=== PATIENT | male | born 1950 | race Caucasian/White ===

== ENCOUNTER 2021-02-07 09:39 | Outpatient (REF) | payer MEDICARE, SELFPAY ==
[2021-02-07 11:24] LABS: MANUAL DIFF FLAG NO
[2021-02-07 11:44] LABS: Basophils Percent Auto 0.4 % (0-2); Eosinophils Absolute Auto 0.1 X10*3/uL (0.0-0.4); Hematocrit 42.6 % (42-52); Hemoglobin 14.6 g/dl (14.0-18.0); Imm Gran Abs Auto 0.01 X10*3/uL (0.00-0.03); Imm Gran Pct Auto 0.2 % (0.0-0.4); Lymphocytes Absolute Auto 1.2 X10*3/uL (1.2-4.9); Lymphocytes Percent Auto 24.7 % (20-40); Mean Corpuscular HGB Conc 34.3 g/dl (31.0-36.0); Mean Corpuscular Volume 96.4 fL (80-98); Mean Platelet Volume 9.6 fL (9.4-12.4); Monocytes Absolute Auto 0.5 X10*3/uL (0.1-1.2); Monocytes Percent Auto 10.2 % (2-11); Neutrophils Absolute Auto 2.9 X10*3/uL (2.0-8.3); Neutrophils Percent Auto 61.5 % (45-73); Platelet Count 250 X10*3/uL (160-400); Red Blood Count 4.42 X10*6/uL (4.60-5.80); Red Cell Distribution Width 12.7 % (11.0-16.0); White Blood Count 4.7 X10*3/uL (4.8-10.8)
[2021-02-07 12:11] LABS: Alanine Aminotransferase 21 U/L (0-40); Albumin Level 4.5 g/dL (3.5-5.0); Alkaline Phosphatase 63 U/L (39-117); Anion Gap 13 (12-20); Aspartate Amino Transferase 21 U/L (5-37); Bilirubin Total 1.4 mg/dL (0.0-1.0); Blood Urea Nitrogen 17 mg/dL (9-16); Calcium 9.8 mg/dL (8.4-10.2); Carbon Dioxide 26 mmol/L (22-29); Chloride 104 mmol/L (96-108); Cholesterol 256 mg/dL; Estimated Glomerular Filt Rate > 60; Glucose Fasting 107 mg/dL (60-99); HDL Cholesterol 62 mg/dL; LDL Cholesterol Calculated 178 mg/dl; Potassium 4.4 mmol/L (3.3-5.1); Sodium 139 mmol/L (135-145); Total Protein 7.3 g/dL (6.5-8.0); Triglycerides 82 mg/dL
[2021-02-07 12:19] LABS: Thyroid Stimulating Hormone 1.74 uIU/mL (0.32-4.0)
== END 2021-02-07 09:40 | disposition home or self-care (01) ==
LOC: HO.HMGCLDS 09:39
PROVIDERS: PCP Internal Medicine; Visit Provider Internal Medicine
DX: I10 Essential (primary) hypertension (principal); F41.1 Generalized anxiety disorder; J45.20 Mild intermittent asthma, uncomplicated; E78.00 Pure hypercholesterolemia, unspecified; I83.893 Varicose veins of bilateral lower extremities with other complications
CPT/HCPCS: 36415; 80053; 80061; 84443; 85025

== ENCOUNTER 2021-09-16 11:13 | Outpatient (REF) | payer MEDICARE, SELFPAY ==
--- NOTE | ~2021-09-16 | XR_ITS ---
EXAMINATION: XR CHEST CLINICAL INFORMATION: Night sweats COMPARISON: 08/17/2017 TECHNIQUE: PA, lateral and apical lordotic views of the chest FINDINGS: Normal symmetric lung volumes. No parenchymal consolidation. No pleural effusion. No pneumothorax. Cardiomediastinal silhouette and pulmonary vascularity are within normal limits. Aorta atherosclerotic. No acute osseous abnormalities. XR/XR chest w apical lordotic IMPRESSION: Lungs are clear. No evidence of active or quiescent granulomatous disease. No obvious hilar adenopathy.
[2021-09-16 14:19] LABS: MANUAL DIFF FLAG NO
[2021-09-16 14:25] LABS: Appearance Urine CLEAR; Basophils Percent Auto 0.4 % (0-2); Color Urine YELLOW; Eosinophils Absolute Auto 0.1 X10*3/uL (0.0-0.4); Eosinophils Percent Auto 2.8 % (0-4); Glucose Urine UA NEG (NEG); Hematocrit 42.1 % (42.0-52.0); Hemoglobin 14.6 g/dl (14.0-18.0); Imm Gran Abs Auto 0.01 X10*3/uL (0.00-0.03); Imm Gran Pct Auto 0.2 % (0.0-0.4); Leukocyte Esterase Urine NEG (NEG); Lymphocytes Absolute Auto 1.4 X10*3/uL (1.2-4.9); Lymphocytes Percent Auto 27.3 % (20-40); Mean Corpuscular HGB Conc 34.7 g/dl (31.0-36.0); Mean Corpuscular Hemoglobin 32.7 pg (27.0-33.0); Mean Corpuscular Volume 94.2 fL (80.0-98.0); Mean Platelet Volume 9.8 fL (9.4-12.4); Monocytes Absolute Auto 0.6 X10*3/uL (0.1-1.2); Monocytes Percent Auto 11.4 % (2-11); Neutrophils Absolute Auto 2.9 x10*3/uL (2.0-8.3); Neutrophils Percent Auto 57.9 % (45-73); Nitrite Urine NEG (NEG); Platelet Count 266 X10*3/uL (160-400); Red Blood Count 4.47 X10*6/uL (4.60-5.80); Red Cell Distribution Width 12.8 % (11.0-16.0); Urine Blood NEG (NEG); Urine Ketones NEG (NEG); Urine Protein NEG (NEG-TRACE)
[2021-09-16 14:42] LABS: RBC Urine 0-2 /HPF (0); WBC Urine 0-2 /HPF (0-4)
[2021-09-16 14:45] LABS: Alanine Aminotransferase 31 U/L (0-40); Albumin Level 4.5 g/dL (3.5-5.0); Alkaline Phosphatase 69 U/L (39-117); Anion Gap 15 (12-20); Aspartate Amino Transferase 27 U/L (5-37); Bilirubin Total 1.7 mg/dL (0.0-1.0); Blood Urea Nitrogen 17 mg/dL (9-16); C Reactive Protein 0.04 mg/dL (< or = 0.50); Calcium 9.6 mg/dL (8.4-10.2); Carbon Dioxide 24 mmol/L (22-29); Chloride 101 mmol/L (96-108); Cholesterol 218 mg/dL; Estimated Glomerular Filt Rate > 60; Glucose Fasting 101 mg/dL (60-99); HDL Cholesterol 66 mg/dL; LDL Cholesterol Calculated 129 mg/dl; Potassium 4.3 mmol/L (3.3-5.1); Sodium 136 mmol/L (135-145); Total Protein 7.7 g/dL (6.5-8.0); Triglycerides 115 mg/dL
[2021-09-16 14:55] LABS: PSA,Total (Free>4and<10) 2.19 ng/mL (0.00-4.00); Thyroid Stimulating Hormone 1.88 uIU/mL (0.32-4.0); Vitamin D 25-OH Total 27.7 ng/mL (>30)
[2021-09-16 15:13] LABS: Erythrocyte Sedimentation Rate 2 MM/HR (0-15)
[2021-09-19 07:47] LABS: TS Negative Control Passed; TS Panel A 2; TS Panel B 0; TS Positive Control Passed; TSpotTB Negative (Negative)
== END 2021-09-16 11:14 | disposition home or self-care (01) ==
LOC: HO.HMGCLDS 11:13
PROVIDERS: PCP Internal Medicine; Visit Provider Internal Medicine
DX: Z12.5 Encounter for screening for malignant neoplasm of prostate (principal); Z11.1 Encounter for screening for respiratory tuberculosis; F41.1 Generalized anxiety disorder; I10 Essential (primary) hypertension; R35.0 Frequency of micturition; J45.20 Mild intermittent asthma, uncomplicated; I83.893 Varicose veins of bilateral lower extremities with other complications; E78.00 Pure hypercholesterolemia, unspecified; R61 Generalized hyperhidrosis
CPT/HCPCS: 36415; 71047; 80053; 80061; 81001; 82306; 84153; 84443; 85025; 85652; 86140; 86481

== ENCOUNTER 2021-11-16 13:55 | Outpatient (REF) | payer MEDICARE, SELFPAY ==
--- NOTE | ~2021-11-16 | XR_ITS ---
EXAMINATION: XR SHOULDER, LEFT XR CLAVICLE, LEFT CLINICAL INFORMATION: Recent fall, pain left side. COMPARISON: Chest radiographs 09/16/2021 TECHNIQUE: 3 views left shoulder and 2 views of the left clavicle are obtained. There are total of 5 views. FINDINGS: There is minimally displaced fracture left posterior lateral 6th rib. There is no destructive process. The left lung apex is clear and there is no pneumothorax or pleural reaction. The left clavicle and left shoulder show no fracture or dislocation. The acromioclavicular alignment is normal. There is some minor spurring at the greater tuberosity and the superior lateral acromium. PSA to call report to office. XR/XR clavicle LT IMPRESSION: 1. Fracture left posterior lateral sixth rib. No pneumothorax or pleural reaction. 2. No fracture or dislocation left shoulder, left clavicle.
--- NOTE | ~2021-11-16 | XR_ITS ---
EXAMINATION: XR HIP, LEFT CLINICAL INFORMATION: Fall, trauma, pain COMPARISON: None TECHNIQUE: AP view pelvis is performed along with AP and frog-lateral projections left hip 3 views. FINDINGS: There is no fracture or dislocation. No destructive process. There is mild narrowing superior medial left hip joint. No erosive change. The SI joints and pubis show no diastases. The bony pelvis appears intact. There are degenerative changes lower lumbar spine with vertebral spurring. Mild degenerative changes also noted right hip. Bowel gas unremarkable. XR/XR hip LT w PEL1V IMPRESSION: 1. No fracture or dislocation. 2. Mild degenerative changes lower lumbar spine and bilateral hips.
--- NOTE | ~2021-11-16 | XR_ITS ---
EXAMINATION: XR SHOULDER, LEFT XR CLAVICLE, LEFT CLINICAL INFORMATION: Recent fall, pain left side. COMPARISON: Chest radiographs 09/16/2021 TECHNIQUE: 3 views left shoulder and 2 views of the left clavicle are obtained. There are total of 5 views. FINDINGS: There is minimally displaced fracture left posterior lateral 6th rib. There is no destructive process. The left lung apex is clear and there is no pneumothorax or pleural reaction. The left clavicle and left shoulder show no fracture or dislocation. The acromioclavicular alignment is normal. There is some minor spurring at the greater tuberosity and the superior lateral acromium. PSA to call report to office. XR/XR shoulder LT min 2V IMPRESSION: 1. Fracture left posterior lateral sixth rib. No pneumothorax or pleural reaction. 2. No fracture or dislocation left shoulder, left clavicle.
== END 2021-11-16 13:56 | disposition home or self-care (01) ==
LOC: HO.HMGCX 13:55
PROVIDERS: PCP Internal Medicine; Visit Provider Internal Medicine
DX: S79.912D Unspecified injury of left hip, subsequent encounter (principal); S49.92XD Unspecified injury of left shoulder and upper arm, subsequent encounter
CPT/HCPCS: 73000; 73030; 73502

== ENCOUNTER 2021-11-24 12:38 | Emergency (ER) | payer MEDICARE, SELFPAY ==
[2021-11-24 13:02] VITALS: BP 133/85; PULSE 96; RESP 18; TEMP 36.2; O2SAT 98; BMI 30.5
[2021-11-24 13:41] LABS: MANUAL DIFF FLAG NO
[2021-11-24 13:42] LABS: Basophils Percent Auto 0.5 % (0-2); Eosinophils Absolute Auto 0.1 X10*3/uL (0.0-0.4); Eosinophils Percent Auto 1.9 % (0-4); Hematocrit 43.4 % (42.0-52.0); Hemoglobin 14.9 g/dl (14.0-18.0); Imm Gran Abs Auto 0.01 X10*3/uL (0.00-0.03); Imm Gran Pct Auto 0.2 % (0.0-0.4); Lymphocytes Absolute Auto 1.3 X10*3/uL (1.2-4.9); Lymphocytes Percent Auto 20.1 % (20-40); Mean Corpuscular HGB Conc 34.3 g/dl (31.0-36.0); Mean Corpuscular Hemoglobin 32.7 pg (27.0-33.0); Mean Corpuscular Volume 95.2 fL (80.0-98.0); Mean Platelet Volume 8.8 fL (9.4-12.4); Monocytes Absolute Auto 0.7 X10*3/uL (0.1-1.2); Monocytes Percent Auto 10.4 % (2-11); Neutrophils Absolute Auto 4.2 x10*3/uL (2.0-8.3); Neutrophils Percent Auto 66.9 % (45-73); Platelet Count 261 X10*3/uL (160-400); Red Blood Count 4.56 X10*6/uL (4.60-5.80); Red Cell Distribution Width 12.7 % (11.0-16.0); White Blood Count 6.3 X10*3/uL (4.8-10.8)
[2021-11-24 14:11] LABS: Alanine Aminotransferase 19 U/L (0-40); Albumin Level 4.6 g/dL (3.5-5.0); Alkaline Phosphatase 82 U/L (39-117); Anion Gap 13 (12-20); Aspartate Amino Transferase 26 U/L (5-37); Bilirubin Total 1.6 mg/dL (0.0-1.0); Blood Urea Nitrogen 14 mg/dL (9-16); Calcium 10.6 mg/dL (8.4-10.2); Carbon Dioxide 28 mmol/L (22-29); Chloride 101 mmol/L (96-108); Creatinine Clr Calc Pharmacy 69.9; Estimated Glomerular Filt Rate > 60; Glucose Random 115 mg/dL (60-115); Potassium 4.4 mmol/L (3.3-5.1); Sodium 138 mmol/L (135-145); Total Protein 7.7 g/dL (6.5-8.0)
== END 2021-11-24 17:00 | disposition left against medical advice (07) ==
PROVIDERS: Emergency Provider Emergency Medicine; PCP Internal Medicine
DX: R47.9 Unspecified speech disturbances (principal)
CPT/HCPCS: 36415; 80053; 85025; 99282; 99283

== ENCOUNTER 2021-11-25 10:59 | Emergency (ER) | payer MEDICARE, SELFPAY ==
--- NOTE | ~2021-11-25 | MR_ITS ---
EXAMINATION: MRI BRAIN WITHOUT CONTRAST CLINICAL INFORMATION: Infarct seen on CT head COMPARISON: CT scan of the head 11/25/2021. TECHNIQUE: Multiplanar MR imaging of the brain was performed without contrast. FINDINGS: There is gliosis and encephalomalacia involving the right superior frontal gyrus consistent with chronic changes of an old infarct within the vascular territory of the right anterior cerebral artery. A few scattered nonspecific foci of T2 FLAIR signal hyperintensity are also visualized within the periventricular white matter. No acute territorial infarct. No pathological magnetic susceptibility artifact. Intracranial vascular flow voids are maintained. There is no mastoid or middle ear effusion. Trivial mucosal thickening within ethmoid air cells. Globes and orbits are symmetric. MR/MR head/brain wo con IMPRESSION: There is a small chronic cortical infarct involving the right frontal lobe and a few scattered chronic small vessel ischemic changes within the periventricular white matter. No evidence of acute territorial infarct or hemorrhage.
--- NOTE | ~2021-11-25 | US_ITS ---
EXAMINATION: US EXTRACRANIAL CAROTID DUPLEX, BILATERAL CLINICAL INFORMATION: TIA COMPARISON: None TECHNIQUE: Real-time ultrasound and Doppler techniques (integrating B-mode 2-D vascular images, Doppler spectral analysis and color-flow Doppler imaging) were utilized to interrogate the extracranial carotid arteries, the vertebral arteries and proximal subclavian arteries bilaterally. The degree of stenosis is determined by criteria similar to NASCET. FINDINGS: Right Side: 1. There is no atherosclerotic plaque seen in the bifurcation/proximal ICA region. 2. The common carotid artery PSV proximally is 76 cm/s and distally 51 cm/s. 3. The proximal internal carotid artery velocities are 62 cm/s systolic and 28 cm/s diastolic. 4. The proximal external carotid artery PSV is 80 cm/s. 5. The vertebral artery shows antegrade flow. 6. The subclavian artery waveforms are normal. Left Side: 1. There is minimal atherosclerotic plaque seen in the bifurcation/proximal ICA region. 2. The common carotid artery PSV proximally is 95 cm/s and distally 53 cm/s. 3. The proximal internal carotid artery velocities are 64 cm/s systolic and 15 cm/s diastolic. 4. The proximal external carotid artery PSV is 82 cm/s. 5. The vertebral artery shows antegrade flow. 6. The subclavian artery waveforms are normal. US/US carotid duplex BI IMPRESSION: 1. RIGHT: Normal right internal carotid artery without atherosclerotic plaque or hemodynamically significant stenosis. 2. LEFT: Minimal, non-hemodynamically significant stenosis of the proximal left internal carotid artery corresponding to a 0-49% stenosis by velocity criteria.
--- NOTE | ~2021-11-25 | CT_ITS ---
EXAMINATION: CT HEAD WITHOUT CONTRAST CLINICAL INFORMATION: Loss of ability to speak COMPARISON: None TECHNIQUE: Contiguous axial imaging was performed from the skull base to vertex without intravenous administration of contrast. This CT examination was performed using dose optimization techniques as appropriate, variously including the following: *Automated exposure control *Adjustment of mA and/or kV according to patient size (this includes techniques or standardized protocols for targeted exams where dose is matched to indication/reason for exam; i.e. extremities or head) *Use of iterative reconstruction technique DLP: 792 mGy-cm FINDINGS: There is no evidence of an extra-axial collection. There is no evidence of intra-axial or extra-axial hemorrhage. The ventricles and extra-axial CSF spaces are appropriate. There are bilateral basal ganglia and external capsule lacunar infarcts. No old exams are available for comparison and these are of indeterminate age. There is also evidence of an right frontal subcortical white matter infarct in the region of the precentral gyrus, age indeterminate. This could could be better evaluated with brain MRI if clinically indicated. No mass or mass effect is seen. There is evidence of atherosclerotic disease. Review at bone windows is unremarkable. CT/CT head/brain wo con IMPRESSION: Bilateral basal ganglia and external capsule and right frontal subcortical white matter infarcts, age indeterminate. This could be better evaluated with brain MRI if clinically indicated. No hemorrhage.
[2021-11-25 11:02] VITALS: BP 168/99; PULSE 90; RESP 18; TEMP 36.7; O2SAT 99; BMI 30.5
--- NOTE | 2021-11-25 12:07 | ED_ITS ---
HPI - General Adult General Chief complaint: General Medical Stated complaint: loss ability to speak Time Seen by Provider: 11/25/21 11:15 Source: patient Mode of arrival: ambulatory Limitations: no limitations History of Present Illness HPI narrative: Patient is a 71 year old male presenting to the emergency department today requesting evaluation after he lost the ability to speak for approximately 1 minute, 2 days ago. Patient states that he went into a gas station last Sunday and he couldn't speak when he attempted to. He states that this resolved after 1 minute. Patient states that he had this happen once a decade ago and was told then that it was a TIA. Patient states that he was seen here yesterday and had labs drawn, but left before being seen by a provider or getting results. Patient denies any current dizziness, lightheadedness, abdominal pain, nausea, vomiting, fever, chills, blurry vision, double vision, loss of vision, chest pain, difficulty breathing, shortness of breath, back pain, night sweats, pain with urination, increased urinary frequency, increased urinary urgency, blood in [his/her] urine or stool, syncope or a near syncopal episode, recent trauma or falls, bowel incontinence, bladder incontinence, bowel retention, bladder retention, or any other complaints at this time. Onset (ago): day(s) Related Data Allergies Allergy/AdvReac Type Severity Reaction Status Date / Time ENVIRONMENTAL Allergy Unknown UNKNOWN Uncoded 06/17/20 14:35 environmental Allergy Unknown Uncoded 03/02/14 00:00 Review of Systems Constitutional: Constitutional: Reports no additional constitutional complaints, Denies chills, Denies fever(s) and Denies night sweats Eyes: Eyes: Reports no additional eye complaints, Denies blurry vision, Denies change in vision, Denies diplopia, Denies eye discharge, Denies loss of vision and Denies eye pain ENT: Denies dizziness Cardiovascular: Cardiovascular: Reports no additional cardiovascular complaints, Denies chest pain, Denies lightheadedness, Denies Loss of Consciousness and Denies dyspnea Respiratory: Respiratory: Reports no additional respiratory complaints and Denies dyspnea Gastrointestinal: Gastrointestinal: Reports no additional gastrointestinal complaints, Denies abdominal pain, Denies melena, Denies hematochezia, Denies change in bowel habits and Denies change in stool character Genitourinary: Genitourinary: Reports no additional male genitourinary complaints, Denies hematuria, Denies oliguria, Denies difficulty urinating, Denies dysuria, Denies urinary frequency, Denies urinary hesitancy, Denies urinary incontinence and Denies urinary urgency Musculoskeletal: Musculoskeletal: Reports no additional musculoskeletal complaints, Denies numbness and Denies tingling Neurologic: Denies Abnormal speech present, Denies dizziness, Denies loss of v ision, Denies numbness and Denies tingling Psychiatric: Psychiatric: Reports no additional psychiatric complaints Endocrine: Endocrine: Reports no additional endocrine complaints Hematologic/Lymphatic: Hematologic/Lymphatic: Reports no additional hematologic/lymphatic complaints Allergic/Immunologic: Allergic/Immunologic: Reports no additional allergic/immunologic complaints [facility] Past Medical History Attestation statement: The following information was validated with the patient. Source: old records reviewed Medical History Anxiety Asthma Social History Social History Advance Directives: No Advance Directives Information Provided: Yes Physical Exam ED Vital Signs: Vital Signs - 24 hr 11/25/21 11:02 11/25/21 14:14 11/25/21 16:17 Temperature 98.0 F 97.4 F 97.8 F Pulse Rate 90 88 81 Respiratory Rate 18 20 16 Blood Pressure 168/99 H 162/89 H 149/93 H Pulse Oximetry 99 100 96 BMI result Body Mass Index 30.5 Const General: cooperative, no acute distress, alert and awake Nutritional Appearance: well nourished Orientation/consciousness: patient oriented x3 Limitations: no limitations [facility] Head: Yes normal to inspection and Yes atraumatic Ears: hearing grossly normal bilaterally and external ears normal General nose exam: Normal external nose present, no nasal discharge noted and no epistaxis Face and sinus: Yes normal facial exam, No abrasion and No laceration Mouth: Normal oral and palatal mucosa present, no drooling and no muffled voice Eyes General: appearance normal, both eyes and all related structures Periorbital: periorbital findings normal Eyelids: Yes eyelids normal Conjunctivae: conjunctivae normal Pupils: Equal, round and reactive pupils present EOM: EOMs intact bilaterally Neck Neck: Yes normal visual inspection, Yes full ROM and Yes no lymphadenopathy Chest Chest palpation & inspection: normal inspection of the chest Resp Effort & Inspection: normal respiratory effort and able to speak in complete sentences Auscultation: clear to auscultation bilaterally Cardio Rate: regular rate Rhythm: regular rhythm GI Inspection: Yes normal to inspection Neuro General: patient oriented x3 and moves all extremities Cranial nerves: Yes Equal, round and reactive pupils present Cognition (Neuro): normal cognition Speech: No Abnormal speech present, No Expressive aphasia present, No Receptive aphasia present and No Global aphasia present Gait exam (Neuro): Normal gait present Motor exam (neuro): 5/5 motor strength present throughout Sensory Exam: Normal double simultaneous stimulation for sensation Coordination: [id number] test normal Extrem General: Yes normal to inspection, Yes full ROM and Yes capillary refill normal Psych Appearance: grossly normal Mental Status: mental status grossly normal Affect: normal affect Attitude: cooperative Thought process: Normal thought process present Thought content: Normal thought content present Insight: Good insight present (Psych) NIH Stroke Scale Internal: Initial- Upon Arrival Time: 11:15 Level of Consciousness: Alert Level of Consciousness Questions: Answers both questions correctly Level of Consciousness Commands: Performs both tasks correctly Best Gaze: Normal Visual: No visual loss Facial Palsy: Normal Motor Arm (Right): No drift Motor Arm (Left): No drift Motor Leg (Right): No drift Motor Leg (Left): No drift Limb Ataxia: Absent Sensory: Normal Best Language: No aphasia Dysarthia: Normal Extinction and Inattention: No abnormality Score: 0 Course Consultations Consultation #1: Spoke to the neurologist evaluation assistant, Dr. Santillan who recommended I obtain a carotid US and an EKG on the patient to rule out carotid cause or atrial fibrillation as a cause of TIA. Recommends the patient be discharged if both studies are negative, starting the patient on ASA. Time: 15:55 Medical Decision Making [facility] Narrative Medical decision making narrative: Patient is a 71 year old male presenting to the emergency department today with after a possible TIA. Patient's physical exam was unremarkable including a negative neurological exam. Patient's blood work was unremarkable. Patient's EKG was unremarkable. Patient's brain CT showed infarcts of unknown age. Patient's brain MRI showed old infarct and no acute process. Patient's carotid US showed no acute stenosis or occlusion. I explained my physical exam findings as well as all test results to the patient. I answered all questions asked by the patient. I spoke to Dr. Santillan, the neurologist evaluation assistant, who recommended the patient be started on a daily ASA and follow up on an outpatient basis with neurology. I stressed the importance of the patient taking his medication as prescribed. I stressed the importance of the patient following up with his primary care provider. I stressed the importance of the patient returning to the emergency department immediately if his symptoms were to worsen or if he were to develop any dizziness, shortness of breath, difficulty breathing, chest pain, blurry vision, loss of vision, nausea, vomiting, abdominal pain, fever, chills, back pain, or any other complaints. Patient verbalized agreement and understanding with this treatment plan and discharge. Differential Diagnosis Differential Diagnosis: CVA, TIA, medical examination Medical Records Medical records reviewed: Yes I reviewed the patient's medical records. Lab Data Lab results reviewed: Yes I reviewed the patient's lab results. Lab results narrative: Labs from 11/24/2021 were unremarkable. Result diagrams: 11/25/21 13:56 11/25/21 13:56 Labs: Lab Results 11/25/21 11/25/21 11/25/21 Range/Units 13:56 13:56 13:56 WBC 6.5 (4.8-10.8) X10*3/uL RBC 4.55 L (4.60-5.80) X10*6/uL Hgb 14.7 (14.0-18.0) g/dl Hct 42.7 (42.0-52.0) % MCV 93.8 (80.0-98.0) fL MCH 32.3 (27.0-33.0) pg MCHC 34.4 (31.0-36.0) g/dl RDW 12.6 (11.0-16.0) % Plt Count 278 (160-400) X10*3/uL MPV 8.8 L (9.4-12.4) fL Immature Gran % (Auto) 0.3 (0.0-0.4) % Neut % (Auto) 66.6 (45-73) % Lymph % (Auto) 20.2 (20-40) % [place] % (Auto) 10.9 (2-11) % Eos % (Auto) 1.5 (0-4) % Baso % (Auto) 0.5 (0-2) % Lymph # (Auto) 1.3 (1.2-4.9) X10*3/uL [place] # (Auto) 0.7 (0.1-1.2) X10*3/uL Eos # (Auto) 0.1 (0.0-0.4) X10*3/uL Baso # (Auto) 0.0 (0.0-0.2) X10*3/uL Abs Immat Gran (auto) 0.02 (0.00-0.03) X10*3/uL Absolute Neuts (auto) 4.4 (2.0-8.3) x10*3/uL Absolute Nucleated RBC 0.000 (0.0-0.012) X10*3/uL Nucleated RBC % (auto) 0.0 (0.0-0.2) /100WBC PT (9.9-13.0) SEC INR (0.9-1.1) APTT (24.1-38.0) SEC Sodium 136 (135-145) mmol/L Potassium 4.6 (3.3-5.1) mmol/L Chloride 100 (96-108) mmol/L Carbon Dioxide 27 (22-29) mmol/L Anion Gap 14 (12-20) BUN 15 (9-16) mg/dL Creatinine 0.94 (0.5-1.4) mg/dL Estim Creat Clear Calc 87.7 Estimated GFR > 60 Random Glucose 109 (60-115) mg/dL Calcium 10.2 (8.4-10.2) mg/dL Magnesium 1.8 (1.6-2.6) mg/dL Total Bilirubin 1.8 H (0.0-1.0) mg/dL AST 28 (5-37) U/L ALT 21 (0-40) U/L Alkaline Phosphatase 83 (39-117) U/L Troponin I High Sens 4.7 (<3.5-35.0) ng/L Total Protein 7.9 (6.5-8.0) g/dL Albumin 4.6 (3.5-5.0) g/dL COVID-19 ([facility]) (Negative) COVID-19 Clin Com 11/25/21 11/25/21 Range/Units 13:56 13:56 WBC (4.8-10.8) X10*3/uL RBC (4.60-5.80) X10*6/uL Hgb (14.0-18.0) g/dl Hct (42.0-52.0) % MCV (80.0-98.0) fL MCH (27.0-33.0) pg MCHC (31.0-36.0) g/dl RDW (11.0-16.0) % Plt Count (160-400) X10*3/uL MPV (9.4-12.4) fL Immature Gran % (Auto) (0.0-0.4) % Neut % (Auto) (45-73) % Lymph % (Auto) (20-40) % [place] % (Auto) (2-11) % Eos % (Auto) (0-4) % Baso % (Auto) (0-2) % Lymph # (Auto) (1.2-4.9) X10*3/uL [place] # (Auto) (0.1-1.2) X10*3/uL Eos # (Auto) (0.0-0.4) X10*3/uL Baso # (Auto) (0.0-0.2) X10*3/uL Abs Immat Gran (auto) (0.00-0.03) X10*3/uL Absolute Neuts (auto) (2.0-8.3) x10*3/uL Absolute Nucleated RBC (0.0-0.012) X10*3/uL Nucleated RBC % (auto) (0.0-0.2) /100WBC PT 10.8 (9.9-13.0) SEC INR 1.0 (0.9-1.1) APTT 36.2 (24.1-38.0) SEC Sodium (135-145) mmol/L Potassium (3.3-5.1) mmol/L Chloride (96-108) mmol/L Carbon Dioxide (22-29) mmol/L Anion Gap (12-20) BUN (9-16) mg/dL Creatinine (0.5-1.4) mg/dL Estim Creat Clear Calc Estimated GFR Random Glucose (60-115) mg/dL Calcium (8.4-10.2) mg/dL Magnesium (1.6-2.6) mg/dL Total Bilirubin (0.0-1.0) mg/dL AST (5-37) U/L ALT (0-40) U/L Alkaline Phosphatase (39-117) U/L Troponin I High Sens (<3.5-35.0) ng/L Total Protein (6.5-8.0) g/dL Albumin (3.5-5.0) g/dL COVID-19 ([facility]) Negative (Negative) COVID-19 Clin Com See Note Imaging Data CT scan - head: Attestation: I personally reviewed and interpreted this imaging study as follows: Radiologist's impression: EXAMINATION: CT HEAD WITHOUT CONTRAST CLINICAL INFORMATION: Loss of ability to speak? COMPARISON: None TECHNIQUE: Contiguous axial imaging was performed from the skull base to vertex without intravenous administration of contrast. This CT examination was performed using dose optimization techniques as appropriate, variously including the following: *Automated exposure control *Adjustment of mA and/or kV according to patient size (this includes techniques or standardized protocols for targeted exams where dose is matched to indication/reason for exam; i.e. extremities or head) *Use of iterative reconstruction technique DLP: 792 mGy-cm FINDINGS: There is no evidence of an extra-axial collection. There is no evidence of intra-axial or extra-axial hemorrhage. The ventricles and extra-axial CSF spaces are appropriate. There are bilateral basal ganglia and external capsule lacunar infarcts. No old exams are available for comparison and these are of indeterminate age. There is also evidence of an right frontal subcortical white matter infarct in the region of the precentral gyrus, age indeterminate. This could could be better evaluated with brain MRI if clinically indicated. No mass or mass effect is seen. There is evidence of atherosclerotic disease. Review at bone windows is unremarkable. CT/CT head/brain wo con IMPRESSION: Bilateral basal ganglia and external capsule and right frontal subcortical white matter infarcts, age indeterminate. This could be better evaluated with brain MRI if clinically indicated. No hemorrhage. Dictated By: Grace Mast MD Signed By: Electronically signed by Grace Mast MD 11/25/21 1334 MRI - head: Attestation: I personally reviewed and interpreted this imaging study as follows: Radiologist's impression: EXAMINATION: MRI BRAIN WITHOUT CONTRAST CLINICAL INFORMATION: Infarct seen on CT head? COMPARISON: CT scan of the head 11/25/2021.? TECHNIQUE: Multiplanar MR imaging of the brain was performed without contrast.? FINDINGS: There is gliosis and encephalomalacia involving the right superior frontal gyrus consistent with chronic changes of an old infarct within the vascular territory of the right anterior cerebral artery. A few scattered nonspecific foci of T2 FLAIR signal hyperintensity are also visualized within the periventricular white matter. No acute territorial infarct. No pathological magnetic susceptibility artifact. Intracranial vascular flow voids are maintained. There is no mastoid or middle ear effusion. Trivial mucosal thickening within ethmoid air cells. Globes and orbits are symmetric.? MR/MR head/brain wo con IMPRESSION: There is a small chronic cortical infarct involving the right frontal lobe and a few scattered chronic small vessel ischemic changes within the periventricular white matter. No evidence of acute territorial infarct or hemorrhage.? Dictated By: RISSA SAENZ MD Signed By: Electronically signed by RISSA SAENZ MD 11/25/21 9603 Carotid Doppler Study: Attestation: I personally reviewed and interpreted this imaging study as follows: Radiologist's impression: EXAMINATION: US EXTRACRANIAL CAROTID DUPLEX, BILATERAL CLINICAL INFORMATION: TIA COMPARISON: None TECHNIQUE: Real-time ultrasound and Doppler techniques (integrating B-mode 2-D vascular images, Doppler spectral analysis and color-flow Doppler imaging) were utilized to interrogate the extracranial carotid arteries, the vertebral arteries and proximal subclavian arteries bilaterally. The degree of stenosis is determined by criteria similar to NASCET. FINDINGS: Right Side: 1. There is no atherosclerotic plaque seen in the bifurcation/proximal ICA region. 2. The common carotid artery PSV proximally is 76 cm/s and distally 51 cm/s. 3. The proximal internal carotid artery velocities are 62 cm/s systolic and 28 cm/s diastolic. 4. The proximal external carotid artery PSV is 80 cm/s. 5. The vertebral artery shows antegrade flow. 6. The subclavian artery waveforms are normal. Left Side: 1. There is minimal atherosclerotic plaque seen in the bifurcation/proximal ICA region. 2. The common carotid artery PSV proximally is 95 cm/s and distally 53 cm/s. 3. The proximal internal carotid artery velocities are 64 cm/s systolic and 15 cm/s diastolic. 4. The proximal external carotid artery PSV is 82 cm/s. 5. The vertebral artery shows antegrade flow. 6. The subclavian artery waveforms are normal. US/US carotid duplex BI IMPRESSION: 1. RIGHT: Normal right internal carotid artery without atherosclerotic plaque or hemodynamically significant stenosis. ? 2. LEFT: Minimal, non-hemodynamically significant stenosis of the proximal left internal carotid artery corresponding to a 0-49% stenosis by velocity criteria. Dictated By: Adiel Bee MD Signed By: Electronically signed by Adiel Bee MD 11/25/21 5248 ECG Data Attestation: I personally reviewed and interpreted this ECG as follows: Prior ECG tracings: available for review Interpretation: Vent. Rate: 075 BPM ? ? Atrial Rate: 075 BPM P-R Int: 146 ms? QRS Dur: 140 ms QT Int: 382 ms ? ? ? P-R-T Axes: 000 -33 047 degrees QTc Int: 426 ms ? Normal sinus rhythm Left axis deviation Right bundle branch block Abnormal ECG When compared with ECG of 17-AUG-2004 10:21, Right bundle branch block is now Present Discharge Plan Discharge Clinical Impression: Brain TIA Patient Disposition: Home, Self-Care Instructions: Transient Ischemic Attack (ED) Additional Instructions: Follow up with Neurology. Follow up with your primary care provider. Return to the emergency department immediately if your symptoms worsen or if you develop any dizziness, shortness of breath, difficulty breathing, chest pain, blurry vision, loss of vision, nausea, vomiting, abdominal pain, fever, chills, back pain, or any other complaints. Referrals: Kimberley Santillan MD [Physician] - 2 days Print Language: Gabonese
[2021-11-25 14:01] LABS: MANUAL DIFF FLAG NO
[2021-11-25 14:05] LABS: Basophils Percent Auto 0.5 % (0-2); Eosinophils Absolute Auto 0.1 X10*3/uL (0.0-0.4); Eosinophils Percent Auto 1.5 % (0-4); Hematocrit 42.7 % (42.0-52.0); Hemoglobin 14.7 g/dl (14.0-18.0); Imm Gran Abs Auto 0.02 X10*3/uL (0.00-0.03); Imm Gran Pct Auto 0.3 % (0.0-0.4); Lymphocytes Absolute Auto 1.3 X10*3/uL (1.2-4.9); Lymphocytes Percent Auto 20.2 % (20-40); Mean Corpuscular HGB Conc 34.4 g/dl (31.0-36.0); Mean Corpuscular Hemoglobin 32.3 pg (27.0-33.0); Mean Corpuscular Volume 93.8 fL (80.0-98.0); Mean Platelet Volume 8.8 fL (9.4-12.4); Monocytes Absolute Auto 0.7 X10*3/uL (0.1-1.2); Monocytes Percent Auto 10.9 % (2-11); Neutrophils Absolute Auto 4.4 x10*3/uL (2.0-8.3); Neutrophils Percent Auto 66.6 % (45-73); Platelet Count 278 X10*3/uL (160-400); Red Blood Count 4.55 X10*6/uL (4.60-5.80); Red Cell Distribution Width 12.6 % (11.0-16.0); White Blood Count 6.5 X10*3/uL (4.8-10.8)
[2021-11-25 14:08] LABS: Prothrombin Time 10.8 SEC (9.9-13.0)
[2021-11-25 14:11] LABS: Partial Thromboplastin Time 36.2 SEC (24.1-38.0)
[2021-11-25 14:14] VITALS: BP 162/89; PULSE 88; RESP 20; TEMP 36.3; O2SAT 100
--- NOTE | 2021-11-25 14:15 | PC.NURSE ---
pt comfortable at bedside, denies any pain or discomfort. Right 20 g IV inserted without problem. Labs drawn and Covid swab obtained.
[2021-11-25 14:18] LABS: COVID-19 Test Negative (Negative); IDNOW Serial# 16C4AD1C
[2021-11-25 14:26] LABS: Alanine Aminotransferase 21 U/L (0-40); Albumin Level 4.6 g/dL (3.5-5.0); Alkaline Phosphatase 83 U/L (39-117); Anion Gap 14 (12-20); Aspartate Amino Transferase 28 U/L (5-37); Bilirubin Total 1.8 mg/dL (0.0-1.0); Blood Urea Nitrogen 15 mg/dL (9-16); Calcium 10.2 mg/dL (8.4-10.2); Carbon Dioxide 27 mmol/L (22-29); Chloride 100 mmol/L (96-108); Creatinine Clr Calc Pharmacy 87.7; Estimated Glomerular Filt Rate > 60; Glucose Random 109 mg/dL (60-115); Magnesium 1.8 mg/dL (1.6-2.6); Potassium 4.6 mmol/L (3.3-5.1); Sodium 136 mmol/L (135-145); Total Protein 7.9 g/dL (6.5-8.0)
[2021-11-25 14:31] LABS: Troponin-I High Sensitivity 4.7 ng/L (<3.5-35.0)
--- NOTE | 2021-11-25 15:56 | ECG_ITS ---
Test Reason : ARRYTHMIA Blood Pressure : / mmHG Vent. Rate : 075 BPM Atrial Rate : 075 BPM P-R Int : 146 ms QRS Dur : 140 ms QT Int : 382 ms P-R-T Axes : 000 -33 047 degrees QTc Int : 426 ms Normal sinus rhythm Left axis deviation Right bundle branch block Abnormal ECG When compared with ECG of 17-AUG-2004 10:21, Right bundle branch block is now Present Referred By: Camille Mejia Electronically Signed By:SHARA CHIRINOS
[2021-11-25 16:17] VITALS: BP 149/93; PULSE 81; RESP 16; TEMP 36.6; O2SAT 96
== END 2021-11-25 17:46 | disposition home or self-care (01) ==
PROVIDERS: Physician Assistant Medical; Emergency Provider Emergency Medicine; PCP Internal Medicine
DX: G45.9 Transient cerebral ischemic attack, unspecified (principal); R47.89 Other speech disturbances; R29.700 NIHSS score 0; Z20.822 Contact with and (suspected) exposure to COVID-19; Z79.899 Other long term (current) drug therapy
CPT/HCPCS: 36415; 70450; 70551; 80053; 83735; 84484; 85025; 85610; 85730; 87635; 93005; 93880; 99284; 99285

== ENCOUNTER 2021-11-26 16:24 | Emergency (ER) | payer MEDICARE, SELFPAY ==
[2021-11-26 16:36] VITALS: BP 144/90; PULSE 84; RESP 18; TEMP 36.8; O2SAT 100; BMI 30.5
--- NOTE | 2021-11-26 19:46 | ED.WOUNDLAC ---
HPI - Wound/Laceration General Chief Complaint: Wound/Laceration Stated Complaint: lac. on head Time Seen by Provider: 11/26/21 17:46 Source: patient Mode of arrival: ambulatory Limitations: no limitations History of Present Illness HPI narrative: 71-year-old male presents with laceration to the right parietal scalp. Patient scraped his head on a garage door, did not lose consciousness and has no other complaints. Unknown when last Tdap vaccine was given. Onset (ago): hour(s) (Within the hour of arrival) Location: scalp Place: home Patient tetanus UTD: No Context: accidental Associated symptoms: none Treatments prior to arrival: bandage Related Data Allergies Allergy/AdvReac Type Severity Reaction Status Date / Time ENVIRONMENTAL Allergy Unknown UNKNOWN Uncoded 06/17/20 14:35 environmental Allergy Unknown Uncoded 03/02/14 00:00 Review of Systems Review of Systems: Constitutional: No Fever, No Chills ENT/Mouth: No Ear Pain, No Hoarseness, No sore throat Eyes: No Eye Pain, No Swelling, No Redness, No Foreign Body Cardiovascular: No Chest Pain, No SOB Respiratory: No Cough, No Dyspnea Gastrointestinal: No Nausea, No Vomiting, No Diarrhea, No abdominal Pain Genitourinary: No Dysuria, No Hematuria Musculoskeletal: positive scalp pain, No Myalgias, No Joint Swelling Skin: Positive scalp laceration, No rash Neuro: No Weakness, No Numbness, No Paresthesias, No Loss of Consciousness, No Dizziness, No Headache Psych: No Anxiety/Panic, No Depression Heme/Lymph: no easy bruising, no Lymphadenopathy Endocrine: No Polyuria, No Polydipsia Yes all other systems are reviewed and are negative [facility] Past Medical History Attestation statement: The following information was validated with the patient. Source: old records reviewed Medical History Anxiety Asthma Social History Social History Advance Directives: No Advance Directives Information Provided: No Physical Exam Vital Signs: Vital Signs: Last Vital Signs Temp 98.3 F 11/26/21 16:36 Pulse 84 11/26/21 16:36 Resp 18 11/26/21 16:36 BP 144/90 H 11/26/21 16:36 Pulse Ox 100 11/26/21 16:36 BMI result Body Mass Index 30.5 Appearance: Alert. Oriented X3. No acute distress. Head: Normal external exam. Normocephalic. No Gomez signs noted. No raccoon eyes noted Eyes: PERRLA. EOMI. Conjunctiva and sclera normal. Eyelids normal. ENT: TM's Normal. Pharynx normal. Uvula midline. Moist mucous membranes. No trismus noted. No drooling noted. No muffled voice noted. Neck: Normal inspection. Neck supple. No adenopathy. Thyroid Normal. No meningeal signs. No neck mass noted. CVS: Normal heart rate and rhythm. Heart sound normal. No murmurs noted. Pulses equal to all extremities. Respiratory: No respiratory distress. Painless inspiration. Breath sounds normal. No wheezes/rales/rhonchi noted. Chest nontender. No accessory muscle usage noted or decreased air movement noted. Abdomen: Soft and nontender. Bowel sounds normal in all 4 quadrants. No distention noted. No organomegaly noted. No visible injury noted. Back: No CVA tenderness. Full range of motion noted. Skin: Positive 6 cm laceration to the scalp, otherwise Skin warm and dry. Normal skin color. Normal skin turgor. Extremities: No lower extremity edema. Extremities exhibit normal range of motion. Extremities nontender. Neuro: cranial nerves 2-12 intact, no focal neural deficits, strength 5/5 to all extremities, No motor deficit. No sensory deficit. Course Course Course Narrative: 71-year-old male presents with laceration to his scalp after scraping his head on his garage door. Did not lose consciousness or hit his head. He was evaluated this facility yesterday for suspected TIA. States that he no longer has any of the symptoms that present when he was evaluated at the emergency department yesterday. His gait is well balanced well coordinated, cranial nerves 2-12 intact, no focal neural deficits. Laceration to the scalp is approximately 6 cm. Irrigated with copious amounts of normal saline. Six luz placed without difficulty. Patient does not report any adverse effects from the procedure. Upon discharge instructions, patient stated that he had a scattered rash to his abdomen that was not very bothersome. He was advised to follow up with his primary care physician for further care. Patient verbalized understanding of and agrees to plan of care discharge home. Verbalized understanding of signs and symptoms indicating need for emergent intervention MDM - Wound/Laceration Differential Diagnosis Differential diagnosis: Likely laceration Medical Records Attestation: I reviewed the patient's medical records. Procedures Laceration Laceration 1: Site: scalp Side (If applicable): right Size (cm): 6 Description: linear Depth: simple, single layer Pre-repair: wound explored, irrigated extensively and deep structures intact Skin layer closed with: other ([place] 6) Number of sutures: 6 Discharge Plan Discharge Clinical Impression: Laceration Patient Disposition: Home, Self-Care Instructions: Staple Care (ED), Head Laceration (ED) Additional Instructions: You were evaluated for laceration to your scalp. We placed 6 luz. Please return to Primary Care, urgent care or emergency department 10 days to have luz removed. We updated your Tdap vaccine today. Follow up with primary care physician for scattered rash on your abdomen. Thank you for choosing this emergency department for evaluation. Please follow-up with primary care physician as needed. Return to the emergency department for any new, concerning, or worsening symptoms. Interventions: ED Discharge Assessment Last Done: 11/26/21 20:28
[2021-11-26] MEDS: Diphth,Pertus(ACell),Tet Adult 0.5 ML SYRINGE IM (20:06)
== END 2021-11-26 20:31 | disposition home or self-care (01) ==
PROVIDERS: Emergency Provider Internal Medicine; PCP Internal Medicine
DX: S01.01XA Laceration without foreign body of scalp, initial encounter (principal); W22.09XA Striking against other stationary object, initial encounter; Y93.89 Activity, other specified; Y92.015 Private garage of single-family (private) house as the place of occurrence of the external cause; Y99.9 Unspecified external cause status
CPT/HCPCS: 10060; 90471; 90715; 96372; 99283; 99284

== ENCOUNTER → 2022-01-31 14:58 | Outpatient (BNVA) | payer MEDICARE, SELFPAY | PROVIDERS: PCP Internal Medicine; Referring Provider Internal Medicine; Visit Provider Internal Medicine Cardiovascular Disease | DX: I83.893 Varicose veins of bilateral lower extremities with other complications (principal); R07.9 Chest pain, unspecified | CPT/HCPCS: 99202 ==

== ENCOUNTER → 2022-02-08 08:15 | Outpatient (REF) | payer MEDICARE, SELFPAY ==
--- NOTE | ~2022-02-08 | NM_ITS ---
EXERCISE MYOCARDIAL PERFUSION STUDY INDICATION: Chest pain, assess for coronary disease and ischemia TECHNIQUE: The patient was brought in for an exercise perfusion study on 02/08/2022. Patient performed exercise as per Jay protocol and was injected 35 mCi of sestamibi once target heart rate was achieved. Images were obtained using the SPECT gamma camera interlaced with the gating device. Images were obtained in supine position. Resting perfusion study was performed on 02/09/2022. Patient was administered 35 mCi of sestamibi intravenously at rest. Images were then obtained in supine position. Total DLP 101mGy-cm. Images were processed with the software and compared side to side in short axis, horizontal long axis and vertical long axis views. FINDINGS: Raw images were reviewed. The stress perfusion study showed diminished tracer uptake along the inferior wall. There is improvement with CT attenuation correction and essentially normalizes and hence suggestive of diaphragmatic attenuation artifact. The gated study shows normal LV systolic function with calculated LVEF of 62%. LV cavity is normal in size. The gated study shows normal wall thickening and contraction of segments. Resting study shows no significant perfusion abnormality. With CT attenuation correction, there seems to be a lot of GI tracer uptake and hence inferior wall difficult to interpret. Gating at rest reveals normal wall motion with ejection fraction at 53%. The findings are consistent with no definite reversible or fixed perfusion defects. NM/NM abdullahi perf SPECT rest & str IMPRESSION: 1. Myocardial perfusion imaging study shows likely normal myocardial perfusion. No definitive evidence of any ischemia or infarction. 2. Gated LVEF is 62% during stress and 53% during rest. 3. Transient ischemic dilatation not present. EKG component of the test reported separately.
--- NOTE | 2022-02-08 08:18 | CA_ITS ---
Acquisition Time: 2022-02-08 08:30:26 Total Exercise Time: 00:06:45 Test Indications: CP Medications: SEE CHART Protocol: CHARU Max HR: 131 BPM 89% of Pred: 147 BPM Max BP: 138/084 mmHG Max Work Load: 8.0 METS Exercise stress test with exercise 6 min 45 sec of Charu protocol, with mild sob, no chest discomfort, with isolated PVC, with normotensive response to exercise, without EKG changes meeting criteria for ischemia. Nuclear images pending. Test reviewed with Dr Davalos Referred By: Ismael Davalos Overread By: GIL AYALA
== END ==
LOC: HO.CARD 08:15
PROVIDERS: Visit Provider Internal Medicine Cardiovascular Disease
DX: R07.9 Chest pain, unspecified (principal)
CPT/HCPCS: 78452; 93017; A9500

== ENCOUNTER 2022-03-06 10:39 | Outpatient (REF) | payer MEDICARE, SELFPAY ==
[2022-03-06 12:38] LABS: T4 Thyroxine 4.9 ug/dL (4.5-12.0); Thyroid Stimulating Hormone 1.48 uIU/mL (0.32-4.0)
[2022-03-06 13:42] LABS: Folate > 20.0 ng/mL (> or = 4.0); Vitamin B12 362 pg/mL (200-900)
== END 2022-03-06 10:40 | disposition home or self-care (01) ==
LOC: HO.LAB 10:39
PROVIDERS: PCP Internal Medicine; Visit Provider Psychiatry & Neurology Neurology
DX: G45.9 Transient cerebral ischemic attack, unspecified (principal)
CPT/HCPCS: 36415; 82607; 82746; 84436; 84443

== ENCOUNTER → 2022-03-14 09:16 | Outpatient (REF) | payer MEDICARE, SELFPAY ==
--- NOTE | 2022-03-14 09:20 | CA_ITS ---
Transthoracic Echocardiogram Patient (Last, First, Middle): Bob Victor K Gender: Male Date of : 1950 Age: 72 Procedure Date: 03/14/2022 Procedure Type: Transthoracic Echocardiogram Location: OP Height: 182.88 cm Weight: 99.79 kg BSA: 2.22 m2 Heart Rate: 70 bpm BP: 128 / 84 mmHg Pedicab Driver: SB Referring MD: Ismael Davalos MD Symptoms: R07.9 - Chest pain, unspecified Study Quality: Fair/Contrast ECG Rhythm: Sinus Conclusions: - The left ventricular systolic function is normal. The calculated ejection fraction is 59% by biplane method. - There is mild calcification of the aortic valve. - There is mild dilatation of the ascending aorta measuring 4.20 cm. Findings Procedure Information Contrast agent, definity, is being given per protocol without apparent complications. Left Ventricle Normal left ventricular cavity size. There is normal left ventricular wall thickness. The left ventricular systolic function is normal. The calculated ejection fraction is 59% by biplane method. There is no evidence of regional wall motion abnormalities. Diastolic function is normal for age. Right Ventricle Normal right ventricular cavity size and systolic function. Atria The left atrium is mildly dilated. The right atrium is normal in size. Aortic Valve There is a normal trileaflet aortic valve. There is mild calcification of the aortic valve. There is no aortic valve stenosis. There is no aortic valve regurgitation. Mitral Valve The mitral valve appears normal. There is no mitral valve regurgitation. There is no mitral valve stenosis. Pulmonic Valve The pulmonic valve is likely normal. Tricuspid Valve Normal tricuspid valve structure. There is trace tricuspid valve regurgitation. There is no evidence of pulmonary hypertension. Great Vessels There is mild dilatation of the ascending aorta measuring 4.20 cm. Venous The inferior vena cava is normal in size and collapses greater than 50% with inspiration. Pericardium/Pleural There is no evidence of pericardial effusion. Prior Study Comparison Changes noted compared to prior study dated: 10/15/2019. See comments on ascending aorta. Measurements 2D Linear Measurements IVSd: 1.00 0.6-0.9/0.6-1.0 cm LVIDd: 5.37 3.9-5.3/4.2-5.9 cm LVIDd Index: 2.42 2.4-3.2/2.2-3.1 cm/m2 LVIDs: 3.14 2.0-3.6 cm LVPWd: 0.77 0.7-1.1 cm LA Diam: 3.80 2.7-3.8/3.0-4.0 cm LAIDs Index: 1.71 1.5-2.3 cm/m2 LV Mass: 217.98 67-162/88-224 g LV Mass Index: 98.19 43-95/49-115 g/m2 LVOT Diam: 2.10 3.0+(-)1.3 cm 2D Systolic Function EF 4C: 66.50 >55% EF 2C: 53.80 >55% EF BiP: 59.10 >55% Mitral Valve MV Pk E: 0.52 MV PK A: 0.77 MV Decel Time: 172.00 E/A: 0.70 E'Lateral: 6.42 E'Medial: 5.66 E/E' Med: 9.20 E/E' Lat: 8.10 PHT: 50.00 MVA PHT: 4.40 Decel [place]: 3.04 Aortic Valve AoV Pk Avinash: 1.80 AoV Mn Avinash: 1.23 AoV VTI: 0.32 AoV Pk Grad: 13.00 Aov Mn Grad: 7.00 RITA Cont.VTI: 3.01 LVOT LVOT Pk Avinash: 1.37 LVOT Mn Avinash: 0.92 LVOT VTI: 0.28 LVOT Pk Grad: 8.00 LVOT Mn Grad: 4.00 LVOT Diam: 2.10 LVOT Area: 3.46 Diastolic Function MV Pk E: 0.52 MV Pk A: 0.77 E/A: 0.70 E'Medial: 5.66 E/E' Med: 9.20 E' Laterial: 6.42 E/E' Lat: 8.10 Right Ventricle TAPSE (mm): 17.30 TVS' Avinash: 8.60 Tricuspid Valve TR Pk Avinash: 2.03 TR Pk Grad: 16.00 RA Press: 3.00 RVSP: 19.00 Great Vessels Aorta Sinus of Valsalva: 3.64 2.0-3.5 cm Ao Asc: 4.20 2.1-3.4 cm Ao Arch: 3.50 Ao Desc: 1.80 Pulmonary Veins Pulm Vein S/D 1.30 Pulmonary Valve PV Pk Avinash: 0.96 Peak PV Grad: 4.00 Updated in Other Vendor System with Status of Final Jase Yates MD electronically signed on 03/15/2022 4:30:18 PM with status of Final
== END ==
LOC: HO.CARD 09:16
PROVIDERS: PCP Internal Medicine; Visit Provider Internal Medicine Cardiovascular Disease
DX: R07.9 Chest pain, unspecified (principal)
CPT/HCPCS: 93306; Q9957

== ENCOUNTER → 2022-03-16 08:59 | Outpatient (BNVA) | payer MEDICARE, SELFPAY | PROVIDERS: PCP Internal Medicine; Referring Provider Internal Medicine; Visit Provider Internal Medicine Cardiovascular Disease | DX: I77.89 Other specified disorders of arteries and arterioles (principal); R07.9 Chest pain, unspecified | CPT/HCPCS: 99212 ==

== ENCOUNTER → 2022-03-21 09:17 | Outpatient (BNVA) | payer MEDICARE, SELFPAY | PROVIDERS: PCP Internal Medicine; Visit Provider Surgery Vascular Surgery | DX: I83.11 Varicose veins of right lower extremity with inflammation (principal) | CPT/HCPCS: 99202 ==

== ENCOUNTER 2022-04-20 09:42 | Outpatient (REF) | payer MEDICARE, SELFPAY ==
[2022-04-23 00:04] LABS: TS Negative Control Passed; TS Panel A 0; TS Panel B 0; TS Positive Control Passed; TSpotTB Negative (Negative)
[2022-04-27 20:56] LABS: Catecholamine Frac, Total 1511 pg/mL
[2022-04-29 10:17] LABS: Testosterone, Free 66.3 pg/mL (30.0-135.0); Testosterone, Total 422 ng/dL (250-1100)
== END 2022-04-20 09:43 | disposition home or self-care (01) ==
LOC: HO.HMGCLDS 09:42
PROVIDERS: Visit Provider Internal Medicine
DX: Z11.1 Encounter for screening for respiratory tuberculosis (principal); R68.82 Decreased libido; R61 Generalized hyperhidrosis
CPT/HCPCS: 36415; 82384; 84402; 84403; 86481

== ENCOUNTER 2022-04-21 13:07 | Outpatient (REF) | payer MEDICARE, SELFPAY ==
[2022-04-28 23:48] LABS: Creatinine, 24U 1.75 g/24 h (0.50-2.15); Total Volume 2475 mL; Vanillymandelic Acid 6.7 mg/24 h (<=6.0)
== END 2022-04-21 13:08 | disposition home or self-care (01) ==
LOC: HO.HMGCLNP 13:07
PROVIDERS: Visit Provider Internal Medicine
DX: R68.82 Decreased libido (principal); R61 Generalized hyperhidrosis
CPT/HCPCS: 84585

== ENCOUNTER 2022-10-25 07:45 | Outpatient (REF) | payer MEDICARE, SELFPAY ==
[2022-10-25 08:01] LABS: MANUAL DIFF FLAG NO
[2022-10-25 08:31] LABS: Basophils Percent Auto 0.5 % (0-2); Eosinophils Absolute Auto 0.1 X10*3/uL (0.0-0.4); Hematocrit 44.4 % (42.0-52.0); Hemoglobin 14.8 g/dl (14.0-18.0); Imm Gran Abs Auto 0.01 X10*3/uL (0.00-0.03); Imm Gran Pct Auto 0.2 % (0.0-0.4); Lymphocytes Absolute Auto 1.4 X10*3/uL (1.2-4.9); Lymphocytes Percent Auto 24.9 % (20-40); Mean Corpuscular HGB Conc 33.3 g/dl (31.0-36.0); Mean Corpuscular Hemoglobin 32.3 pg (27.0-33.0); Mean Corpuscular Volume 96.9 fL (80.0-98.0); Mean Platelet Volume 9.4 fL (9.4-12.4); Monocytes Absolute Auto 0.6 X10*3/uL (0.1-1.2); Monocytes Percent Auto 10.5 % (2-11); Neutrophils Absolute Auto 3.4 x10*3/uL (2.0-8.3); Neutrophils Percent Auto 61.9 % (45-73); Platelet Count 272 X10*3/uL (160-400); Red Blood Count 4.58 X10*6/uL (4.60-5.80); Red Cell Distribution Width 12.9 % (11.0-16.0); White Blood Count 5.5 X10*3/uL (4.8-10.8)
[2022-10-25 09:12] LABS: Alanine Aminotransferase 30 U/L (0-40); Albumin Level 4.4 g/dL (3.5-5.0); Alkaline Phosphatase 79 U/L (39-117); Anion Gap 16 (12-20); Aspartate Amino Transferase 31 U/L (5-37); Bilirubin Total 1.8 mg/dL (0.0-1.0); Blood Urea Nitrogen 22 mg/dL (9-16); Calcium 9.9 mg/dL (8.4-10.2); Carbon Dioxide 27 mmol/L (22-29); Chloride 103 mmol/L (96-108); Cholesterol 169 mg/dL; Estimated Glomerular Filt Rate 60; Glucose Fasting 132 mg/dL (60-99); HDL Cholesterol 62 mg/dL; LDL Cholesterol Calculated 90 mg/dl; Sodium 141 mmol/L (135-145); Total Protein 7.2 g/dL (6.5-8.0); Triglycerides 89 mg/dL
[2022-10-25 09:34] LABS: PSA,Total (Free>4and<10) 2.38 ng/mL (0.00-4.00); Thyroid Stimulating Hormone 1.52 uIU/mL (0.32-4.0); Vitamin D 25-OH Total 29.2 ng/mL (>30)
[2022-10-25 09:42] LABS: Folate 14.8 ng/mL (> or = 4.0); Vitamin B12 396 pg/mL (200-900)
[2022-10-30 08:36] LABS: Vitamin B1 13 nmol/L (8-30)
== END 2022-10-25 07:46 | disposition home or self-care (01) ==
LOC: HO.LAB 07:45
PROVIDERS: PCP Internal Medicine; Visit Provider Internal Medicine
DX: Z12.5 Encounter for screening for malignant neoplasm of prostate (principal); F41.1 Generalized anxiety disorder; I10 Essential (primary) hypertension; E78.00 Pure hypercholesterolemia, unspecified; J45.20 Mild intermittent asthma, uncomplicated; R61 Generalized hyperhidrosis; I83.893 Varicose veins of bilateral lower extremities with other complications
CPT/HCPCS: 36415; 80053; 80061; 82306; 82607; 82746; 84153; 84425; 84443; 85025

== ENCOUNTER → 2022-10-27 14:50 | Outpatient (BNVA) | payer MEDICARE, SELFPAY | PROVIDERS: PCP Internal Medicine; Visit Provider Internal Medicine Endocrinology, Diabetes & Metabolism | DX: R82.5 Elevated urine levels of drugs, medicaments and biological substances (principal) | CPT/HCPCS: 99202 ==

== ENCOUNTER 2022-10-31 10:56 | Outpatient (REF) | payer MEDICARE, SELFPAY ==
[2022-11-06 21:14] LABS: Metanephrine, Free 43 pg/mL (<=57); Normetanephrines, Free 205 pg/mL (<=148); Total Metanephrine, Free 248 pg/mL (<=205)
== END 2022-10-31 10:57 | disposition home or self-care (01) ==
LOC: HO.LAB 10:56
PROVIDERS: PCP Internal Medicine; Visit Provider Internal Medicine Endocrinology, Diabetes & Metabolism
DX: R82.5 Elevated urine levels of drugs, medicaments and biological substances (principal)
CPT/HCPCS: 36415; 83835

== ENCOUNTER 2022-11-09 10:40 | Outpatient (REF) | payer MEDICARE, SELFPAY ==
[2022-11-09 16:03] LABS: Creatinine, 24Hr Urine 1.7 G/Day (1.0-2.0); Total Volume 24 Hour Urine 2925 mL
[2022-11-16 21:33] LABS: Metanephrine, Free 24U 105 mcg/24 h (90-315); Normetanephrine, Free 24U 546 mcg/24 h (122-676); Total Metanephrine, Free 24U 651 mcg/24 h (224-832); Total Volume 24U 2925 mL
== END 2022-11-09 10:41 | disposition home or self-care (01) ==
LOC: HO.LNP 10:40
PROVIDERS: Visit Provider Internal Medicine Endocrinology, Diabetes & Metabolism
DX: R82.5 Elevated urine levels of drugs, medicaments and biological substances (principal)
CPT/HCPCS: 82570; 83835

== ENCOUNTER 2023-01-01 10:34 | Outpatient (REF) | payer MEDICARE, SELFPAY ==
[2023-01-01 14:16] LABS: Appearance Urine Clear; Color Urine Yellow; Glucose Urine UA Negative (Negative); Leukocyte Esterase Urine Negative (Negative); Nitrite Urine Negative (Negative); Urine Blood Negative (Negative); Urine Ketones Negative (Negative); Urine Protein Negative (Neg-Trace)
[2023-01-01 14:19] LABS: Bacteria Urine None Seen (None Seen); Hyaline Casts Urine 0-2 /LPF (0-2); RBC Urine 0-2 /HPF (0-2); Squamous Epithelial Cell Urine 0-2 /HPF (0-2); WBC Urine 0-5 /HPF (0-5)
== END 2023-01-01 10:35 | disposition home or self-care (01) ==
LOC: HO.HMGCLNP 10:34
PROVIDERS: PCP Internal Medicine; Visit Provider Internal Medicine
DX: I10 Essential (primary) hypertension (principal)
CPT/HCPCS: 81001

== ENCOUNTER → 2023-01-11 08:48 | Outpatient (REF) | payer MEDICARE, SELFPAY ==
--- NOTE | 2023-01-11 08:51 | CA_ITS ---
Transthoracic Echocardiogram Patient (Last, First, Middle): Bob Victor K Gender: Male Date of : 1950 Age: 72 Procedure Date: 01/11/2023 Procedure Type: Transthoracic Echocardiogram Location: OP Height: 182.88 cm Weight: 102.06 kg BSA: 2.24 m2 Heart Rate: 75 bpm BP: 125 / 80 mmHg Dye Tank Tender: BAR Referring MD: Ismael Davalos MD Medical Supervisor: Ismael Davalos MD Symptoms: I77.89 - Other specified disorders of arteries and arterioles Study Quality: Technically Difficult ECG Rhythm: Sinus Conclusions: - 1. Normal LV ejection fraction 55-60% with grade 1 diastolic dysfunction 2. Normal cardiac valvular Doppler 3. Normal RV systolic pressure 4. Mildly dilated ascending aorta at 4.2 cm 5. No gross pericardial effusion Findings Left Ventricle Normal left ventricular size, thickness, and systolic function. The visually estimated ejection fraction is between 55-60%. Regional wall motion abnormalities can not be excluded due to suboptimal endocardial definition. Spectral Doppler is indicative of an impaired relaxation filling pattern. E/E prime ratio is <8, consistent with normal filling pressures. Evidence suggests grade I (mild) diastolic dysfunction. Right Ventricle Normal right ventricular cavity size and systolic function. Atria The left atrium is likely dilated. Interatrial shunt cannot be excluded. The right atrium is normal in size. Aortic Valve The aortic valve structure and function is likely normal. There is no aortic valve stenosis. There is no aortic valve regurgitation. Mitral Valve Normal mitral valve structure and function. There is trace mitral valve regurgitation. There is no mitral valve stenosis. Pulmonic Valve The pulmonic valve was not well visualized. Tricuspid Valve Likely normal tricuspid valve structure and function. There is trace tricuspid valve regurgitation. The right ventricular systolic pressure is normal. The right ventricular systolic pressure is 22 mmHg. Normal right atrial pressure. There is no evidence of pulmonary hypertension. Great Vessels The pulmonary artery was not well visualized. There is mild dilatation of the ascending aorta measuring 4.20 cm. Venous The inferior vena cava is normal in size and collapses greater than 50% with inspiration. Pericardium/Pleural There is no evidence of pericardial effusion. Measurements 2D Linear Measurements IVSd: 1.24 0.6-0.9/0.6-1.0 cm LVIDd: 4.80 3.9-5.3/4.2-5.9 cm LVIDd Index: 2.14 2.4-3.2/2.2-3.1 cm/m2 LVIDs: 3.01 2.0-3.6 cm LVPWd: 0.96 0.7-1.1 cm LA Diam: 3.90 2.7-3.8/3.0-4.0 cm LAIDs Index: 1.74 1.5-2.3 cm/m2 LV Mass: 241.09 67-162/88-224 g LV Mass Index: 107.63 43-95/49-115 g/m2 LVOT Diam: 1.90 3.0+(-)1.3 cm 2D Systolic Function EF 4C: 54.50 >55% EF 2C: 58.40 >55% EF BiP: 55.10 >55% Mitral Valve MV Pk E: 0.50 MV PK A: 0.80 MV Decel Time: 320.00 E/A: 0.60 E'Lateral: 5.82 E'Medial: 5.35 E/E' Med: 9.40 E/E' Lat: 8.60 PHT: 94.00 MVA PHT: 2.34 Decel [place]: 1.57 Aortic Valve AoV Pk Avinash: 1.35 AoV Mn Avinash: 0.94 AoV VTI: 0.26 AoV Pk Grad: 7.00 Aov Mn Grad: 4.00 RITA Cont.VTI: 2.61 LVOT LVOT Pk Avinash: 1.39 LVOT Mn Avinash: 0.95 LVOT VTI: 0.24 LVOT Pk Grad: 8.00 LVOT Mn Grad: 4.00 LVOT Diam: 1.90 LVOT Area: 2.84 Diastolic Function MV Pk E: 0.50 MV Pk A: 0.80 E/A: 0.60 E'Medial: 5.35 E/E' Med: 9.40 E' Laterial: 5.82 E/E' Lat: 8.60 Right Ventricle TAPSE (mm): 16.00 TVS' Avinash: 11.60 Tricuspid Valve TR Pk Avinash: 2.18 TR Pk Grad: 19.00 RA Press: 3.00 RVSP: 22.00 Great Vessels Aorta Sinus of Valsalva: 4.10 2.0-3.5 cm Ao Asc: 4.20 2.1-3.4 cm Pulmonary Valve PV Pk Avinash: 1.00 Peak PV Grad: 4.00 Updated in Other Vendor System with Status of Final Ismael Davalos MD electronically signed on 01/11/2023 5:39:07 PM with status of Final
== END ==
LOC: HO.CARD 08:48
PROVIDERS: PCP Internal Medicine; Visit Provider Internal Medicine Cardiovascular Disease
DX: I77.89 Other specified disorders of arteries and arterioles (principal)
CPT/HCPCS: 93306

== ENCOUNTER → 2023-01-26 10:05 | Outpatient (BNVA) | payer MEDICARE, SELFPAY | PROVIDERS: PCP Internal Medicine; Visit Provider Internal Medicine Endocrinology, Diabetes & Metabolism | DX: R82.5 Elevated urine levels of drugs, medicaments and biological substances (principal); R23.2 Flushing | CPT/HCPCS: 99212 ==

== ENCOUNTER 2023-01-31 12:59 | Outpatient (REF) | payer MEDICARE, SELFPAY ==
[2023-01-31 14:12] LABS: Creatinine, mg/dL 73.67
[2023-01-31 15:13] LABS: Creatinine, 24Hr Urine 1.9 G/Day (1.0-2.0); Total Volume 24 Hour Urine 2525 mL
[2023-02-12 02:43] LABS: Hydroindolacetic Acid,5- 5.3 mg/24 h (< OR = 6.0); Total Volume 2525 mL
== END 2023-01-31 13:00 | disposition home or self-care (01) ==
LOC: HO.LNP 12:59
PROVIDERS: Visit Provider Internal Medicine Endocrinology, Diabetes & Metabolism
DX: R23.2 Flushing (principal)
CPT/HCPCS: 81050; 82570; 83497

== ENCOUNTER → 2023-03-22 09:17 | Outpatient (BNVA) | payer MEDICARE, SELFPAY | PROVIDERS: PCP Internal Medicine; Referring Provider Internal Medicine; Visit Provider Internal Medicine Cardiovascular Disease | DX: I77.89 Other specified disorders of arteries and arterioles (principal); I10 Essential (primary) hypertension | CPT/HCPCS: 93005; 99212 ==

== ENCOUNTER 2023-08-10 07:26 | Outpatient (REF) | payer MEDICARE, SELFPAY ==
[2023-08-10 11:22] LABS: MANUAL DIFF FLAG NO
[2023-08-10 11:34] LABS: Basophils Percent Auto 0.6 % (0-2); Eosinophils Absolute Auto 0.1 X10*3/uL (0.0-0.4); Eosinophils Percent Auto 2.6 % (0-4); Hemoglobin 15.3 g/dl (14.0-18.0); Imm Gran Abs Auto 0.01 X10*3/uL (0.00-0.03); Imm Gran Pct Auto 0.2 % (0.0-0.4); Lymphocytes Absolute Auto 1.4 X10*3/uL (1.2-4.9); Lymphocytes Percent Auto 27.9 % (20-40); Mean Corpuscular Hemoglobin 32.4 pg (27.0-33.0); Mean Corpuscular Volume 95.3 fL (80.0-98.0); Mean Platelet Volume 9.8 fL (9.4-12.4); Monocytes Absolute Auto 0.6 X10*3/uL (0.1-1.2); Monocytes Percent Auto 12.6 % (2-11); Neutrophils Absolute Auto 2.8 x10*3/uL (2.0-8.3); Neutrophils Percent Auto 56.1 % (45-73); Platelet Count 265 X10*3/uL (160-400); Red Blood Count 4.72 X10*6/uL (4.60-5.80); Red Cell Distribution Width 12.9 % (11.0-16.0); White Blood Count 4.9 X10*3/uL (4.8-10.8)
[2023-08-10 12:08] LABS: Alanine Aminotransferase 22 U/L (0-40); Albumin Level 4.6 g/dL (3.5-5.0); Alkaline Phosphatase 75 U/L (39-117); Anion Gap 15 (12-20); Aspartate Amino Transferase 27 U/L (5-37); Bilirubin Total 1.9 mg/dL (0.0-1.0); Blood Urea Nitrogen 20 mg/dL (9-16); Calcium 9.7 mg/dL (8.4-10.2); Carbon Dioxide 28 mmol/L (22-29); Chloride 102 mmol/L (96-108); Cholesterol 218 mg/dL (<200); Estimated Glomerular Filt Rate > 60; Glucose Fasting 123 mg/dL (60-99); HDL Cholesterol 66 mg/dL (>40); LDL Cholesterol Calculated 137 mg/dL (<100); Potassium 4.5 mmol/L (3.3-5.1); Sodium 140 mmol/L (135-145); Triglycerides 78 mg/dL (<150)
[2023-08-10 13:32] LABS: Appearance Urine Clear; Color Urine Yellow; Glucose Urine UA Negative (Negative); Leukocyte Esterase Urine Negative (Negative); Nitrite Urine Negative (Negative); PH 6.5 (5.0-9.0); Specific Gravity - Urine 1.015 (1.005-1.025); Urine Blood Negative (Negative); Urine Ketones Negative (Negative); Urine Protein Negative (Neg-Trace)
[2023-08-10 13:37] LABS: Bacteria Urine None Seen (None Seen); Hyaline Casts Urine 0-2 /LPF (0-2); RBC Urine 0-2 /HPF (0-2); Squamous Epithelial Cell Urine 0-2 /HPF (0-2); WBC Urine 0-5 /HPF (0-5)
== END 2023-08-10 07:27 | disposition home or self-care (01) ==
LOC: HO.HMGCLDS 07:26
PROVIDERS: PCP Internal Medicine; Visit Provider Internal Medicine
DX: R23.2 Flushing (principal); I10 Essential (primary) hypertension; E78.00 Pure hypercholesterolemia, unspecified; J45.20 Mild intermittent asthma, uncomplicated; R35.0 Frequency of micturition; F41.1 Generalized anxiety disorder; I83.893 Varicose veins of bilateral lower extremities with other complications
CPT/HCPCS: 36415; 80053; 80061; 81001; 84443; 85025

== ENCOUNTER → 2024-02-27 08:42 | Outpatient (REF) | payer MEDICARE, SELFPAY ==
--- NOTE | 2024-02-27 08:44 | CA_ITS ---
Transthoracic Echocardiogram Patient (Last, First, Middle): Bob Victor K Gender: Male Date of : 1950 Age: 74 Procedure Date: 02/27/2024 Procedure Type: Transthoracic Echocardiogram Location: OP Height: 182.88 cm Weight: 108.86 kg BSA: 2.30 m2 Heart Rate: bpm BP: 130 / 78 mmHg Unclaimed Property Manager: TO Referring MD: Ismael Davalos MD Symptoms: I77.89 - Other specified disorders of arteries and arterioles Study Quality: Fair/contrast Conclusions: - The left ventricular systolic function is normal. The calculated ejection fraction is 59% by biplane method. - There is mild calcification of the aortic valve. - No obvious valvular pathology seen on this study. - There is mild dilatation of the ascending aorta measuring 4.30 cm and mild dilatation of the aortic arch measuring 4.00 cm. Findings Procedure Information Contrast agent, definity, is being given per protocol without apparent complications. Left Ventricle Normal left ventricular cavity size. There is normal left ventricular wall thickness. The left ventricular systolic function is normal. The calculated ejection fraction is 59% by biplane method. There is no evidence of regional wall motion abnormalities. Evidence suggests grade I (mild) diastolic dysfunction. Right Ventricle Mildly increased right ventricular cavity size. There is normal right ventricular systolic function. Atria Both atria are normal in size. Aortic Valve There is mild calcification of the aortic valve. There is no aortic valve stenosis. There is no aortic valve regurgitation. Mitral Valve The mitral valve appears normal. There is no mitral valve regurgitation. There is no mitral valve stenosis. Pulmonic Valve The pulmonic valve is likely normal. Tricuspid Valve Normal tricuspid valve structure. There is mild tricuspid valve regurgitation. There is no evidence of pulmonary hypertension. Great Vessels There is mild dilatation of the ascending aorta measuring 4.30 cm and mild dilatation of the aortic arch measuring 4.00 cm. Venous The inferior vena cava was not well visualized. Pericardium/Pleural There is no evidence of pericardial effusion. Prior Study Comparison Changes noted compared to prior study dated: 01/11/2023. slight increase in ascending aortic size. Recommendations, Care & Conclusions No obvious valvular pathology seen on this study. Measurements 2D Linear Measurements IVSd: 1.01 0.6-0.9/0.6-1.0 cm LVIDd: 5.12 3.9-5.3/4.2-5.9 cm LVIDd Index: 2.23 2.4-3.2/2.2-3.1 cm/m2 LVIDs: 3.47 2.0-3.6 cm LVPWd: 0.97 0.7-1.1 cm LA Diam: 3.80 2.7-3.8/3.0-4.0 cm LAIDs Index: 1.65 1.5-2.3 cm/m2 LV Mass: 232.01 67-162/88-224 g LV Mass Index: 100.87 43-95/49-115 g/m2 LVOT Diam: 2.40 3.0+(-)1.3 cm 2D Systolic Function EF 4C: 56.10 >55% EF 2C: 62.40 >55% EF BiP: 58.70 >55% Mitral Valve MV VTI: 0.20 MV Pk Avinash: 0.95 MV Mn Avinash: 0.49 MV Pk Grad: 4.00 MV Mn Grad: 1.00 MV Pk E: 0.42 MV PK A: 0.61 MV Decel Time: 248.00 E/A: 0.70 E'Lateral: 5.44 E'Medial: 3.59 E/E' Med: 11.80 E/E' Lat: 7.80 PHT: 73.00 MVA PHT: 3.01 MVA Continuity: 5.66 Decel [place]: 1.71 Aortic Valve AoV Pk Avinash: 1.85 AoV Mn Avinash: 1.28 AoV VTI: 0.35 AoV Pk Grad: 14.00 Aov Mn Grad: 7.00 RITA Cont.VTI: 3.30 LVOT LVOT Pk Avinash: 1.30 LVOT Mn Avinash: 0.87 LVOT VTI: 0.25 LVOT Pk Grad: 7.00 LVOT Mn Grad: 3.00 LVOT Diam: 2.40 LVOT Area: 4.52 Diastolic Function MV Pk E: 0.42 MV Pk A: 0.61 E/A: 0.70 E'Medial: 3.59 E/E' Med: 11.80 E' Laterial: 5.44 E/E' Lat: 7.80 Right Ventricle TAPSE (mm): 21.40 TVS' Avinahs: 10.90 Tricuspid Valve TR Pk Avinash: 1.93 TR Pk Grad: 15.00 Great Vessels Aorta Sinus of Valsalva: 3.93 2.0-3.5 cm Ao Asc: 4.30 2.1-3.4 cm Ao Arch: 4.00 Updated in Other Vendor System with Status of Final Jase Yates MD electronically signed on 02/29/2024 10:11:07 AM with status of Final
== END ==
LOC: HO.CARD 08:42
PROVIDERS: PCP Internal Medicine; Visit Provider Internal Medicine Cardiovascular Disease
DX: I77.89 Other specified disorders of arteries and arterioles (principal)
CPT/HCPCS: 93306; Q9957

== ENCOUNTER → 2024-02-27 08:44 | Outpatient (BNV) | payer MEDICARE, SELFPAY | PROVIDERS: PCP Internal Medicine; Visit Provider Internal Medicine | DX: I36.1 Nonrheumatic tricuspid (valve) insufficiency (principal); I35.8 Other nonrheumatic aortic valve disorders | CPT/HCPCS: 93306 ==

== ENCOUNTER 2024-03-18 09:44 | Outpatient (AMB) | payer MEDICARE, SELFPAY ==
--- NOTE | 2024-03-18 09:44 | A.OFFVIS_ITS ---
Vital Signs 03/18/24 09:45 Height 6 ft Weight 246 lb 14.684 oz BMI 33.5 BP 120/78 Blood Pressure Location Lt brachial Position Sitting Pulse 84 Intake Visit Reasons: 1 year f/up after echo Intake Note: 1 year follow-up after echo with ekg c/o some soreness in chest at times Community Outreach Coordinator Required: No Allergies environmental Allergy (Unknown, Uncoded 01/26/23 10:15) Unknown Medication List - Last Reconciled 03/18/24 by Ismael Davalos MD albuterol sulfate 90 mcg/actuation (ProAir HFA) 2 puffs inhalation Q6H PRN allopurinol 300 mg PO DAILY aspirin (Adult Low Dose Aspirin) 81 mg PO DAILY atorvastatin 80 mg PO DAILY coenzyme Q10 (Ultra CoQ10) 75 mg PO DAILY elderberry fruit and flower 460-115 mg caps PO lisinopril 10 mg PO DAILY lorazepam 1 mg PO DAILY PRN magnesium 200 mg PO DAILY milk thistle 150 mg PO BID PRN multivitamin 1 tab PO QAM omega 0-aeb-wna-fish oil 1,200 (144-216) mg (Fish Oil) caps PO Saccharomyces boulardii (Daily Probiotic (S. boulardii)) 250 mg PO BID HPI Comments Details: Bob comes for follow-up. He had echocardiogram recently which showed stable ascending aortic size with normal LV ejection fraction without any valvular abnormality with a Dopplers no significant diastolic dysfunction. Complains of exertional shortness of breath slightly. However he still exercises and bikes and walks for 2 miles every day. Denies any prolonged palpitations irregular heartbeat. Also complains of mild ache in the lower retrosternal area usually after eating and mostly at rest. Denies any exertional chest discomfort. No prolonged palpitations irregular heartbeat. No lightheadedness, syncope. [facility] Medical History Flushing Elevated urine levels of catecholamines Symptomatic varicose veins of both lower extremities Hyperlipidemia HTN (hypertension) CVA (cerebral vascular accident) Asthma Anxiety Surgical History No history of previous surgery Family History Mother No known health problems Father Aneurysm High blood pressure Social History Alcohol intake: current Alcohol intake frequency: 0-2 drinks per day Alcohol type: wine Patient Tobacco Use Status: Former Tobacco user Review of Systems Const Denies chills, Denies fatigue, Denies fever(s), Denies frequent falls, Denies weakness, Denies weight gain and Denies weight loss ENT Denies dizziness Card Denies chest pain, Denies leg edema, Denies lightheadedness, Denies palpitations, Denies dyspnea, Denies dyspnea on exertion, Denies orthopnea and Denies other (loss of consciousness) Resp Denies cough, Denies dyspnea and Denies dyspnea on exertion GI Denies hematochezia and Denies change in stool character Musc Denies abnormal gait, Denies muscle weakness, Denies numbness, Denies radiating pain into limb and Denies tingling Neuro Denies Abnormal speech present, Denies abnormal gait, Denies dizziness, Denies frequent falls, Denies numbness, Denies tingling and Denies weakness Endo Denies fatigue and Denies palpitations Physical Exam Vital Signs: Last Vital Signs Pulse 84 03/18/24 09:45 BP 120/78 03/18/24 09:45 BMI result Body Mass Index 33.5 Const General: cooperative, comfortable, no acute distress, alert and awake Nutritional Appearance: overweight Orientation/consciousness: patient oriented x3 Limitations: no limitations Neck Neck: Yes trachea midline, Yes supple and Yes no JVD Chest Chest palpation & inspection: normal inspection of the chest Resp Effort & Inspection: normal respiratory effort Auscultation: clear to auscultation bilaterally Cardio Jugular venous distension: no JVD Palpation: normal PMI Rate: regular rate Rhythm: regular rhythm Heart sounds: S1 normal heart sound present, S2 normal heart sound present, no click, no gallops, no murmurs and no rubs GI Auscultation: normal bowel sounds Skin General skin exam: no rashes or lesions noted Neuro General: patient oriented x3 and no focal motor deficits Speech: No Abnormal speech present Extrem General: Yes no clubbing, cyanosis or edema and Yes other (Bilateral significant lower extremity varicosities) Psych Appearance: grossly normal Office Procedures EKG Details: EKG shows normal sinus rhythm with right bundle and left anterior fascicular block consistent with bifascicular block, unchanged 37800-[id number], Complete Assessment & Plan Assessment & Plan (1) Enlarged thoracic aorta: Code(s): I77.89 - Other specified disorders of arteries and arterioles Category: Medical Plan: Mildly enlarged thoracic aorta which has remained stable. No surgical intervention required. Continue aggressive blood pressure control, see below. Can you high-intensity statin therapy with target goal LDL less than 70 mg/dL given his mild carotid disease. Continue low-dose aspirin therapy. Advised to avoid sudden strenuous isometric exercise. Follow-up echocardiogram in 1 year's time. (2) HTN (hypertension): Code(s): I10 - Essential (primary) hypertension Category: Medical Plan: Hypertension which is currently well optimized advised to monitor blood pressure at home maintain a log. Goal blood pressure less than 130/84. Continue current lisinopril therapy. Encouraged low-salt diet. Encouraged to continue to participate in physical activity as tolerated. (3) Bifascicular block: Code(s): I45.2 - Bifascicular block Category: Medical Plan: Bifascicular block which is stable and requires no intervention. Will continue follow up by annual EKG. No indication for pacing therapy. Will follow up in the clinic in 1 year's time, sooner p.r.n.. Thank you for allowing me to partake in his care Coding Level of Care Code Est Pt Level 4 (23290) Diagnoses Enlarged thoracic aorta I77.89 HTN (hypertension) I10 Bifascicular block I45.2 CPT Codes EKG - CPT: 30145-[id number], Complete ([id number])
[2024-03-18 09:45] VITALS: BP 120/78; PULSE 84; BMI 33.5
== END 2024-03-18 10:05 | disposition home or self-care (01) ==
PROVIDERS: PCP Internal Medicine; Visit Provider Internal Medicine Cardiovascular Disease
DX: I77.89 Other specified disorders of arteries and arterioles (principal); I10 Essential (primary) hypertension; I45.2 Bifascicular block
CPT/HCPCS: 93010; 99214

== ENCOUNTER → 2024-03-18 09:44 | Outpatient (BNVA) | payer MEDICARE, SELFPAY | PROVIDERS: PCP Internal Medicine; Visit Provider Internal Medicine Cardiovascular Disease | DX: I77.89 Other specified disorders of arteries and arterioles (principal); I10 Essential (primary) hypertension; I45.2 Bifascicular block; Z79.82 Long term (current) use of aspirin; Z79.899 Other long term (current) drug therapy | CPT/HCPCS: 93005; 99212 ==

== ENCOUNTER 2024-04-16 07:43 | Outpatient (REF) | payer MEDICARE, SELFPAY ==
[2024-04-16 10:19] LABS: MANUAL DIFF FLAG NO
[2024-04-16 10:25] LABS: Basophils Percent Auto 0.8 % (0-2); Eosinophils Absolute Auto 0.2 X10*3/uL (0.0-0.4); Eosinophils Percent Auto 3.2 % (0-4); Hemoglobin 15.4 g/dl (14.0-18.0); Imm Gran Abs Auto 0.01 X10*3/uL (0.00-0.03); Imm Gran Pct Auto 0.2 % (0.0-0.4); Lymphocytes Absolute Auto 1.2 X10*3/uL (1.2-4.9); Lymphocytes Percent Auto 24.6 % (20-40); Mean Corpuscular HGB Conc 34.2 g/dl (31.0-36.0); Mean Corpuscular Hemoglobin 32.4 pg (27.0-33.0); Mean Corpuscular Volume 94.7 fL (80.0-98.0); Mean Platelet Volume 9.8 fL (9.4-12.4); Monocytes Absolute Auto 0.6 X10*3/uL (0.1-1.2); Monocytes Percent Auto 12.4 % (2-11); Neutrophils Absolute Auto 2.9 x10*3/uL (2.0-8.3); Neutrophils Percent Auto 58.8 % (45-73); Platelet Count 251 X10*3/uL (160-400); Red Blood Count 4.75 X10*6/uL (4.60-5.80); Red Cell Distribution Width 12.8 % (11.0-16.0)
[2024-04-16 10:58] LABS: Appearance Urine Clear; Color Urine Yellow; Glucose Urine UA Negative (Negative); Leukocyte Esterase Urine Negative (Negative); Nitrite Urine Negative (Negative); PH 7.5 (5.0-9.0); Specific Gravity - Urine 1.015 (1.005-1.025); Urine Blood Negative (Negative); Urine Ketones Negative (Negative); Urine Protein Negative (Neg-Trace)
[2024-04-16 11:00] LABS: Alanine Aminotransferase 27 U/L (0-40); Albumin Level 4.3 g/dL (3.5-5.0); Alkaline Phosphatase 79 U/L (39-117); Anion Gap 12 (12-20); Aspartate Amino Transferase 31 U/L (5-37); Bilirubin Total 1.6 mg/dL (0.0-1.0); Blood Urea Nitrogen 15 mg/dL (9-16); Calcium 9.7 mg/dL (8.4-10.2); Carbon Dioxide 26 mmol/L (22-29); Chloride 104 mmol/L (96-108); Cholesterol 173 mg/dL (<200); Estimated Glomerular Filt Rate > 60; Glucose Fasting 117 mg/dL (60-99); HDL Cholesterol 63 mg/dL (>40); LDL Cholesterol Calculated 90 mg/dL (<100); Sodium 138 mmol/L (135-145); Total Protein 7.5 g/dL (6.5-8.0); Triglycerides 100 mg/dL (<150)
[2024-04-16 11:01] LABS: Thyroid Stimulating Hormone 1.67 uIU/mL (0.32-4.0)
[2024-04-16 11:57] LABS: Bacteria Urine None Seen (None Seen); Hyaline Casts Urine 0-2 /LPF (0-2); RBC Urine 0-2 /HPF (0-2); Squamous Epithelial Cell Urine 0-2 /HPF (0-2); WBC Urine 0-5 /HPF (0-5)
[2024-04-16 14:20] LABS: PSA,Total (Free>4and<10) 3.21 ng/mL (0.00-4.00)
== END 2024-04-16 07:44 | disposition home or self-care (01) ==
LOC: HO.HMGCLDS 07:43
PROVIDERS: PCP Internal Medicine; Visit Provider Internal Medicine
DX: F10.90 Alcohol use, unspecified, uncomplicated (principal); I10 Essential (primary) hypertension; E78.00 Pure hypercholesterolemia, unspecified; J45.20 Mild intermittent asthma, uncomplicated; J41.1 Mucopurulent chronic bronchitis; R35.1 Nocturia; R35.0 Frequency of micturition; I83.893 Varicose veins of bilateral lower extremities with other complications; Z12.5 Encounter for screening for malignant neoplasm of prostate
CPT/HCPCS: 36415; 80053; 80061; 81001; 84153; 84443; 85025

== ENCOUNTER 2024-09-26 10:22 | Outpatient (REF) | payer MEDICARE, SELFPAY | END 2024-09-26 10:23 | disposition home or self-care (01) | LOC: HO.HMGCX 10:22 | PROVIDERS: PCP Internal Medicine; Visit Provider Internal Medicine | DX: R10.31 Right lower quadrant pain (principal) | CPT/HCPCS: 76700 ==

== ENCOUNTER → 2024-09-26 10:24 | Outpatient (BNV) | payer MEDICARE, SELFPAY | PROVIDERS: PCP Internal Medicine; Visit Provider Radiology Diagnostic Radiology | DX: R10.31 Right lower quadrant pain (principal) | CPT/HCPCS: 76700 ==

== ENCOUNTER 2024-11-10 09:33 | Outpatient (AMB) | payer MEDICARE, SELFPAY ==
[2024-11-10 09:46] VITALS: BP 152/84; PULSE 88; TEMP 36.2; O2SAT 95; BMI 35.2
--- NOTE | 2024-11-10 09:46 | MHC.PC.OV ---
Vital Signs 11/10/24 09:46 Height 5 ft 11.5 in Weight 256 lb BMI 35.2 BP 152/84 H Blood Pressure Location Rt brachial Pulse 88 Pulse Source Pulse Oximeter Temp 97.1 F Pulse Oximetry (%) 95 Intake Visit Reasons: follow up Allergies environmental Allergy (Unknown, Uncoded 01/26/23 10:15) Unknown PFSH Medical History Flushing Elevated urine levels of catecholamines Symptomatic varicose veins of both lower extremities Hyperlipidemia HTN (hypertension) CVA (cerebral vascular accident) Asthma Anxiety Surgical History No history of previous surgery Family History Mother No known health problems Father Aneurysm High blood pressure Social History Alcohol intake: current Alcohol intake frequency: 0-2 drinks per day Alcohol type: wine Patient Tobacco Use Status: Former Tobacco user Physical exam (Primary Care) Vital Signs: Last Vital Signs Temp 97.1 F 11/10/24 09:46 Pulse 88 11/10/24 09:46 BP 152/84 H 11/10/24 09:46 Pulse Ox 95 11/10/24 09:46 BMI result Body Mass Index 35.2 Tobacco/Smoking Status: Tobacco use Status Patient Tobacco Use Status Former Tobacco user 11/10/24 09:48 Coding Level of Care Code New Pt Level 4 (38951) Complex EM visit Add On G2211 Diagnoses HTN (hypertension) I10 Enlarged thoracic aorta I77.89 Assessment & Plan Assessment & Plan (1) HTN (hypertension): Code(s): I10 - Essential (primary) hypertension Category: Medical Plan: BP is in range. Continue medications at same dosage. (2) Enlarged thoracic aorta: Code(s): I77.89 - Other specified disorders of arteries and arterioles Category: Medical Plan: History of Present Illness The patient is a 74-year-old male presenting with recurrent flushing, nasal congestion, and other concerns. The flushing episodes have been experienced for quite a while but have recently increased in frequency, particularly occurring in the morning and sometimes after eating. The patient denies having a visible temperature during these episodes, and they do not appear to be evident to others. Additionally, he has been experiencing nasal congestion and phlegm for the last 3 to 4 weeks. He was previously evaluated by Dr. Olmos, where tests showed elevated metanephrine levels; however, a 24-hour urine test by an shed workers supervisor ruled out any disease-related cause for the flushing. The patient has a history of gastroesophageal reflux disease for which he takes omeprazole. Despite initial concern about long-term use, he was reassured it can be taken continuously. He also reports frequent nighttime urination, up to 5-6 times, without difficulty starting urination but occasionally notices dribbling. The patient has an enlarged aorta managed by a manager social responsibility, and he takes atorvastatin and lisinopril to manage hyperlipidemia and hypertension. Despite this, he noted that his blood pressure was slightly elevated today but is usually controlled. Social History Review of Systems - Ear/Nose/Throat: Reports tinnitus - Respiratory: Reports shortness of breath - Gastrointestinal: Reports occasional acid reflux controlled with medication - Genitourinary: Reports frequent nighttime urination - Neurological: Denies difficulty while driving at night, slight prescription for glasses - Psychological: Reports increased anxiety Physical Exam General: Cooperative and healthy appearing Nutritional Appearance: Well nourished Orientation/consciousness: Patient oriented x3 Limitations: No limitations Head: Normal to inspection General: Appearance normal, both eyes and all related structures Neck: Normal visual inspection Chest: Normal palpation of entire chest wall Respiratory: Normal respiratory effort Neurology: Patient oriented x3 Results - Labs: Previous tests indicated elevated metanephrine levels - Tests and diagnostics: 24-hour urine test by shed workers supervisor was normal, prior abdominal ultrasound noted Plan - Recommend avoiding red wine and cheese for one month to evaluate impact on flushing episodes - Order blood work to monitor current health status - Continue atorvastatin and lisinopril for hypertension and hypercholesterolemia - Review prostate health given urinary symptoms; possible follow-up if symptoms persist - Encourage re-initiation of regular walking once the weather permits Patient was informed and verbally consented to the use of an ambient scribe for clinic note documentation during this visit. Discussion Notes I discussed with the patient the likely lac-xhbi-xbglemgnzxj nature of his flushing symptoms and potential dietary triggers such as red wine. Avoiding red wine and cheese was recommended to determine any improvement in symptoms. I reassured the patient of the safety of continuous omeprazole use for GERD and discussed the continuation of current medications for blood pressure and cholesterol management. We decided on ordering routine blood tests to ensure overall well-being. I addressed the frequent urination issue, mentioning that prostate health would be assessed during the exam. We also touched on his anxiety and past experiences with antidepressants, with no current changes advised to his lorazepam usage. Patient education included a detailed plan to reassess in one month. Patient Instructions - Avoid red wine and cheese for one month. - Maintain regular medication regimen as previously prescribed. - Schedule blood work after fasting. - Monitor and report any changes in flushing frequency or severity. - Attempt to reintroduce walking or other physical activities as feasible. - Follow up in one month for reassessment. - Continue usual care, and seek medical attention if symptoms worsen. Plan Patient has a scheduled appt for his annual Echocardiogram
== END 2024-11-10 10:12 | disposition home or self-care (01) ==
LOC: HO.HMCSH 09:33
PROVIDERS: PCP Internal Medicine; Visit Provider Internal Medicine
DX: I10 Essential (primary) hypertension (principal); I77.89 Other specified disorders of arteries and arterioles

== ENCOUNTER → 2024-11-10 09:33 | Outpatient (BNVA) | payer MEDICARE, SELFPAY | PROVIDERS: PCP Internal Medicine; Visit Provider Internal Medicine | DX: I10 Essential (primary) hypertension (principal); I77.89 Other specified disorders of arteries and arterioles | CPT/HCPCS: 99202 ==

== ENCOUNTER 2024-11-19 07:56 | Outpatient (REF) | payer MEDICARE, SELFPAY ==
--- OUTSIDE RECORDS SUMMARY | 2024-11-19 08:03 | XMS_ITS ---
Author Organization Berto Olmos DO [facility] Address [address], [place] [phone] Care Team Providers Care Cook Sauce Name Role Phone Berto Olmos Primary Care Provider REASON FOR VISIT Refills MEDICATIONS Medication SIG (Take, Route, Fr equency, Duration) Notes Start Date End Date Status LORazepam 1 MG 1 tablet Orally Once a day for 30 days 07/07/2024 Active Encounters Encounter Location Date Provider Diagnosis [facility] DO, [facility] [address], [place] [phone] 07/07/2024 Berto Olmos Generalized anxiety disorder F41.1 ASSESSMENTS Encounter Date Diagnosis Assessment Notes Treatment Notes Treatment Clinical Notes 07/07/2024 Generalized anxiety disorder (ICD-10 - F41.1) PLAN OF TREATMENT Medication Medication Name Sig Start Date Stop Date Notes LORazepam 1 MG 1 tablet Orally Once a day for 30 days 03/2024 Next Appt Details Provider Name:Berto beltran, 11/19/2024 10:45:00 AM, [address] [place], [place], [phone],
--- OUTSIDE RECORDS SUMMARY | 2024-11-19 08:03 | XMS_ITS ---
Author Organization Berto Olmos DO, FACP Address [address] [place], [place] [id number] Care Team Providers Care Communications Operator Name Role Phone Berto Olmos Primary Care Provider REASON FOR VISIT 2 month f/u Encounters Encounter Location Date Provider Diagnosis Berto Olmos DO, FACP [address] [place] [phone] 11/19/2024 Berto Olmos PLAN OF TREATMENT Next Appt Details Provider Name:Berto beltran, 11/19/2024 10:45:00 AM, [address] [place], [place], [phone],
--- OUTSIDE RECORDS SUMMARY | 2024-11-19 08:03 | XMS_ITS ---
Author Organization Berto Olmos DO, FACP Address [address] [place], [place] [id number] Care Team Providers Care Retirement Sales Consultant Name Role Phone Berto Olmos Primary Care Provider ALLERGIES Allergen (clinical drug ingredient) Drug/Non Drug Allergy documented on EMR Reaction Allergy Type Onset Date Status mirtazapine Remeron twitching Drug Allergy Activ e REASON FOR VISIT 6 month f/u, Follow up hypertension, hypercholesterolemia MEDICATIONS Medication SIG (Take, Route, Frequency, Duration) Notes Start Date End Date Status Allopurinol 300 MG 1 tablet Orally Once a day Active ProAir HFA 108 (90 Base) MCG/ACT 2 puffs as needed Inhalation 4 times a day 10/24/2011 Active Multivitamins 1 tablet Orally Once a day Active Probiotic 250 MG 1 capsule Orally Onc e a day Active LORazepam 1 MG 1 tablet Orally Once a day 07/07/2024 Active Fish Oil 645 MG 1 capsule Orally Thr ee times a day Active Coenzyme Q10 100 MG 1 capsule Orally Onc e a day Active Omeprazole 20 MG 1 capsule 1/2 to 1 h our before morning meal Orally Once a day Active Atorvastatin Calcium 80 MG 1 tablet Oral ly Once a day Active Aspirin EC 81 MG 1 tablet Orally Once a day Active Lisinopril 10 MG 1 tablet Orally Once a day Active Diprolene AF 0.05 % 1 application to aff ected area as needed Externally Once a day Active SOCIAL HISTORY Tobacco Use: Social History Observation Description Date Details (start date - stop date) Former Smoker NA - NA Sex Assigned At : Social History Observation Description Sex Assigned At Unknown Tobacco Use/Smoking Question Answer Notes Patient is a former smoker How long has it been since y ou last smoked? > 10 years Additional Findings: Tobacco Non-User Fo rmer smoker, currently using no form of tobacco VITAL SIGNS BMI 33.70 kg/m2 09/17/2024 Blood pressure systolic 134 mm Hg 09/17/20 24 Blood pressure diastolic 72 mm Hg 024 Height 72.50 in 09/17/2024 Weight 252 lbs 09/17/2024 Encounters Encounter Location Date Provider Diagnosis Berto Olmos DO, [address] [id number] 09/17/2024 Berto Olmos Essential hypertensi on I10 ; Hypercholesterolemia E78.00 ; Right lower quadrant abdominal pain R10.31 ; Generalized anxiety disorder F41.1 ; Mild intermittent asthma without complication J45.20 and Varicose veins of bilateral lower extremities with other complications I83.893 ASSESSMENTS Encounter Date Diagnosis Assessment Notes Treatment Notes Treatment Clinical Notes 09/17/2024 Essential hypertensi on (ICD-10 - I10) 09/17/2024 Hypercholesterolemia (ICD-10 - E78.00) 09/17/2024 Right lower quadrant abdominal pain (ICD-10 - R10.31) 09/17/2024 Generalized anxiety disorder (ICD-10 - F41.1) 09/17/2024 Mild intermittent as thma without complication (ICD-10 - J45.20) 09/17/2024 Varicose veins of bilateral lower extremities with other complications (ICD-10 - I83.893) PLAN OF TREATMENT Medication Medication Name Sig Start Date Stop Date Notes Allopurinol 300 MG 1 tablet Orally Once a day ProAir HFA 108 (90 Base) MCG/ACT 2 puffs as needed Inhalation 4 times a day 10/24/2011 Multivitamins 1 tablet Orally Once a day Probiotic 250 MG 1 capsule Orally Once a day LORazepam 1 MG 1 tablet Orally Once a day 07/07/2024 Fish Oil 645 MG 1 capsule Orally [address] ee times a day Coenzyme Q10 100 MG 1 capsule Orally Once a day Omeprazole 20 MG 1 capsule 1/2 to 1 h our before morning meal Orally Once a day Atorvastatin Calcium 80 MG 1 tablet Orally Once a day Aspirin EC 81 MG 1 tablet Orally Once a day Lisinopril 10 MG 1 tablet Orally Once a day Diprolene AF 0.05 % 1 application to aff ected area as needed Externally Once a day Pending Test Test Name Order Date US abdomen complete 09/17/2024 Next Appt Details Follow Up: 2 Months, Reason: follow up visit Provider Name:Berto Stephens Anjel beltran, 11/19/2024 10:45:00 AM, [address] [place] [address], [place], [place], [phone], Progress Notes * Examination Category Sub-Category Detail Notes General Examination GENERAL APPEARANCE: in no ac adolfo distress, well developed, well nourished HEAD: normocephalic, atrau matic HEART: no murmurs, regular rate and rhythm, S1, S2 normal LUNGS: clear to auscultatio n bilaterally ABDOMEN: normal, bowel sounds present, soft, nontender, nondistended SKIN: warm and dry EXTREMITIES: no edema PSYCH: alert, oriented, cog nitive function intact
[2024-11-19 10:16] LABS: Hematocrit 45.7 % (42.0-52.0); Hemoglobin 15.7 g/dl (14.0-18.0); Mean Corpuscular HGB Conc 34.4 g/dl (31.0-36.0); Mean Corpuscular Hemoglobin 32.7 pg (27.0-33.0); Mean Corpuscular Volume 95.2 fL (80.0-98.0); Mean Platelet Volume 9.5 fL (9.4-12.4); Platelet Count 253 X10*3/uL (160-400); White Blood Count 4.8 X10*3/uL (4.8-10.8)
[2024-11-19 10:44] LABS: Alanine Aminotransferase 27 U/L (0-40); Albumin Level 4.5 g/dL (3.5-5.0); Alkaline Phosphatase 71 U/L (39-117); Anion Gap 12 (12-20); Aspartate Amino Transferase 35 U/L (5-37); Bilirubin Direct 0.3 mg/dL (0.0-0.5); Bilirubin Total 1.4 mg/dL (0.0-1.0); Blood Urea Nitrogen 17 mg/dL (9-16); Calcium 10.1 mg/dL (8.4-10.2); Carbon Dioxide 26 mmol/L (22-29); Chloride 104 mmol/L (96-108); Cholesterol 169 mg/dL (<200); Estimated Glomerular Filt Rate > 60; Glucose Random 112 mg/dL (60-115); HDL Cholesterol 63 mg/dL (>40); LDL Cholesterol Calculated 92 mg/dL (<100); Potassium 4.4 mmol/L (3.3-5.1); Sodium 138 mmol/L (135-145); Total Protein 8.1 g/dL (6.5-8.0); Triglycerides 72 mg/dL (<150)
[2024-11-19 10:49] LABS: Thyroid Stimulating Hormone 1.59 uIU/mL (0.32-4.0)
[2024-11-19 11:03] LABS: Erythrocyte Sedimentation Rate 2 MM/HR (0-15)
== END 2024-11-19 07:57 | disposition home or self-care (01) ==
LOC: HO.HMGCLDS 07:56
PROVIDERS: PCP Internal Medicine; Visit Provider Internal Medicine
DX: I10 Essential (primary) hypertension (principal); I77.89 Other specified disorders of arteries and arterioles
CPT/HCPCS: 36415; 80048; 80061; 80076; 84443; 85027; 85652

== ENCOUNTER 2024-12-03 08:58 | Outpatient (AMB) | payer MEDICARE, SELFPAY ==
--- NOTE | 2024-12-03 08:58 | A.OFFPC_ITS ---
Vital Signs 12/03/24 09:06 Height 5 ft 11.5 in Weight 253 lb BMI 34.8 BP 162/82 H Blood Pressure Location Rt brachial Pulse 89 Pulse Source Pulse Oximeter Temp 97.2 F Pulse Oximetry (%) 96 Intake Visit Reasons: f/u Intake Note: no other issues Allergies No Known Allergies Allergy (Verified 12/03/24 09:24) Medication List - Last Reconciled 12/03/24 by Abhishek Schulz MD albuterol sulfate 90 mcg/actuation (ProAir HFA) 2 puffs inhalation Q6H PRN allopurinol 300 mg PO DAILY aspirin (Adult Low Dose Aspirin) 81 mg PO DAILY atorvastatin 80 mg PO DAILY betamethasone, augmented 0.05 % 1 appl topical DAILY coenzyme Q10 (Ultra CoQ10) 75 mg PO DAILY elderberry fruit and flower 460-115 mg caps PO lisinopril 20 mg PO DAILY lorazepam 1 mg PO Q6-8H magnesium 200 mg PO DAILY milk thistle 150 mg PO BID PRN multivitamin 1 tab PO QAM omega 1-qfs-tmz-fish oil 1,200 (144-216) mg (Fish Oil) caps PO omeprazole 20 mg PO DAILY Saccharomyces boulardii (Daily Probiotic (S. boulardii)) 250 mg PO BID PFSH Medical History Flushing Elevated urine levels of catecholamines Symptomatic varicose veins of both lower extremities Hyperlipidemia HTN (hypertension) CVA (cerebral vascular accident) Asthma Anxiety Surgical History No history of previous surgery Family History Mother No known health problems Father Aneurysm High blood pressure Social History Alcohol intake: current Alcohol intake frequency: 0-2 drinks per day Alcohol type: wine Patient Tobacco Use Status: Former Tobacco user Physical exam (Primary Care) Tobacco/Smoking Status: Tobacco use Status Patient Tobacco Use Status Former Tobacco user 12/03/24 09:00 Coding Level of Care Code Est Pt Level 4 (01500) Complex EM visit Add On G2211 Diagnoses HTN (hypertension) I10 Assessment & Plan Assessment & Plan (1) HTN (hypertension): Code(s): I10 - Essential (primary) hypertension Category: Medical Plan: Lisinopril dosage has been increased to 20 mg once a day. Continue to monitor meds Plan History of Present Illness The patient is a 74-year-old male presenting with elevated blood pressure. He consistently experiences blood pressure readings ranging around 130/74 mmHg at home, with occasional higher recordings of approximately 150-160 mmHg. He measures his blood pressure daily, noting individual variations, which he attributes to factors such as caffeine consumption. Home monitoring is somewhat complicated by his uncertainty about the accuracy of the cuff, as it occasionally registers spurious high readings initially. Despite these f luctuations, he has been managing his hypertension with 10 mg of Lisinopril daily. Additionally, the patient reports a chronic sensation of phlegm in his throat. There is no detailed history of any underlying respiratory conditions associated with this symptom. He also recounts long-standing, intermittent mild pain that he considers insignificant and has not previously sought medical advice for. Social History - Daily home monitoring of blood pressure with noted uncertainty in equipment accuracy - Regular caffeine consumption reported, potentially influencing blood pressure readings Review of Systems - Respiratory System: Reports chronic phlegm in the throat - Cardiovascular System: Denies any specific cardiac symptoms aside from elevated blood pressure Physical Exam General: Appearance normal, both eyes and all related structures Nutritional Appearance: Well nourished Orientation/consciousness: Patient oriented x3 Limitations: No limitations Head: Normal to inspection Neck: Normal visual inspection Chest: Normal palpation of entire chest wall Respiratory: Normal respiratory effort with occasional phlegm in the back of the throat Neurology: Patient oriented x3 Results - Labs: Recent blood work done in November noted as normal Plan To address the patient's essential hypertension, the Lisinopril dosage will be incremented to 20 mg daily. The patient should continue daily blood pressure monitoring while noting potential equipment inaccuracies, possibly corroborating the cuff readings with a professionally validated device if feasible. The minor issue of chronic phlegm will be observed, with a more targeted intervention considered if symptomatology progresses. A follow-up is scheduled in one month, aimed at evaluating the therapeutic efficacy of the revised medication and ensuring appropriate blood pressure management. Patient was informed and verbally consented to the use of an ambient scribe for clinic note documentation during this visit. Discussion Notes I have discussed with the patient the primary focus for today's visit, namely managing his elevated blood pressure. We agreed to increase his Lisinopril prescription to 20 mg, noting the potential benefits of better-controlled blood pressure numbers while cautioning him on potential side effects, such as dizziness or hypotension. I emphasized the importance of regular blood pressure monitoring, especially given the apparent unreliability of his current equipment. A follow-up in one month will allow us to reassess his response to the increased dosage. We talked about the possibility of reassessing the chronic phlegm if symptoms persist or alter significantly. I addressed his queries, ensuring he was comfortable with the outlined management plan. Patient Instructions - Take Lisinopril 20 mg daily as prescribed. - Continue to monitor your blood pressure daily. Consider using a professionally validated device if available. - Report any side effects, such as dizziness or excessively low blood pressure readings, immediately. - Attend the follow-up appointment in one month to reassess your blood pressure and treatment response. - Monitor for any changes or worsening in the sensation of phlegm, and report if needed. Medications: New lisinopril 20 mg PO DAILY 90 tabs 1RF
[2024-12-03 09:06] VITALS: BP 162/82; PULSE 89; TEMP 36.2; O2SAT 96; BMI 34.8
== END 2024-12-03 09:21 | disposition home or self-care (01) ==
LOC: HO.HMCSH 08:58
PROVIDERS: PCP Internal Medicine; Visit Provider Internal Medicine
DX: I10 Essential (primary) hypertension (principal)

== ENCOUNTER → 2024-12-03 08:58 | Outpatient (BNVA) | payer MEDICARE, SELFPAY | PROVIDERS: PCP Internal Medicine; Visit Provider Internal Medicine | DX: I10 Essential (primary) hypertension (principal) | CPT/HCPCS: 99212 ==

== ENCOUNTER 2024-12-31 09:15 | Outpatient (AMB) | payer MEDICARE, SELFPAY ==
--- NOTE | 2024-12-31 09:26 | A.OFFPC_ITS ---
Vital Signs 12/31/24 09:39 Height 5 ft 11.5 in Weight 257 lb BMI 35.3 BP 156/95 H Blood Pressure Location Lt brachial Pulse 85 Pulse Source Pulse Oximeter Temp 97.9 F Pulse Oximetry (%) 96 Intake Visit Reasons: follow up Intake Note: month of stuffy nose feels phlem in his throat and feels he need to clear his throat Allergies No Known Allergies Allergy (Verified 12/31/24 09:54) Medication List - Last Reconciled 12/31/24 by Janette Combs PA-C albuterol sulfate 90 mcg/actuation (ProAir HFA) 2 puffs inhalation Q6H PRN allopurinol 300 mg PO DAILY aspirin (Adult Low Dose Aspirin) 81 mg PO DAILY atorvastatin 80 mg PO DAILY betamethasone, augmented 0.05 % 1 appl topical DAILY coenzyme Q10 (Ultra CoQ10) 75 mg PO DAILY elderberry fruit and flower 460-115 mg caps PO lisinopril 20 mg PO DAILY lorazepam 1 mg PO Q6-8H magnesium 200 mg PO DAILY milk thistle 150 mg PO BID PRN multivitamin 1 tab PO QAM omega 2-wjj-cgn-fish oil 1,200 (144-216) mg (Fish Oil) caps PO omeprazole 20 mg PO DAILY Saccharomyces boulardii (Daily Probiotic (S. boulardii)) 250 mg PO BID PFSH Medical History Flushing Elevated urine levels of catecholamines Symptomatic varicose veins of both lower extremities Hyperlipidemia HTN (hypertension) CVA (cerebral vascular accident) Asthma Anxiety Surgical History No history of previous surgery Family History Mother No known health problems Father Aneurysm High blood pressure Social History Alcohol intake: current Alcohol intake frequency: 0-2 drinks per day Alcohol type: wine Patient Tobacco Use Status: Former Tobacco user Questionnaire PHQ-9 Over the last 2 weeks, how often have you been bothered by any of the following problems? 1. Little interest or pleasure in doing things: several days 2. Feeling down, depressed, or hopeless: not at all 3. Trouble falling or staying asleep, or sleeping too much: several days 4. Feeling tired or having little energy: several days 5. Poor appetite or overeating: not at all 6. Feeling bad about yourself - or that you are a failure or have let yourself or your family down: several days 7. Trouble concentrating on things, such as reading the newspaper or watching television: not at all 8. Moving or speaking so slowly that other people could have noticed. Or the opposite - being so fidgety or restless that you have been moving around a lot more than usual: not at all 9. Thoughts that you would be better off or of hurting yourself in some way: not at all Total score: 4 Depression Screening Interpretation: Negative Depression Screening Done: Yes 09620 - PHQ-9 Billing: Yes Source: Developed by Drs. Berto Castro, Noemi Romero, Louie Guzman and colleagues, with an educational ben from [employer]. Thrive Questionnaire Date Thrive assessed: 12/31/24 I am a: Patient What is your living situation today?: I have a steady place to live Within the past 12 months, did the food you bought not last and you didn't have the money to get more?: Never true Within the past 12 months, did you worry whether your food would run out before you got money to buy more?: Never true Do you have trouble paying for medicines?: No Do you have trouble getting transportation to medical appointments?: No Do you have trouble paying your heating and electricity bill?: No Do you have trouble taking care of your child, family member or friend?: No Do you have trouble with day-to-day activities such as bathing, preparing meals, shopping, managing finances, etc.?: No Are you currently unemployed and looking for a job?: No Are you interested in more education?: Yes THRIVE Score: 0 AUDIT C Alcohol Use Questionnaire (AUDIT-C) 1. How often do you have a drink containing alcohol?: 4 or more times a week 2. How many drinks containing alcohol do you have on a typical day when you are drinking?: 3 or 4 3. How often do you have six or more drinks on one occasion?: Never Total Score: 5 Score Reviewed/Action Taken: No MATT-7 AMB Questionnaire MATT-7 Date MATT - 7 assessed: 12/31/24 Feeling nervous, anxious, or on edge: 1 = Several days Not being able to stop or control worryin = Several days Worrying too much about different things: 1 = Several days Trouble relaxin = Several days Being so restless that it is hard to sit still: 0 = Not at all Becoming easily annoyed or irritable: 1 = Several days Feeling afraid as if something awful might happen: 1 = Several days Total MATT-7 score (0-4 normal; 5-9 mild; 10-14 moderate; 15-21 severe): 6 Source: Developed by Drs. Berto Castro, Noemi Romero, Louie Guzman and colleagues, with an educational ben from [employer]. MATT-7 Assessment Billing MATT-7 Assessment Tool: MATT-7 Assessment 47643 Physical exam (Primary Care) Vital Signs: Last Vital Signs Temp 97.9 F 12/31/24 09:39 Pulse 85 12/31/24 09:39 BP 156/95 H 12/31/24 09:39 Pulse Ox 96 12/31/24 09:39 Care Plan Goal for BP management: <130/90 BMI result Body Mass Index 35.3 BMI Assessment/Plan discussion: High BMI High, discussed plan: lifestyle, weight reduction, dietary, physical activity and alcohol moderation Tobacco/Smoking Status: Tobacco use Status Patient Tobacco Use Status Former Tobacco user 12/31/24 09:28 PHQ-9: PHQ-9 Score PHQ-9: Total score 4 12/31/24 09:56 Depression Screening Interpretation: Negative Thrive Assessment: Date of Thrive Assessment Date Thrive assessed 12/31/24 12/31/24 09:43 Coding Level of Care Code Est Pt Level 4 (46077) Complex EM visit Add On G2211 Diagnoses HTN (hypertension) I10 Additional Codes MATT-7 Assessment Billing - MATT-7 Assessment Tool: MATT-7 Assessment 83012 ([id number]) PHQ-9 - 18963 - PHQ-9 Billing: Yes ([id number]) Assessment & Plan Assessment & Plan (1) HTN (hypertension): Code(s): I10 - Essential (primary) hypertension Category: Medical Plan: The chronic cough potentially linked to lisinopril use for essential hypertension should be monitored. We discussed possibly changing to a different antihypertensive agent should the cough persist as a side effect. Follow-up evaluations will be crucial in determining medication efficacy and managing hypertension without adverse effects. Plan Plan Patient was informed and verbally consented to the use of an ambient scribe for clinic note documentation during this visit. 1. Essential Hypertension The chronic cough potentially linked to lisinopril use for essential hypertension should be monitored. We discussed possibly changing to a different antihypertensive agent should the cough persist as a side effect. Follow-up evaluations will be crucial in determining medication efficacy and managing hypertension without adverse effects. Discussion Notes I discussed with the patient the management of his Essential Hypertension and the possibility of White Coat Syndrome. We reviewed the current regimen of lisinopril 20 mg daily and noted discrepancies between home and clinic blood pressure readings. I provided the patient with guidance on self-monitoring blood pressure at home twice daily and documenting results. We agreed that a follow-up visit in one week would allow us to assess these home readings for a more accurate understanding of his condition. The patient expressed understanding of the instructions and potential need for adjustments only after proper evaluation. The importance of maintaining blood pressure within the targeted range and avoiding unnecessary medication changes were discussed, highlighting the risks of hypotension. During the consultation, I discussed with the patient the likelihood that his persistent cough may be associated with the use of lisinopril for hypertension management. The side effect profile of lisinopril was reviewed, which includes cough. I informed the patient that should this adverse effect continue, consideration of an alternative medication may be warranted. We discussed ensuring that any medication changes maintain effective blood pressure control and minimize symptoms. I emphasized monitoring the condition closely, and being vigilant about any progression of symptoms or additional respiratory issues, and advised a return for follow-up should further issues arise. Patient Instructions: Patient Instructions - Monitor your cough for any changes, especially in frequency or severity. - Note any other symptoms such as trouble breathing, and report these immediately. - Maintain your current medication as prescribed until a follow-up consultation. - Contact the office if the cough becomes bothersome or if you wish to discuss alternative medications. - Continue taking lisinopril 20 mg daily as prescribed. - Measure and record your blood pressure twice daily?morning and evening. - Take and record your blood pressure two hours after morning medication and again before bed. - Note any symptoms like dizziness or chest discomfort and report them promptly. - Bring your home blood pressure machine to the clinic for the follow-up visit next week. - Return for a follow-up visit in one week with your recorded blood pressure readings. - Maintain regular physical activity, such as daily walking. Scribe Plan - Not visible on output: History of Present Illness The patient is a 74-year-old male presenting with a follow-up for Essential Hypertension. He was initiated on lisinopril 20 mg daily due to elevated blood pressure detected in a previous visit. The patient reports that home blood pressure measurements are typically lower compared to clinic readings, with morning recordings around 100/78 mmHg and afternoon readings approximately 90/75 mmHg. In contrast, today's clinic measurement was 156/95 mmHg. He admits to previously taking a reduced dosage of 10 mg lisinopril for part of the last month, which might have affected blood pressure control. The patient denies experiencing symptoms such as dizziness, chest pain, or persistent shortness of breath and clarifies that he experiences exertional dyspnea only during activities like walking uphill. While he has varicose veins, he does not report significant swelling. He uses a couple of pillows at night for comfort and is active with regular daily walking. Patient does admit to a chronic cough. He reports that the cough has been present for several years. He is not sure that it is a side effect of the lisinopril. Although reports the cough has not worsened. He denies any chest congestion, shortness of breath He notes that the cough sometimes prompts throat clearing. No acute symptoms or exacerbations were reported. Social History - The patient lives an active lifestyle, walking daily. - Mentioned that his great granddaughter has started nursing school. Review of Systems - Cardiovascular: Denies chest pain, palpitations. - Respiratory: Denies persistent shortness of breath; reports exertional dyspnea when climbing hills. - Musculoskeletal: Denies leg swelling, but reports varicose veins. - General: Denies dizziness. - Respiratory: Reports chronic cough; denies associated symptoms such as fever or acute respiratory distress. Physical Exam Appearance: Alert. Oriented X3. No acute distress. Head: Normal external exam. Normocephalic. Atraumatic. Eyes: Pupils are equal, round, and reactive to light. Extraocular movements intact. Conjunctiva and sclera normal. Eyelids normal. Ears: External auditory canal normal. Tympanic membranes normal. Throat: Pharynx normal. Uvula midline. Moist mucous membranes. Note: Patient reports occasional cough, possibly related to lisinopril. Neck: Normal inspection. Neck supple. Full range of motion. No adenopathy. Thyroid Normal. No meningeal signs. No neck mass noted. Cardiovascular: Normal heart rate and rhythm. Heart sound normal. No murmurs noted. Pulses normal throughout. Respiratory: No respiratory distress. Painless inspiration. Breath sounds normal. No wheezes/rales/rhonchi noted. Chest nontender. No accessory muscle usage noted or decreased air movement noted. Abdomen: Soft and nontender. Bowel sounds normal in all 4 quadrants. No distention noted. No organomegaly noted. No visible injury noted. Back: No costovertebral angle tenderness. Full range of motion noted. Skin: Skin warm and dry. Normal skin color. Normal skin turgor. No rashes/lesions/lacerations noted. Extremities: No lower extremity edema. Extremities exhibit normal range of motion. Extremities nontender. Notable varicose veins present. Neuro: Oriented X 3. No motor deficit. No sensory deficit. Reflexes normal.
[2024-12-31 09:39] VITALS: BP 156/95; PULSE 85; TEMP 36.6; O2SAT 96; BMI 35.3
== END 2024-12-31 09:54 | disposition home or self-care (01) ==
LOC: HO.HMCSH 09:15
PROVIDERS: PCP Internal Medicine; Visit Provider Physician Assistant Medical
DX: I10 Essential (primary) hypertension (principal)

== ENCOUNTER → 2024-12-31 09:15 | Outpatient (BNVA) | payer MEDICARE, SELFPAY | PROVIDERS: PCP Internal Medicine; Visit Provider Physician Assistant Medical | DX: I10 Essential (primary) hypertension (principal) | CPT/HCPCS: 96127; 99212 ==

== ENCOUNTER 2025-01-07 11:28 | Outpatient (AMB) | payer MEDICARE, SELFPAY ==
[2025-01-07 11:29] VITALS: BP 140/92; PULSE 86; RESP 16; TEMP 36.7; O2SAT 97; BMI 35.3
--- NOTE | 2025-01-07 11:29 | MHC.PC.OV ---
Vital Signs 01/07/25 11:29 Height 5 ft 11.5 in Weight 257 lb BMI 35.3 BP 140/92 H Respiration 16 Pulse 86 Pulse Source Pulse Oximeter Temp 98.0 F Temp Source Temporal Artery Scan Pulse Oximetry (%) 97 Oxygen Delivery Method Room Air Intake Visit Reasons: 1 week f/u Machine Fitter Required: No Accompanied by: Self / Same As Patient Allergies No Known Allergies Allergy (Verified 01/07/25 11:59) Medication List - Last Reconciled 01/07/25 by Janette Combs PA-C albuterol sulfate 90 mcg/actuation (ProAir HFA) 2 puffs inhalation Q6H PRN allopurinol 300 mg PO DAILY aspirin (Adult Low Dose Aspirin) 81 mg PO DAILY atorvastatin 80 mg PO DAILY betamethasone, augmented 0.05 % 1 appl topical DAILY coenzyme Q10 (Ultra CoQ10) 75 mg PO DAILY elderberry fruit and flower 460-115 mg caps PO lisinopril 20 mg PO DAILY lisinopril 30 mg PO DAILY lorazepam 1 mg PO Q6-8H magnesium 200 mg PO DAILY milk thistle 150 mg PO BID PRN multivitamin 1 tab PO QAM omega [id number]-[id number]-[id number]-fish oil 1,200 (144-216) mg (Fish Oil) caps PO omeprazole 20 mg PO DAILY Saccharomyces boulardii (Daily Probiotic (S. boulardii)) 250 mg PO BID Tobacco use date assessed: 01/07/25 Fall risk assessment: No Falls in past year Last assessed Fall Risk: 01/07/25 Dental Screening Dental Screen Date: 01/07/25 Did you have a dental visit in the last 12 months?: Yes Did you have a dental problem in the last 6 months where you did not have access to dental care?: No Was dental information given to patient?: Patient has dentist HPI 1 week f/u HPI Details History of Present Illness The patient is a 74-year-old male presenting for follow-up of essential hypertension and evaluation of intermittent chest discomfort. Blood pressure readings have shown a pattern of higher measurements in the morning and improvement to normal levels in the evening. Previously, blood pressures in the morning have reached up to 153/103 mmHg while evening readings are often well controlled between 120/80 mmHg and 130/90 mmHg. The patient reports taking lisinopril 20 mg daily and confirms that upon rechecking, the medication appears effective. Despite the controlled blood pressure readings, there is a noted anxiety regarding his condition which is compounded by the occasional presence of chest discomfort, reportedly lessened by physical activities like walking. The patient describes the discomfort as infrequent and localized in the lower chest area, without being associated with significant physical limitations or activities. He recently experienced a minor discomfort in the abdominal area. He denies any gastric or renal symptoms such as nausea, vomiting, changes in bowel movements, or dysuria. A previous abdominal ultrasound revealed a kidney cyst, currently asymptomatic and benign. He acknowledges experiencing anxiety but does not report associated cognitive or emotional distress impacting daily life. There are no signs of acute distress, and his functional status remains preserved. Social History - Engages in regular walking exercises. - Reports experiencing anxiety, notably in relation to health concerns. - Has consistent monitoring of blood pressure as part of home management. [facility] Medical History Lower abdominal pain Cyst of right kidney Chest discomfort Flushing Elevated urine levels of catecholamines Symptomatic varicose veins of both lower extremities Hyperlipidemia HTN (hypertension) CVA (cerebral vascular accident) Asthma Anxiety Surgical History No history of previous surgery Family History Mother No known health problems Father Aneurysm High blood pressure Social History Housing: House Alcohol intake: current Alcohol intake frequency: 0-2 drinks per day Alcohol type: wine Patient Tobacco Use Status: Former Tobacco user service: No Current occupational status: retired Cognitive needs: No Hearing needs: No Vision needs: Yes (rx glasses) Questionnaire PHQ-9 Over the last 2 weeks, how often have you been bothered by any of the following problems? 1. Little interest or pleasure in doing things: not at all 2. Feeling down, depressed, or hopeless: not at all 3. Trouble falling or staying asleep, or sleeping too much: not at all 4. Feeling tired or having little energy: not at all 5. Poor appetite or overeating: not at all 6. Feeling bad about yourself - or that you are a failure or have let yourself or your family down: not at all 7. Trouble concentrating on things, such as reading the newspaper or watching television: not at all 8. Moving or speaking so slowly that other people could have noticed. Or the opposite - being so fidgety or restless that you have been moving around a lot more than usual: not at all 9. Thoughts that you would be better off or of hurting yourself in some way: not at all Total score: 0 Depression Screening Interpretation: Negative Depression Screening Done: Yes 21596 - PHQ-9 Billing: Yes Source: Developed by Drs. Berto Castro, Noemi Romero, Louie Guzman and colleagues, with an educational ben from [employer]. Thrive Questionnaire Date Thrive assessed: 12/31/24 I am a: Patient What is your living situation today?: I have a steady place to live Within the past 12 months, did the food you bought not last and you didn't have the money to get more?: Never true Within the past 12 months, did you worry whether your food would run out before you got money to buy more?: Never true Do you have trouble paying for medicines?: No Do you have trouble getting transportation to medical appointments?: No Do you have trouble paying your heating and electricity bill?: No Do you have trouble taking care of your child, family member or friend?: No Do you have trouble with day-to-day activities such as bathing, preparing meals, shopping, managing finances, etc.?: No Are you currently unemployed and looking for a job?: No Are you interested in more education?: Yes THRIVE Score: 0 AUDIT C Alcohol Use Questionnaire (AUDIT-C) 1. How often do you have a drink containing alcohol?: 4 or more times a week 2. How many drinks containing alcohol do you have on a typical day when you are drinking?: 3 or 4 3. How often do you have six or more drinks on one occasion?: Never Total Score: 5 Score Reviewed/Action Taken: No MATT-7 AMB Questionnaire MATT-7 Date MATT - 7 assessed: 12/31/24 Feeling nervous, anxious, or on edge: 1 = Several days Not being able to stop or control worryin = Several days Worrying too much about different things: 1 = Several days Trouble relaxin = Several days Being so restless that it is hard to sit still: 0 = Not at all Becoming easily annoyed or irritable: 1 = Several days Feeling afraid as if something awful might happen: 1 = Several days Total MATT-7 score (0-4 normal; 5-9 mild; 10-14 moderate; 15-21 severe): 6 Source: Developed by Drs. Berto Castro, Noemi Romero, Louie Guzman and colleagues, with an educational ben from [employer]. MATT-7 Assessment Billing MATT-7 Assessment Tool: MATT-7 Assessment 14602 Review of Systems Const Details: Review of Systems - Cardiovascular: Reports intermittent chest discomfort; Denies dizziness, shortness of breath, and leg swelling. - Gastrointestinal: Denies nausea, vomiting, changes in bowel habits, and abdominal pain. - Renal/Urinary: Denies dysuria or changes in urinary patterns. Physical exam (Primary Care) Vital Signs: Last Vital Signs Temp 98.0 F 01/07/25 11:29 Pulse 86 01/07/25 11:29 Resp 16 01/07/25 11:29 BP 140/92 H 01/07/25 11:29 Pulse Ox 97 01/07/25 11:29 Oxygen Delivery Method Room Air 01/07/25 11:29 Care Plan Goal for BP management: <130/90 increase the patient's lisinopril from 20 mg to 30 mg daily patient to return in 1 month for blood pressure check with diary of blood pressure checks BMI result Body Mass Index 35.3 BMI Assessment/Plan discussion: High BMI High, discussed plan: lifestyle, weight reduction, dietary, physical activity and alcohol moderation Tobacco/Smoking Status: Tobacco use Status Tobacco use date assessed 01/07/25 01/07/25 11:38 Patient Tobacco Use Status Former Tobacco user 01/07/25 11:38 PHQ-9: PHQ-9 Score PHQ-9: Total score 0 01/07/25 11:38 Depression Screening Interpretation: Negative Thrive Assessment: Date of Thrive Assessment Date Thrive assessed 12/31/24 01/07/25 11:38 Const Other: Physical Exam Appearance: Alert. Oriented X3. No acute distress. Head: Normal external exam. Normocephalic. Atraumatic. Eyes: Pupils are equal, round, and reactive to light. Extraocular movements intact. Conjunctiva and sclera normal. Eyelids normal. Throat: Pharynx normal. Uvula midline. Moist mucous membranes. Neck: Normal inspection. Neck supple. Full range of motion. Cardiovascular: Normal heart rate and rhythm. Heart sound normal. No murmurs noted. Pulses normal throughout. Respiratory: No respiratory distress. Painless inspiration. Breath sounds normal. No wheezes/rales/rhonchi noted. Chest nontender. No accessory muscle usage noted or decreased air movement noted. Abdomen: Soft and mild uper and lower abd pain. Bowel sounds normal in all 4 quadrants. No distention noted. No organomegaly noted. No visible injury noted. Back: No costovertebral angle tenderness. Full range of motion noted. Skin: Skin warm and dry. Normal skin color. Normal skin turgor. No rashes/lesions/lacerations noted. Extremities: No lower extremity edema. Extremities exhibit normal range of motion. Extremities nontender. Neuro: Oriented X 3. No motor deficit. No sensory deficit. Reflexes normal. Results Reviewed Results Reviewed: Results - Tests and Diagnostics: Abdominal ultrasound revealed a benign kidney cyst; previous echocardiogram was normal. Coding Level of Care Code Est Pt Level 4 (31363) Complex EM visit Add On G2211 Diagnoses Chest discomfort R07.89 HTN (hypertension) I10 Lower abdominal pain R10.30 Cyst of right kidney N28.1 Additional Codes MATT-7 Assessment Billing - MATT-7 Assessment Tool: MATT-7 Assessment 97293 ([id number]) PHQ-9 - 06409 - PHQ-9 Billing: Yes ([id number]) Assessment & Plan Assessment & Plan (1) Chest discomfort: Code(s): R07.89 - Other chest pain Category: Medical Plan: Arrange for a stress test and echocardiogram to assess for underlying cardiac issues due to intermittent chest discomfort. The patient will be contacted regarding scheduling these tests. Patient denies any acute current chest pain at this time. Instructed to go to the emergency department if he develops chest pain. Condition is stable for the past 2 months will continue to monitor. (2) HTN (hypertension): Code(s): I10 - Essential (primary) hypertension Category: Medical Plan: Continue lisinopril with increased dose to 30 mg daily. Instruct the patient to monitor blood pressure regularly, specifically in the mornings, for evaluation of medication efficacy. Reassess in one month through telehealth or in-person follow-up. Condition is chronic and stable continue to monitor. (3) Lower abdominal pain: Code(s): R10.30 - Lower abdominal pain, unspecified Category: Medical Plan: Patient with lower abdominal pain. Denies any fevers, nausea vomiting, black or bloody stools, unintentional weight loss. Will order outpatient CT scan abdomen pelvis with IV contrast to evaluate for possible abnormalities. Condition is chronic as patient has been having this for a couple of months and stable will continue to monitor. (4) Cyst of right kidney: Code(s): N28.1 - Cyst of kidney, acquired Category: Medical Plan: Offer urology referral for monitoring of the known benign kidney cyst. No immediate intervention required unless symptomatic changes occur. Condition is chronic and stable continue to monitor. Plan Plan Patient was informed and verbally consented to the use of an ambient scribe for clinic note documentation during this visit. 1. Kidney Cyst Plan: Offer urology referral for monitoring of the known benign kidney cyst. No immediate intervention required unless symptomatic changes occur. 2. Intermittent Chest Discomfort Plan: Arrange for a stress test and echocardiogram to assess for underlying cardiac issues due to intermittent chest discomfort. The patient will be contacted regarding scheduling these tests. 3. Essential Hypertension Plan: Continue lisinopril with increased dose to 30 mg daily. Instruct the patient to monitor blood pressure regularly, specifically in the mornings, for evaluation of medication efficacy. Reassess in one month through telehealth or in-person follow-up. 4. Possible Anxiety Plan: Provide reassurance through education about hypertension management and encourage regular exercise. Ongoing monitoring will continue to observe any exacerbations of anxiety symptoms. Discussion Notes I discussed with the patient the management of his essential hypertension and the decision to adjust lisinopril to 30 mg. The benefits of dosage adjustment were compared with the risks of uncontrolled hypertension. We also discussed potential symptoms of concern regarding chest discomfort and planned a stress test and an echocardiogram to address potential cardiac issues. He is instructed to go to the emergency department if he develops acute chest pain or any worsening symptoms. The patient's anxiety over health concerns was addressed by discussing lifestyle modifications that may help. I offered reassurance and explained that ongoing monitoring would help optimize treatment. The presence of a kidney cyst noted in imaging studies was reviewed, detailing that further urology evaluation could be arranged but currently poses no immediate concern. It was advised to continue regular monitoring and to discuss immediate concerns should his symptoms change. Orders: Orders ECG 12 lead EKG Today I45.2 - Bifascicular block, R07.89 - Other chest pain CT abdomen pelvis w IV con Today R10.30 - Lower abdominal pain, unspecified CA stress test Today I10 - Essential (primary) hypertension, I45.2 - Bifascicular block, R07.89 - Other chest pain CA echo transthoracic complete Today R07.89 - Other chest pain Referrals Urology Referral N28.1 - Cyst of kidney, acquired Patient Instructions: Patient Instructions - Continue lisinopril, now adjusting to take 30 mg daily as prescribed. - Record daily blood pressure readings to observe any changes that could indicate further adjustments. - Follow up for stress testing and echocardiogram as scheduled. - Continue regular exercise such as walking to assist in managing blood pressure and reducing anxiety. - Monitor for any new symptoms, specifically increased frequency or severity of chest discomfort or any changes in overall health conditions, and seek medical care if they occur. - Await scheduling for a urology follow-up regarding the benign kidney cyst.
== END 2025-01-07 12:01 | disposition home or self-care (01) ==
LOC: HO.HMCSH 11:28
PROVIDERS: PCP Internal Medicine; Visit Provider Physician Assistant Medical
DX: R07.89 Other chest pain (principal); I10 Essential (primary) hypertension; R10.30 Lower abdominal pain, unspecified; N28.1 Cyst of kidney, acquired

== ENCOUNTER → 2025-01-07 11:28 | Outpatient (BNVA) | payer MEDICARE, SELFPAY | PROVIDERS: PCP Internal Medicine; Visit Provider Physician Assistant Medical | DX: R07.89 Other chest pain (principal); I10 Essential (primary) hypertension; R10.30 Lower abdominal pain, unspecified; N28.1 Cyst of kidney, acquired | CPT/HCPCS: 96127; 99212 ==

== ENCOUNTER → 2025-02-06 08:36 | Outpatient (REF) | payer MEDICARE, SELFPAY ==
--- NOTE | 2025-02-06 08:41 | CA_ITS ---
Acquisition Time: 2025-02-06 09:56:49 Total Exercise Time: 00:06:07 Test Indications: CP Medications: SEE H&P Protocol: CHARU Max HR: 136 BPM 94% of Pred: 144 BPM Max BP: 164/78 mmHG Max Work Load: 7.1 METS Exercise stress test with exercise 6 mins 7 secs of Charu Protocol, achieving 92% MPHR, with reports of SOB, no chest pain, with isolated PVCs, with normotensive response to exercise. Without EKG changes meeting criteria for ischemai. In recovery, breathing returned to baseline. Test reviewed with Dr. Yates. Referred By: Janette Combs Electronically Signed By: Bob Jones
--- NOTE | 2025-02-06 08:41 | ECG_ITS ---
Test Reason : CHEST PAIN Blood Pressure : */* mmHG Vent. Rate : 83 BPM Atrial Rate : 83 BPM P-R Int : 152 ms QRS Dur : 136 ms QT Int : 376 ms P-R-T Axes : 25 -45 58 degrees QTcB Int : 441 ms Sinus rhythm with Premature supraventricular complexes Right bundle branch block Left anterior fascicular block Bifascicular block Abnormal ECG When compared with ECG of 25-Nov-2021 16:09, Premature supraventricular complexes are now Present Referred By: Janette Combs Electronically Signed By: SHARA CHIRINOS
--- NOTE | 2025-02-06 08:41 | CA_ITS ---
Transthoracic Echocardiogram Patient (Last, First, Middle): Bob Victor K Gender: Male Date of : 1950 Age: 75 Procedure Date: 02/06/2025 Procedure Type: Transthoracic Echocardiogram Location: OP Height: 182.88 cm Weight: 113.4 kg BSA: 2.34 m2 Heart Rate: bpm BP: 120 / 68 mmHg Optical Fabricator: TO Referring MD: Janette Combs PA-C Symptoms: R07.89 - Other chest pain Study Quality: Fair/Contrast ECG Rhythm: Sinus Conclusions: - The left ventricular systolic function is normal. The calculated ejection fraction is 60% by biplane method. - There is moderate calcification of the aortic valve. - There is mild dilatation of the ascending aorta measuring 4.30 cm and mild dilatation of the aortic arch measuring 3.80 cm. Findings Procedure Information Contrast agent, definity, is being given per protocol without apparent complications. Left Ventricle Normal left ventricular cavity size. The left ventricular systolic function is normal. The calculated ejection fraction is 60% by biplane method. There is no evidence of regional wall motion abnormalities. Diastolic function is normal for age. There is mild septal asymmetric hypertrophy. Right Ventricle Normal right ventricular cavity size. There is low normal right ventricular systolic function. Atria Both atria are normal in size. Aortic Valve There is moderate calcification of the aortic valve. There is no aortic valve stenosis. There is no aortic valve regurgitation. Mitral Valve The mitral valve appears normal. There is no mitral valve regurgitation. There is no mitral valve stenosis. Pulmonic Valve The pulmonic valve is likely normal. Tricuspid Valve There is trace tricuspid valve regurgitation. There is no evidence of pulmonary hypertension. Great Vessels There is mild dilatation of the ascending aorta measuring 4.30 cm and mild dilatation of the aortic arch measuring 3.80 cm. Venous The inferior vena cava was not well visualized. Pericardium/Pleural There is no evidence of pericardial effusion. Prior Study Comparison No significant change compared to prior study dated: 02/27/2024. Measurements 2D Linear Measurements IVSd: 1.26 0.6-0.9/0.6-1.0 cm LVIDd: 5.05 3.9-5.3/4.2-5.9 cm LVIDd Index: 2.16 2.4-3.2/2.2-3.1 cm/m2 LVIDs: 3.54 2.0-3.6 cm LVPWd: 0.89 0.7-1.1 cm LA Diam: 3.80 2.7-3.8/3.0-4.0 cm LAIDs Index: 1.62 1.5-2.3 cm/m2 LV Mass: 254.72 67-162/88-224 g LV Mass Index: 108.86 43-95/49-115 g/m2 LVOT Diam: 2.30 3.0+(-)1.3 cm 2D Systolic Function EF 4C: 59.00 >55% EF 2C: 61.10 >55% EF BiP: 59.80 >55% Mitral Valve MV Pk E: 0.45 MV PK A: 0.64 MV Decel Time: 252.00 E/A: 0.70 E'Lateral: 5.44 E'Medial: 4.24 E/E' Med: 10.70 E/E' Lat: 8.30 PHT: 74.00 MVA PHT: 2.97 Decel [place]: 1.80 Aortic Valve AoV Pk Avinash: 1.99 AoV Mn Avinash: 1.37 AoV VTI: 0.38 AoV Pk Grad: 16.00 Aov Mn Grad: 9.00 RITA Cont.VTI: 2.77 LVOT LVOT Pk Avinash: 1.47 LVOT Mn Avinash: 0.84 LVOT VTI: 0.25 LVOT Pk Grad: 9.00 LVOT Mn Grad: 4.00 LVOT Diam: 2.30 LVOT Area: 4.15 Diastolic Function MV Pk E: 0.45 MV Pk A: 0.64 E/A: 0.70 E'Medial: 4.24 E/E' Med: 10.70 E' Laterial: 5.44 E/E' Lat: 8.30 Right Ventricle TAPSE (mm): 23.00 TVS' Avinash: 10.00 Tricuspid Valve TR Pk Avinash: 2.28 TR Pk Grad: 21.00 Great Vessels Aorta Sinus of Valsalva: 3.98 2.0-3.5 cm Ao Asc: 4.30 2.1-3.4 cm Ao Arch: 3.80 Updated in Other Vendor System with Status of Final Jase Yates MD electronically signed on 02/07/2025 11:57:34 AM with status of Final
== END ==
LOC: HO.CARD 08:36
PROVIDERS: PCP Internal Medicine; Visit Provider Physician Assistant Medical
DX: R07.89 Other chest pain (principal); I45.2 Bifascicular block; I10 Essential (primary) hypertension; I77.89 Other specified disorders of arteries and arterioles
CPT/HCPCS: 93005; 93017; 93306; Q9957

== ENCOUNTER → 2025-02-06 08:41 | Outpatient (BNV) | payer MEDICARE, SELFPAY | PROVIDERS: PCP Internal Medicine | DX: R07.9 Chest pain, unspecified (principal); I45.2 Bifascicular block; R94.31 Abnormal electrocardiogram [ECG] [EKG] | CPT/HCPCS: 93010 ==

== ENCOUNTER 2025-02-09 09:31 | Outpatient (AMB) | payer MEDICARE, SELFPAY ==
[2025-02-09 09:34] VITALS: BP 120/85; PULSE 98; RESP 16; TEMP 36.4; O2SAT 95; BMI 35.3
--- NOTE | 2025-02-09 09:34 | A.OFFPC_ITS ---
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 Accompanied by: Self / Same As Patient Allergies No Known Allergies Allergy (Verified 02/09/25 10:12) Medication List - Last Reconciled 02/09/25 by Janette Combs PA-C albuterol sulfate 90 mcg/actuation (ProAir HFA) 2 puffs inhalation Q6H PRN allopurinol 300 mg PO DAILY aspirin (Adult Low Dose Aspirin) 81 mg PO DAILY atorvastatin 80 mg PO DAILY betamethasone, augmented 0.05 % 1 appl topical DAILY coenzyme Q10 (Ultra CoQ10) 75 mg PO DAILY elderberry fruit and flower 460-115 mg caps PO lisinopril 30 mg PO DAILY lorazepam 1 mg PO Q6-8H magnesium 200 mg PO DAILY milk thistle 150 mg PO BID PRN multivitamin 1 tab PO QAM omega 6-tqd-pvd-fish oil 1,200 (144-216) mg (Fish Oil) caps PO omeprazole 20 mg PO DAILY Saccharomyces boulardii (Daily Probiotic (S. boulardii)) 250 mg PO BID Tobacco use date assessed: 02/09/25 Fall risk assessment: No Falls in past year Last assessed Fall Risk: 02/09/25 Dental Screening Dental Screen Date: 01/07/25 HPI 1 month f/u, blood pressure HPI Details The patient is a 75-year-old male presenting with concerns centered around essential hypertension management and follow-up evaluations concerning cardiovascular imaging. His blood pressure is well-controlled on Lisinopril 30 mg. Previous echocardiogram studies indicated aortic valve calcification and ascending aortic dilation. The patient has scheduled cardiology and urology follow-ups to address these issues, a right kidney cyst, and potential future interventions for varicose veins, which previously required surgical intervention. He engages in regular physical activity, although currently experiencing foot calluses and recurrent leg sores attributed to varicose veins. Social History - Physical activity includes regular wal lo. - Reports painful calluses associated wi walking. - Has experienced vascular issues, under going previous surgical intervention for varicose veins. [facility] Medical History (Updated 02/09/25 @ 10:16 by Janette Combs PA-C) Aortic valve calcification Ascending aorta dilatation Varicose vein of leg Callus Lower abdominal pain Cyst of right kidney Chest discomfort Flushing Elevated urine levels of catecholamines Symptomatic varicose veins of both lower extremities Hyperlipidemia HTN (hypertension) CVA (cerebral vascular accident) Asthma Anxiety Surgical History History of colonoscopy (~09/26/19) No history of previous surgery Family History Mother No known health problems Father Aneurysm High blood pressure Social History Housing: House Alcohol intake: current Alcohol intake frequency: 0-2 drinks per day Alcohol type: wine Patient Tobacco Use Status: Former Tobacco user service: No Current occupational status: retired Cognitive needs: No Hearing needs: No Vision needs: Yes (rx glasses) Questionnaire PHQ-9 Over the last 2 weeks, how often have you been bothered by any of the following problems? 1. Little interest or pleasure in doing things: not at all 2. Feeling down, depressed, or hopeless: not at all 3. Trouble falling or staying asleep, or sleeping too much: not at all 4. Feeling tired or having little energy: not at all 5. Poor appetite or overeating: not at all 6. Feeling bad about yourself - or that you are a failure or have let yourself or your family down: not at all 7. Trouble concentrating on things, such as reading the newspaper or watching television: not at all 8. Moving or speaking so slowly that other people could have noticed. Or the opposite - being so fidgety or restless that you have been moving around a lot more than usual: not at all 9. Thoughts that you would be better off or of hurting yourself in some way: not at all Total score: 0 Depression Screening Interpretation: Negative Depression Screening Done: Yes 66706 - PHQ-9 Billing: Yes Source: Developed by Drs. Berto Castro, Noemi Romero, Louie Guzman and colleagues, with an educational ben from [employer]. Thrive Questionnaire Date Thrive assessed: 01/07/25 I am a: Patient What is your living situation today?: I have a steady place to live Within the past 12 months, did the food you bought not last and you didn't have the money to get more?: Never true Within the past 12 months, did you worry whether your food would run out before you got money to buy more?: Never true Do you have trouble paying for medicines?: No Do you have trouble getting transportation to medical appointments?: No Do you have trouble paying your heating and electricity bill?: No Do you have trouble taking care of your child, family member or friend?: No Do you have trouble with day-to-day activities such as bathing, preparing meals, shopping, managing finances, etc.?: No Are you currently unemployed and looking for a job?: No Are you interested in more education?: Yes THRIVE Score: 0 AUDIT C Alcohol Use Questionnaire (AUDIT-C) 1. How often do you have a drink containing alcohol?: 4 or more times a week 2. How many drinks containing alcohol do you have on a typical day when you are drinking?: 3 or 4 3. How often do you have six or more drinks on one occasion?: Never Total Score: 5 Score Reviewed/Action Taken: No (pt declines help to quit ) MATT-7 AMB Questionnaire MATT-7 Date MATT - 7 assessed: 01/07/25 Feeling nervous, anxious, or on edge: 1 = Several days Not being able to stop or control worryin = Several days Worrying too much about different things: 1 = Several days Trouble relaxin = Several days Being so restless that it is hard to sit still: 0 = Not at all Becoming easily annoyed or irritable: 1 = Several days Feeling afraid as if something awful might happen: 1 = Several days Total MATT-7 score (0-4 normal; 5-9 mild; 10-14 moderate; 15-21 severe): 6 Source: Developed by Drs. Berto Castro, Noemi Romero, Louie Guzman and colleagues, with an educational ben from [employer] MATT-7 Assessment Billing MATT-7 Assessment Tool: MATT-7 Assessment 09301 Review of Systems Const Details: - Cardiovascular: Reports slight chest discomfort and mild shortness of breath. Denies chest pain. - Musculoskeletal: Reports slight discomfort during physical activities. - Dermatologic: Reports chronic leg sore due to varicose veins. Denies any other skin changes. - Genitourinary: Denies urinary issues. - Neurological: Denies numbness, tingling, or jaw pain. Physical exam (Primary Care) Vital Signs: Last Vital Signs Temp 97.6 F 02/09/25 09:34 Pulse 98 02/09/25 09:34 Resp 16 02/09/25 09:34 BP 120/85 02/09/25 09:34 Pulse Ox 95 02/09/25 09:34 Oxygen Delivery Method Room Air 02/09/25 09:34 Care Plan Goal for BP management: <130/90 at Goal BMI result Body Mass Index 35.3 BMI Assessment/Plan discussion: High BMI High, discussed plan: lifestyle, weight reduction, dietary, physical activity and alcohol moderation Tobacco/Smoking Status: Tobacco use Status Tobacco use date assessed 02/09/25 02/09/25 09:42 Patient Tobacco Use Status Former Tobacco user 02/09/25 09:42 PHQ-9: PHQ-9 Score PHQ-9: Total score 0 02/09/25 09:42 Depression Screening Interpretation: Negative Thrive Assessment: Date of Thrive Assessment Date Thrive assessed 01/07/25 02/09/25 09:42 Const Other: Appearance: Alert. Oriented X3. No acute distress. Head: Normal external exam. Normocephalic. Atraumatic. Eyes: Pupils are equal, round, and reactive to light. Extraocular movements intact. Conjunctiva and sclera normal. Eyelids normal. Throat: Pharynx normal. Uvula midline. Moist mucous membranes. Neck: Normal inspection. Neck supple. Full range of motion. Cardiovascular: Normal heart rate and rhythm. Heart sound normal. No murmurs noted. Pulses normal throughout. Respiratory: No respiratory distress. Painless inspiration. Breath sounds normal. No wheezes/rales/rhonchi noted. Chest nontender. No accessory muscle usage noted or decreased air movement noted. Reports a little bit of shortness of breath. Abdomen: Soft and nontender. Back: No costovertebral angle tenderness. Full range of motion noted. Skin: Skin warm and dry. Normal skin color. Normal skin turgor. No rashes/lesions/lacerations noted. Reports a sore on the leg due to varicose veins. Extremities: No lower extremity edema. Extremities exhibit normal range of motion. Reports painful calluses on feet. Neuro: Oriented X 3. No motor deficit. No sensory deficit. Reflexes normal. Results Reviewed Results Reviewed: - Echocardiogram: Normal left ventricular function, ejection fraction 60%, aortic valve calcification, ascending aortic dilation (4.3 cm). - ECG: Sinus rhythm, occasional premature ventricular contractions, right bundle branch block, left anterior fascicular block. - Stress Test: Normal, a few PVCs, no signs of ischemia. Coding Level of Care Code Est Pt Level 4 (94712) Complex EM visit Add On G2211 Diagnoses HTN (hypertension) I10 Symptomatic varicose veins of both lower extremities I83.893 Cyst of right kidney N28.1 Callus L84 Ascending aorta dilatation I77.810 Aortic valve calcification I35.9 Additional Codes MATT-7 Assessment Billing - MATT-7 Assessment Tool: MATT-7 Assessment 75380 ([id number]) PHQ-9 - 20549 - PHQ-9 Billing: Yes ([id number]) Assessment & Plan Assessment & Plan (1) HTN (hypertension): Code(s): I10 - Essential (primary) hypertension Category: Medical Plan: BP Goal less than 130/90. Blood pressure at goal with lisinopril 30 mg daily. Condition is chronic and stable will continue to monitor. (2) Symptomatic varicose veins of both lower extremities: Code(s): I83.893 - Varicose veins of bilateral lower extremities with other complications Category: Medical Plan: Further surgical consultation to manage symptoms and prevent complications. Condition is chronic and stable continue to monitor. (3) Cyst of right kidney: Code(s): N28.1 - Cyst of kidney, acquired Category: Medical Plan: Urology consult and CT scan arranged to assess. Condition is chronic and stable continue to monitor. (4) Callus: Code(s): L84 - Corns and callosities Category: Medical Plan: Scheduled evaluation with podiatry for mechanical debridement. Condition is chronic and stable continue to monitor. 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 Condition is chronic and stable continue to monitor. (6) Aortic valve calcification: Code(s): I35.9 - Nonrheumatic aortic valve disorder, unspecified Category: Medical Plan: Continued cardiology follow-up for monitoring, no immediate intervention needed. Condition is chronic and stable will continue to monitor. Plan Plan Patient was informed and verbally consented to the use of an ambient scribe for clinic note documentation during this visit. 1. Essential Hypertension Blood pressure control is maintained with current medication; recommend continued monitoring and dosage adjustment if needed. 2. Aortic Valve Calcification Continued cardiology follow-up for monitoring, no immediate intervention needed. 3. Ascending Aortic Dilation Principal Account Clerk to monitor; follow-up imaging planned. 4. Kidney Cyst Urology consult and CT scan arranged to assess. 5. Painful Foot Calluses Scheduled evaluation with podiatry for mechanical debridement. 6. Varicose Veins Further surgical consultation to manage symptoms and prevent complications. 7. Skin Sore Due To Varicose Veins Plan detailed discussion on ongoing care with vascular surgeon for resolution. During the visit, I discussed the status of the patient's hypertension management, confirming that his current regimen of Lisinopril 30 mg daily is effective. Correct technique for home blood pressure monitoring was addressed. For aortic valve calcification and ascending aortic dilation, regular follow-ups with cardiology are planned. As discussed with the patient, the kidney cyst will be monitored through imaging and urology consult. Referral to podiatry for foot calluses and to a vascular surgeon regarding varicose veins and leg sores was agreed upon, accepting potential treatments such as vein ablation if deemed necessary. The importance of regular follow-up and monitoring was underscored, with appointments scheduled with urology, cardiology, and imaging studies as precursors to further management decisions. Orders: Referrals Podiatry Referral L84 - Corns and callbhavana Vascular Surgery Referral I83.90 - Asymptomatic varicose veins of unspecified lower extremity Patient Instructions: - Take blood pressure medication as prescribed. - Monitor blood pressure regularly; report any extremely low or high readings. - Visit transport coordinator as scheduled for valve and aorta monitoring. - Follow up with the urologist on March 11. - Attend podiatry appointment for callus management. - Consult with a vascular surgeon about varicose veins. - Complete scheduled CT scan on March 04.
== END 2025-02-09 10:04 | disposition home or self-care (01) ==
LOC: HO.HMCSH 09:31
PROVIDERS: PCP Internal Medicine; Visit Provider Physician Assistant Medical
DX: I10 Essential (primary) hypertension (principal); I83.893 Varicose veins of bilateral lower extremities with other complications; N28.1 Cyst of kidney, acquired; L84 Corns and callosities; I77.810 Thoracic aortic ectasia; I35.9 Nonrheumatic aortic valve disorder, unspecified

== ENCOUNTER → 2025-02-09 09:31 | Outpatient (BNVA) | payer MEDICARE, SELFPAY | PROVIDERS: PCP Internal Medicine; Visit Provider Physician Assistant Medical | DX: I10 Essential (primary) hypertension (principal); I83.893 Varicose veins of bilateral lower extremities with other complications; N28.1 Cyst of kidney, acquired; L84 Corns and callosities; I77.810 Thoracic aortic ectasia; I35.9 Nonrheumatic aortic valve disorder, unspecified | CPT/HCPCS: 96127; 99212 ==

== ENCOUNTER 2025-02-24 09:22 | Outpatient (AMB) | payer MEDICARE, SELFPAY ==
--- NOTE | 2025-02-24 09:23 | MHC.OFFVIS ---
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 Jarvis. Pt states they only ache once in a while. 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 Having attended a prior consultation in March of 2022 where no ultrasounds were performed, he experiences ongoing varicosities in both legs, notably more prevalent in the left. The symptomatic aching is occasionally present. Dermatological complaints include irritation and discoloration around the area, potentially aggravated by manual scratching and being exacerbated by the varicose veins. He reports a family history of vascular anomalies, particularly an aneurysm in his father. Patient denies any previous venous surgery or injections. Patient denies any history of DVT/ PE. Patient denies any history of phlebitis. Trial of compression includes - prescription since 2021 They now present for vascular evaluation regarding their varicose veins. [facility] Medical History Aortic valve calcification Ascending aorta dilatation Varicose vein of leg Callus Lower abdominal pain Cyst of right kidney Chest discomfort Flushing Elevated urine levels of catecholamines Symptomatic varicose veins of both lower extremities Hyperlipidemia HTN (hypertension) CVA (cerebral vascular accident) Asthma Anxiety Surgical History History of colonoscopy (~09/26/19) No history of previous surgery Family History Mother No known health problems Father Aneurysm High blood pressure Social History Housing: House Alcohol intake: current Alcohol intake frequency: 0-2 drinks per day Alcohol type: wine Patient Tobacco Use Status: Former Tobacco user service: No Current occupational status: retired Cognitive needs: No Hearing needs: No Vision needs: Yes (rx glasses) Review of Systems Const Reports as per HPI ENT Reports no additional complaints Card Denies chest pain, Denies chest pain at rest and Denies chest pain with activity Resp Denies chest congestion and Denies cough GI Reports no additional complaints Musc Details: pain over varicosities, aching of lower extremities, swelling, cramping, heaviness and tiredness, itching Denies abnormal gait Skin/Breast Reports pruritus and Denies wounds Neuro Reports no additional complaints and Denies abnormal gait Psych Denies no additional complaints Physical Exam Vital Signs: BMI result Body Mass Index 35.3 Const General: cooperative, healthy appearing and comfortable Orientation/consciousness: oriented to person, oriented to place and oriented to time Neck Carotids: no bruits Chest Chest palpation & inspection: normal inspection of the chest and normal palpation of entire chest wall Resp Effort & Inspection: normal respiratory effort and able to speak in complete sentences Cardio Rate: regular rate Heart sounds: S1 normal heart sound present and S2 normal heart sound present Peripheral pulses: Peripheral pulses 2+ throughout GI Inspection: Yes normal to inspection Skin Other: +2 edema, large rope-like varicosities greater than 4 mm left thigh and calf right calf CEAP Classification C4 - skin color changes Ep - Etiology Primary As - superficial veins P - reflux General skin exam: dry skin Neuro General: oriented to person, oriented to place and oriented to time Extrem Right lower extremity: full ROM, normal capillary refill and edema Left lower extremity: full ROM, normal capillary refill and edema Psych Mental Status: mental status grossly normal Assessment & Plan Assessment & Plan (1) Varicose veins of right lower extremity with inflammation: Code(s): I83.11 - Varicose veins of right lower extremity with inflammation Category: Medical Plan: In short, the patient has evidence of venous insufficiency. I have discussed the pathophysiology with the patient. In addition I have provided informational material regarding venous disease to the patient. We have discussed conservative measures including compression, elevation, and exercise. I have also provided a handout regarding appropriate use of compression stockings and where to purchase good compression stockings as well. I have taken the liberty of ordering venous insufficiency testing with the patient. They will follow up with me after testing. The patient had an opportunity to ask questions regarding the treatment plan. All questions were answered. Imaging studies, laboratory studies and physical exam results were discussed and reviewed in detail. No major barriers to understanding were identified. The patient expressed understanding and agreement with the above treatment plan. The patient is aware they should contact our office by phone for worsening of the current condition or the appearance of new symptoms. Thank you for allowing me to participate in the vascular care of this patient. If you have any questions or concerns regarding the treatment for the above condition please do not hesitate to contact me. The office telephone contact is [phone]. This note is constructed using voice recognition software. While every effort has been made to ensure accuracy, clinical specialist vascular errors may have been included. Thank you for allowing me to participate in the care of your patient. Yours sincerely, Homero Ramirez MD, FACS, R.P.V.I. (2) Encounter for abdominal aortic aneurysm (AAA) screening: Code(s): Z13.6 - Encounter for screening for cardiovascular disorders Category: Medical Plan: Patient does have a family history of father with an iliac artery aneurysm. He is actually scheduled for a CAT scan with the primary care team. We will follow up with those imaging studies to ensure that he does not have any aneurysmal disease. Orders: Orders US venous duplex LE BI 1 Week I83.11 - Varicose veins of right lower extremity with inflammation Coding Level of Care Code Est Pt Level 4 (19662) Diagnoses Varicose veins of right lower extremity with inflammation I83.11 Encounter for abdominal aortic aneurysm (AAA) screening Z13.6
[2025-02-24 09:24] VITALS: BMI 35.3
== END 2025-02-24 09:55 | disposition home or self-care (01) ==
LOC: HO.HVS 09:23
PROVIDERS: PCP Internal Medicine; Visit Provider Surgery Vascular Surgery
DX: I83.11 Varicose veins of right lower extremity with inflammation (principal); Z13.6 Encounter for screening for cardiovascular disorders
CPT/HCPCS: 99214

== ENCOUNTER → 2025-02-24 09:22 | Outpatient (BNVA) | payer MEDICARE, SELFPAY | PROVIDERS: PCP Internal Medicine; Visit Provider Surgery Vascular Surgery | DX: I83.11 Varicose veins of right lower extremity with inflammation (principal) | CPT/HCPCS: 99212 ==

== ENCOUNTER 2025-02-26 13:21 | Outpatient (REF) | payer MEDICARE, SELFPAY ==
[2025-02-26 16:02] LABS: MANUAL DIFF FLAG NO
[2025-02-26 16:08] LABS: Basophils Percent Auto 0.7 % (0-2); Eosinophils Absolute Auto 0.1 X10*3/uL (0.0-0.4); Eosinophils Percent Auto 2.1 % (0-4); Hematocrit 42.5 % (42.0-52.0); Hemoglobin 14.6 g/dl (14.0-18.0); Imm Gran Abs Auto 0.01 X10*3/uL (0.00-0.03); Imm Gran Pct Auto 0.2 % (0.0-0.4); Lymphocytes Absolute Auto 1.2 X10*3/uL (1.2-4.9); Lymphocytes Percent Auto 21.3 % (20-40); Mean Corpuscular HGB Conc 34.4 g/dl (31.0-36.0); Mean Corpuscular Hemoglobin 32.9 pg (27.0-33.0); Mean Corpuscular Volume 95.7 fL (80.0-98.0); Mean Platelet Volume 9.3 fL (9.4-12.4); Monocytes Absolute Auto 0.6 X10*3/uL (0.1-1.2); Monocytes Percent Auto 10.2 % (2-11); Neutrophils Absolute Auto 3.7 x10*3/uL (2.0-8.3); Neutrophils Percent Auto 65.5 % (45-73); Platelet Count 280 X10*3/uL (160-400); Red Blood Count 4.44 X10*6/uL (4.60-5.80); Red Cell Distribution Width 13.1 % (11.0-16.0); White Blood Count 5.7 X10*3/uL (4.8-10.8)
[2025-02-26 18:53] LABS: Alanine Aminotransferase 31 U/L (0-40); Albumin Level 4.7 g/dL (3.5-5.0); Alkaline Phosphatase 89 U/L (39-117); Anion Gap 14 (12-20); Aspartate Amino Transferase 31 U/L (5-37); Bilirubin Total 1.2 mg/dL (0.0-1.0); Blood Urea Nitrogen 18 mg/dL (9-16); Calcium 9.7 mg/dL (8.4-10.2); Carbon Dioxide 25 mmol/L (22-29); Chloride 102 mmol/L (96-108); Estimated Glomerular Filt Rate > 60; Glucose Random 137 mg/dL (60-115); Potassium 4.3 mmol/L (3.3-5.1); Sodium 137 mmol/L (135-145); Total Protein 7.7 g/dL (6.5-8.0)
== END 2025-02-26 13:22 | disposition home or self-care (01) ==
LOC: HO.HMGCLDS 13:21
PROVIDERS: PCP Internal Medicine; Visit Provider Physician Assistant Medical
DX: Z00.00 Encounter for general adult medical examination without abnormal findings (principal); Z13.0 Encounter for screening for diseases of the blood and blood-forming organs and certain disorders involving the immune mechanism
CPT/HCPCS: 36415; 80053; 85025

== ENCOUNTER 2025-03-04 15:41 | Outpatient (REF) | payer MEDICARE, SELFPAY ==
--- NOTE | ~2025-03-04 | CT_ITS ---
CLINICAL HISTORY: R10.30 - Lower abdominal pain, unspecified CT abdomen and pelvis with contrast Comparison: None Findings: The lung bases are clear. The liver, gallbladder, spleen, adrenal glands and pancreas are unremarkable. Kidneys, ureters and bladder demonstrate no acute or suspicious abnormality. Extensive diverticulosis. No evidence of diverticulitis. Normal appendix. Questionable soft tissue prominence along the posterior aspect of the cecum which is positioned midline. 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 No free air, free fluid, abscess or adenopathy. Moderate diffuse atherosclerotic disease. No acute osseous finding. The prostate gland is mildly enlarged. Small fat containing left inguinal hernia. Impression: The cecum is mildly prominent and positioned midline. 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 Questionable soft tissue along the posterior aspect of the cecum. Correlation with any recent colonoscopy. Outpatient GI consultation could be considered. This document has been electronically signed by: Prakash Guzman MD on 03/05/2025 13:36:21
[2025-03-04] MEDS: iohexoL 350 MG/ML 100 ML INFUS..BTL IV (16:12)
== END 2025-03-04 15:42 | disposition home or self-care (01) ==
LOC: HO.CT 15:41
PROVIDERS: PCP Internal Medicine; Visit Provider Physician Assistant Medical
DX: R10.30 Lower abdominal pain, unspecified (principal)
CPT/HCPCS: 74177; Q9967

== ENCOUNTER → 2025-03-04 15:47 | Outpatient (BNV) | payer MEDICARE, SELFPAY | PROVIDERS: PCP Internal Medicine; Visit Provider Radiology Vascular & Interventional Radiology | DX: R10.30 Lower abdominal pain, unspecified (principal) | CPT/HCPCS: 74177 ==

== ENCOUNTER 2025-03-11 08:47 | Outpatient (AMB) | payer MEDICARE, SELFPAY ==
--- NOTE | 2025-03-11 08:56 | MHC.OFFVIS ---
Intake Visit Reasons: Kidney cyst Intake Note: New patient presents today for initial visit for kidney cyst Urology Medication:Allopurinol Blood Thinner:Aspirin Antibiotic Allergies:None Allergies No Known Allergies Allergy (Verified 03/11/25 09:11) Medication List - Last Reconciled 03/11/25 by NURIA Gooden albuterol sulfate 90 mcg/actuation (ProAir HFA) 2 puffs inhalation Q6H PRN allopurinol 300 mg PO DAILY aspirin (Adult Low Dose Aspirin) 81 mg PO DAILY atorvastatin 80 mg PO DAILY betamethasone, augmented 0.05 % 1 appl topical DAILY coenzyme Q10 (Ultra CoQ10) 75 mg PO DAILY elderberry fruit and flower 460-115 mg caps PO lisinopril 30 mg PO DAILY lorazepam 1 mg PO DAILY PRN magnesium 200 mg PO DAILY milk thistle 150 mg PO BID PRN multivitamin 1 tab PO QAM omega 7-kdu-bjf-fish oil 1,200 (144-216) mg (Fish Oil) caps PO omeprazole 20 mg PO DAILY Saccharomyces boulardii (Daily Probiotic (S. boulardii)) 250 mg PO BID HPI Comments Details: Bob is a very pleasant 75-year-old male patient of Dr. Schulz. He has a past medical history of aortic valve calcification, ascending aorta dilatation, varicose veins, hyperlipidemia, hypertension, CVA, asthma, and anxiety. He presents to the office today as a new patient for a right renal cysts. In discussion with the patient today reports having followed up with his PCP for ongoing abdominal pain he had been experiencing at which time he had an abdominal ultrasound that noted a right renal cyst however most recently had CT performed in cyst was not noted. Both of these imaging results were reviewed and communicated with the patient today. Abdominal ultrasound 09/23 bilateral kidneys are normal in echotexture. No hydronephrosis noted bilaterally. There is a 3.6 cm right exophytic anechoic lesion without septations or nodular components in the midportion of the right kidney. CT 03/25 kidneys, ureters, and bladder demonstrate no acute or suspicious abnormalities per radiology report. When asked he does report episodes of urinary frequency with increase consumption of salt like fluids he otherwise denies incontinence, nocturia, hematuria, dysuria, foul smelling urine, changes to urinary stream, flank pain, fever, and or chills. He is happy with his current voiding parameters. We discussed at length potential causes and classifications of renal cysts. All questions were answered. He otherwise offers no other issues or concerns at this time. PSA: 08/18 1.7, 10/20 1.6, 09/20 2.2, 10/23 2.4, 04/23 3.2 [facility] Medical History Cecal bascule Aortic valve calcification Ascending aorta dilatation Varicose vein of leg Callus Lower abdominal pain Cyst of right kidney Chest discomfort Flushing Elevated urine levels of catecholamines Symptomatic varicose veins of both lower extremities Hyperlipidemia HTN (hypertension) CVA (cerebral vascular accident) Asthma Anxiety Surgical History History of colonoscopy (~09/26/19) No history of previous surgery Family History Mother No known health problems Father Aneurysm High blood pressure Social History Housing: House Alcohol intake: current Alcohol intake frequency: 0-2 drinks per day Alcohol type: wine Patient Tobacco Use Status: Former Tobacco user service: No Current occupational status: retired Cognitive needs: No Hearing needs: No Vision needs: Yes (rx glasses) Review of Systems Const All systems reviewed & are unremarkable except as noted in HPI and below Physical Exam Const General: cooperative, healthy appearing, comfortable, no acute distress, well developed, alert and awake Nutritional Appearance: overweight Orientation/consciousness: patient oriented x3 Limitations: no limitations HEENT Head: Yes normal to inspection, Yes normocephalic and Yes atraumatic Ears: hearing grossly normal bilaterally Eyes General: appearance normal, both eyes and all related structures Neck Neck: Yes normal visual inspection and Yes trachea midline Chest Chest palpation & inspection: normal inspection of the chest Resp Effort & Inspection: normal respiratory effort and able to speak in complete sentences Cardio Rate: regular rate GI Inspection: Yes normal to inspection General: Yes no CVA tenderness Back/Spine/Pelvis Back: no CVA tenderness Skin General skin exam: no rashes or lesions noted Neuro General: patient oriented x3 Extrem General: Yes normal to inspection Psych Appearance: grossly normal and well kempt Mental Status: mental status grossly normal Speech and movement: Normal speech and movement present and Clear speech present Affect: normal affect Attitude: cooperative Thought process: Normal thought process present Thought content: Normal thought content present Insight: Fair insight present (Psych) Judgement: Fair judgement present (Psych) Results Reviewed Results Reviewed: Date of Service: 03/04/25 Procedure(s): CT abdomen pelvis w IV con Findings: The lung bases are clear. The liver, gallbladder, spleen, adrenal glands and pancreas are unremarkable. Kidneys, ureters and bladder demonstrate no acute or suspicious abnormality. Extensive diverticulosis. No evidence of diverticulitis. Normal appendix. Questionable soft tissue prominence along the posterior aspect of the cecum which is positioned midline. 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 No free air, free fluid, abscess or adenopathy. Moderate diffuse atherosclerotic disease. No acute osseous finding. The prostate gland is mildly enlarged. Small fat containing left inguinal hernia. Impression: The cecum is mildly prominent and positioned midline. 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 Questionable soft tissue along the posterior aspect of the cecum. Correlation with any recent colonoscopy. Outpatient GI consultation could be considered. Date of Service: 09/26/24 Procedure(s): US abdomen complete FINDINGS: Submitted for interpretation on October 31, 2024. PANCREAS: No peripancreatic fluid collections. ABDOMINAL AORTA: The proximal, mid, and distal segments are normal in caliber. INFERIOR VENA CAVA: Visualized portions are normal. LIVER: Limited examination demonstrated no gross solid or cystic lesion. No intrahepatic biliary ductal dilatation. Liver is not measured. GALLBLADDER: Fluid-filled without pericholecystic fluid collection or gallbladder wall thickening. COMMON BILE DUCT 3 mm. RIGHT KIDNEY: 12 cm. Normal echotexture. Normal renal cortical thickness. No hydronephrosis. There is a 3.6 cm exophytic anechoic lesion without septations or nodular components and of the midportion.. LEFT KIDNEY: 12 cm. Normal echotexture. Normal renal thickness. No hydronephrosis. No solid or cystic lesion.. SPLEEN: 11 cm. No focal lesion.. FREE FLUID: None. Elevation of the region of concern in the right lower quadrant demonstrated no gross fluid collections or masses. Appendix is not identified. IMPRESSION: No cholelithiasis. 3.6 cm cyst, right kidney. Assessment & Plan Assessment & Plan (1) Cyst of right kidney: Code(s): N28.1 - Cyst of kidney, acquired Category: Medical Plan Recent CT and abdominal ultrasound results reviewed with the patient today; as noted above. He currently denies any bothersome urinary issues or concerns. He reports be happy with current voiding parameters. We discussed classifications and potential causes of renal cysts. Will continue with surveillance monitoring. Will obtain renal ultrasound in 6 months. Follow-up in 6 months with imaging to be completed prior; or sooner with any issues, concerns, and or questions. Orders: Orders US renal BI 6 Months N28.1 - Cyst of kidney, acquired Patient Instructions: The patient had an opportunity to ask questions regarding the treatment plan. All questions were answered. Physical exam, labs, and imaging were discussed and reviewed in detail. As well as risks, benefits, and discussion of treatment choices. No major barriers to understanding were identified. The patient expressed understanding and agreement with the above treatment plan. The patient was made aware they should contact our office by phone for worsening of their current condition, the appearance of new symptoms, or with any questions or concerns. Compliance is encouraged with any medications and follow up testing that is ordered. It is a privilege to be allowed the opportunity to participate in? your urological care.? Again, if you have any questions or concerns If you have any questions or concerns please do not hesitate to contact me. The office is [phone]. This note is constructed using voice recognition software. While every effort has been made to ensure accuracy advanced manufacturing associate errors may have been included. Yours sincerely, NURIA Gooden Coding Level of Care Code New Pt Level 3 (28969) Diagnoses Cyst of right kidney N28.1
== END 2025-03-11 09:12 | disposition home or self-care (01) ==
LOC: HO.HUSH 08:48
PROVIDERS: PCP Internal Medicine; Visit Provider Nurse Practitioner Family
DX: N28.1 Cyst of kidney, acquired (principal)
CPT/HCPCS: 99203

== ENCOUNTER → 2025-03-11 08:47 | Outpatient (BNVA) | payer MEDICARE, SELFPAY | PROVIDERS: PCP Internal Medicine; Visit Provider Nurse Practitioner Family | DX: N28.1 Cyst of kidney, acquired (principal) | CPT/HCPCS: 99202 ==

== ENCOUNTER 2025-03-19 09:31 | Outpatient (AMB) | payer MEDICARE, SELFPAY ==
[2025-03-19 09:34] VITALS: BP 124/80; PULSE 93; BMI 35.5
--- NOTE | 2025-03-19 09:34 | MHC.OFFVIS ---
Vital Signs 03/19/25 09:34 Height 5 ft 11.5 in Weight 257 lb 15.053 oz BMI 35.5 BP 124/80 Blood Pressure Location Lt brachial Position Sitting Pulse 93 Intake Visit Reasons: 1 yr f/up Intake Note: 1 year follow-up with ekg feeling good post ekg,echo, and stress Autotransfusionist Required: No Allergies No Known Allergies Allergy (Verified 03/11/25 09:11) Medication List - Last Reconciled 03/19/25 by Ismael Davalos MD albuterol sulfate 90 mcg/actuation (ProAir HFA) 2 puffs inhalation Q6H PRN allopurinol 300 mg PO DAILY aspirin (Adult Low Dose Aspirin) 81 mg PO DAILY atorvastatin 80 mg PO DAILY betamethasone, augmented 0.05 % 1 appl topical DAILY coenzyme Q10 (Ultra CoQ10) 75 mg PO DAILY elderberry fruit and flower 460-115 mg caps PO lisinopril 30 mg PO DAILY lorazepam 1 mg PO DAILY PRN magnesium 200 mg PO DAILY milk thistle 150 mg PO BID PRN multivitamin 1 tab PO QAM omega 8-pdy-onq-fish oil 1,200 (144-216) mg (Fish Oil) caps PO omeprazole 20 mg PO DAILY Saccharomyces boulardii (Daily Probiotic (S. boulardii)) 250 mg PO BID HPI Comments Details: Don comes for follow-up. Recently in January had elevated blood pressure readings. At that time he underwent cardiac workup including a stress test which had moderate workload for his age was within normal limits with no ischemia. Echocardiogram showed normal LV ejection fraction with mildly dilated ascending aorta. EKG showed bifascicular block which is unchanged. Patient comes for follow-up. Since then in his lisinopril was increased. Since then he says blood pressures been better controlled. He had no symptoms of chest pain or shortness of breath except for when he goes up hill during his walk he gets some shortness of breath which she thinks he is expected. He denies any orthopnea, PND, leg edema. Denies any prolonged palpitation irregular heartbeat. He takes all his medications regularly. [facility] Medical History Cecal bascule Aortic valve calcification Ascending aorta dilatation Varicose vein of leg Callus Lower abdominal pain Cyst of right kidney Chest discomfort Flushing Elevated urine levels of catecholamines Symptomatic varicose veins of both lower extremities Hyperlipidemia HTN (hypertension) CVA (cerebral vascular accident) Asthma Anxiety Surgical History History of colonoscopy (~09/26/19) No history of previous surgery Family History Mother No known health problems Father Aneurysm High blood pressure Social History Housing: House Alcohol intake: current Alcohol intake frequency: 0-2 drinks per day Alcohol type: wine Patient Tobacco Use Status: Former Tobacco user service: No Current occupational status: retired Cognitive needs: No Hearing needs: No Vision needs: Yes (rx glasses) Review of Systems Const Denies chills, Denies fatigue, Denies fever(s), Denies frequent falls, Denies weakness, Denies weight gain and Denies weight loss ENT Denies dizziness Card Denies chest pain, Denies leg edema, Denies lightheadedness, Denies palpitations, Denies dyspnea, Denies dyspnea on exertion, Denies orthopnea and Denies other (loss of consciousness) Resp Denies cough, Denies dyspnea and Denies dyspnea on exertion GI Denies hematochezia and Denies change in stool character Musc Denies abnormal gait, Denies muscle weakness, Denies numbness, Denies radiating pain into limb and Denies tingling Neuro Denies Abnormal speech present, Denies abnormal gait, Denies dizziness, Denies frequent falls, Denies numbness, Denies tingling and Denies weakness Endo Denies fatigue and Denies palpitations Physical Exam Vital Signs: Last Vital Signs Pulse 93 03/19/25 09:34 BP 124/80 03/19/25 09:34 BMI result Body Mass Index 35.5 Const General: cooperative, comfortable, no acute distress, alert and awake Nutritional Appearance: overweight Orientation/consciousness: patient oriented x3 Limitations: no limitations Neck Neck: Yes trachea midline, Yes supple and Yes no JVD Chest Chest palpation & inspection: normal inspection of the chest Resp Effort & Inspection: normal respiratory effort Auscultation: clear to auscultation bilaterally Cardio Jugular venous distension: no JVD Palpation: normal PMI Rate: regular rate Rhythm: regular rhythm Heart sounds: S1 normal heart sound present, S2 normal heart sound present, no click, no gallops, no murmurs and no rubs GI Auscultation: normal bowel sounds Skin General skin exam: no rashes or lesions noted Neuro General: patient oriented x3 and no focal motor deficits Speech: No Abnormal speech present Extrem General: Yes no clubbing, cyanosis or edema and Yes other (Bilateral significant lower extremity varicosities) Psych Appearance: grossly normal Assessment & Plan Assessment & Plan (1) Enlarged thoracic aorta: Code(s): I77.89 - Other specified disorders of arteries and arterioles Category: Medical Plan: Mildly enlarged thoracic aorta which is not significantly changed. Continue aggressive medical therapy including aggressive risk factor modification. Aggressive control blood pressure is recommended. Blood pressure is currently well optimized. No surgical interventions required at this point time. Advised to avoid sudden strenuous isometric exercise. Continue statin therapy with target goal LDL less than 100 mg/dL. (2) Aortic valve calcification: Code(s): I35.9 - Nonrheumatic aortic valve disorder, unspecified Category: Medical Plan: Aortic valve sclerosis without any aortic stenosis. Continue aggressive vascular risk factor modification. Continue low-dose aspirin therapy and risk factor modifications above. (3) HTN (hypertension): Code(s): I10 - Essential (primary) hypertension Category: Medical Plan: Hypertension is currently well optimized advised to monitor blood pressure at home maintain a log. Goal blood pressure less than 130/84. Advised to monitor blood pressure at different times of the day. Low-salt diet was discussed. Importance of compliance with medication was discussed. Stress mitigation strategies was discussed encouraged to maintain activity level as tolerated. (4) Bifascicular block: Code(s): I45.2 - Bifascicular block Category: Medical Plan: Bifascicular block which is chronic. No interventions required per se for the same. Annual EKGs required. Will follow up in the clinic in 1 year's time, sooner p.r.n.. Thank you for allowing me to partake in his care Coding Level of Care Code Est Pt Level 4 (18666) Complex EM visit Add On G2211 Diagnoses Enlarged thoracic aorta I77.89 Aortic valve calcification I35.9 HTN (hypertension) I10 Bifascicular block I45.2
== END 2025-03-19 09:56 | disposition home or self-care (01) ==
LOC: HO.HCS 09:32
PROVIDERS: PCP Internal Medicine; Visit Provider Internal Medicine Cardiovascular Disease
DX: I77.89 Other specified disorders of arteries and arterioles (principal); I35.9 Nonrheumatic aortic valve disorder, unspecified; I10 Essential (primary) hypertension; I45.2 Bifascicular block
CPT/HCPCS: 99214; G2211

== ENCOUNTER → 2025-03-19 09:31 | Outpatient (BNVA) | payer MEDICARE, SELFPAY | PROVIDERS: PCP Internal Medicine; Visit Provider Internal Medicine Cardiovascular Disease | DX: I77.89 Other specified disorders of arteries and arterioles (principal); I35.9 Nonrheumatic aortic valve disorder, unspecified; I10 Essential (primary) hypertension; I45.2 Bifascicular block | CPT/HCPCS: 99212 ==

== ENCOUNTER 2025-04-08 15:05 | Outpatient (AMB) | payer MEDICARE, SELFPAY ==
--- NOTE | 2025-04-08 15:09 | A.OFFVIS_ITS ---
Vital Signs 04/08/25 15:16 Height 5 ft 11 in Weight 259 lb BMI 36.1 BP 145/89 H Blood Pressure Location Rt brachial Position Sitting Pulse 101 H Intake Visit Reasons: abnormal CT (ordered by PCP) Intake Note: Patient referred by pcp Janette Combs for abnormal abdomen pelvis CT on 03-04-2025. Patient c/o: on and off abdomen discomfort. Denies diarrhea, constipation. Distribution Analyst Required: No Accompanied by: Self / Same As Patient Allergies No Known Allergies Allergy (Verified 04/08/25 15:13) Medication List - Last Reconciled 04/08/25 by Pablo Monique MD albuterol sulfate 90 mcg/actuation (ProAir HFA) 2 puffs inhalation Q6H PRN allopurinol 300 mg PO DAILY aspirin (Adult Low Dose Aspirin) 81 mg PO DAILY atorvastatin 80 mg PO DAILY betamethasone, augmented 0.05 % 1 appl topical DAILY coenzyme Q10 (Ultra CoQ10) 75 mg PO DAILY elderberry fruit and flower 460-115 mg caps PO lisinopril 30 mg PO DAILY lorazepam 1 mg PO DAILY PRN magnesium 200 mg PO DAILY milk thistle 150 mg PO BID PRN multivitamin 1 tab PO QAM omega 8-hvb-mte-fish oil 1,200 (144-216) mg (Fish Oil) caps PO omeprazole 20 mg PO DAILY Saccharomyces boulardii (Daily Probiotic (S. boulardii)) 250 mg PO BID HPI HPI abnormal CT (ordered by PCP): Details: 75-year-old male referred for abnormal CAT scan of the abdomen. He apparently had mentioned to his primary care physician that he has had a long history of vague low-grade lower abdominal discomfort for many years. He was sent for a C AT scan of the abdomen and pelvis. This showed that the cecum was positioned close to the midline with possible cecal bascule. He was therefore referred to me He actually says that he does not have significant pain. He has good bowel movements. Denies any nausea or vomiting. [facility] Medical History (Updated 04/08/25 @ 15:29 by Pablo Monique MD) Abnormal CT scan, gastrointestinal tract Cecal bascule Aortic valve calcification Ascending aorta dilatation Varicose vein of leg Callus Lower abdominal pain Cyst of right kidney Chest discomfort Flushing Elevated urine levels of catecholamines Symptomatic varicose veins of both lower extremities Hyperlipidemia HTN (hypertension) CVA (cerebral vascular accident) Asthma Anxiety Surgical History Hx of surgical procedure History of colonoscopy (~09/26/19) No history of previous surgery Family History Mother No known health problems Father Aneurysm High blood pressure Social History Housing: House Alcohol intake: current Alcohol intake frequency: 0-2 drinks per day Alcohol type: wine Patient Tobacco Use Status: Former Tobacco user service: No Current occupational status: retired Cognitive needs: No Hearing needs: No Vision needs: Yes (rx glasses) Review of Systems Const Denies chills and Denies fever(s) Card Denies chest pain, Denies dyspnea and Denies dyspnea on exertion Resp Denies cough, Denies dyspnea and Denies dyspnea on exertion GI Denies hematochezia and Denies change in bowel habits Denies hematuria and Denies difficulty urinating Musc Denies back pain and Denies limited range of motion Neuro Denies focal weakness and Denies convulsions Psych Denies depression and Denies mood swings Physical Exam Vital Signs: Last Vital Signs Pulse 101 H 04/08/25 15:16 BP 145/89 H 04/08/25 15:16 BMI result Body Mass Index 36.1 Const General: comfortable and no acute distress Orientation/consciousness: patient oriented x3 Neck Neck: Yes no lymphadenopathy Resp Auscultation: clear to auscultation bilaterally Cardio Rhythm: regular rhythm GI Palpation (GI): Soft to palpation, nontender and no guarding Neuro General: patient oriented x3 Assessment & Plan Assessment & Plan (1) Abnormal CT scan, gastrointestinal tract: Code(s): R93.3 - Abnormal findings on diagnostic imaging of other parts of digestive tract Category: Medical Plan: His CAT scan showed that the cecum maybe close to the midline suggestive of a cecal bascule. He denies any problems that suggest cecal bascule at this time. This would present as a volvulus of the area with obstruction, severe pain, vomiting. He has a very benign exam and and I am uncertain if this finding CAT scan is clinically significant I did tell him that he may be due for a colonoscopy as well so it should be good to confirm this with his primary care physician. I told him that if he does have problems with abdomen including pain, vomiting, severe constipation and obstipation, he should either see me again in the office or go to the emergency room. He seems to be understanding of the plan. Coding Level of Care Code New Pt Level 3 (34790) Diagnoses Abnormal CT scan, gastrointestinal tract R93.3
[2025-04-08 15:16] VITALS: BP 145/89; PULSE 101; BMI 36.1
== END 2025-04-08 15:24 | disposition home or self-care (01) ==
LOC: HO.HGS 15:06
PROVIDERS: PCP Internal Medicine; Referring Provider Physician Assistant Medical; Visit Provider Surgery
DX: R93.3 Abnormal findings on diagnostic imaging of other parts of digestive tract (principal)
CPT/HCPCS: 99203

== ENCOUNTER → 2025-04-08 15:05 | Outpatient (BNVA) | payer MEDICARE, SELFPAY | PROVIDERS: PCP Internal Medicine; Referring Provider Physician Assistant Medical; Visit Provider Surgery | DX: R93.3 Abnormal findings on diagnostic imaging of other parts of digestive tract (principal) | CPT/HCPCS: 99202 ==

== ENCOUNTER 2025-08-03 09:31 | Outpatient (AMB) | payer MEDICARE, SELFPAY ==
[2025-08-03 09:41] VITALS: BP 135/78; PULSE 92; RESP 14; TEMP 36.6; O2SAT 96; BMI 36.2
--- NOTE | 2025-08-03 09:41 | MHC.PC.OV ---
Vital Signs 08/03/25 09:41 Height 5 ft 11.5 in Weight 263 lb BMI 36.2 BP 135/78 Blood Pressure Location Rt brachial Respiration 14 Pulse 92 Pulse Source Pulse Oximeter Temp 97.9 F Temp Source Temporal Artery Scan Pulse Oximetry (%) 96 Oxygen Delivery Method Room Air Intake Visit Reasons: 6 month follow up - see comments Field Services Manager Required: No Accompanied by: Self / Same As Patient Allergies No Known Allergies Allergy (Verified 08/03/25 10:29) Medication List - Last Reconciled 08/03/25 by Janette Combs PA-C albuterol sulfate 90 mcg/actuation (ProAir HFA) 2 puffs inhalation Q6H PRN allopurinol 300 mg PO DAILY aspirin (Adult Low Dose Aspirin) 81 mg PO DAILY atorvastatin 80 mg PO DAILY betamethasone, augmented 0.05 % 1 appl topical DAILY coenzyme Q10 (Ultra CoQ10) 75 mg PO DAILY elderberry fruit and flower 460-115 mg caps PO lisinopril 30 mg PO DAILY lorazepam 1 mg PO DAILY PRN magnesium 200 mg PO DAILY milk thistle 150 mg PO BID PRN multivitamin 1 tab PO QAM omega 4-ykh-jls-fish oil 1,200 (144-216) mg (Fish Oil) caps PO omeprazole 20 mg PO DAILY Saccharomyces boulardii (Daily Probiotic (S. boulardii)) 250 mg PO BID Tobacco use date assessed: 02/09/25 Dental Screening Dental Screen Date: 01/07/25 HPI 6 month follow up - see comments HPI Details The patient is a 75-year-old male presenting for a three-month follow-up visit and to discuss recent onset of fatigue, anxiety, and poor sleep. He reports some shortness of breath with walking. His poor sleep is attributed to waking 2-3 times per night to urinate and GERD symptoms when he forgets to take his omeprazole. He denies chest pain. The patient follows with cardiology for moderate aortic valve calcification, mild dilation of the ascending aorta, and mild dilation of the aortic arch, with an ejection fraction of 60% noted on a prior echocardiogram. A stress test this year was normal. Cardiology recommendations include aggressive blood pressure control, continuing statin therapy and low-dose aspirin, and avoiding sudden strenuous exercise. His next cardiology follow-up is scheduled for March 2026. For hypertension, he takes lisinopril 30 mg and monitors his blood pressure at home, reporting a recent morning reading of 137/80 mmHg and a nighttime reading of 97/60 mmHg. He has a history of varicose veins and had a prior procedure years ago. He is scheduled for a leg ultrasound, as well as appointments with neurology and urology in August. Social History - Exercise: The patient reports walking one or two miles per day. - Mental Health: He reports experiencing anxiety related to getting older and about medical appointments. [facility]LY [facility], [facility] Medical History (Updated 08/03/25 @ 10:38 by Janette Combs PA-C) Prediabetes Healthcare maintenance Insomnia Sleep apnea Fatigue Abnormal CT scan, gastrointestinal tract Cecal bascule Aortic valve calcification Ascending aorta dilatation Varicose vein of leg Callus Lower abdominal pain Cyst of right kidney Chest discomfort Flushing Elevated urine levels of catecholamines Symptomatic varicose veins of both lower extremities Hyperlipidemia HTN (hypertension) CVA (cerebral vascular accident) Asthma Anxiety Surgical History Hx of surgical procedure History of colonoscopy (~09/26/19) No history of previous surgery Family History Mother No known health problems Father Aneurysm High blood pressure Social History Housing: House Alcohol intake: current Alcohol intake frequency: 0-2 drinks per day Alcohol type: wine Patient Tobacco Use Status: Former Tobacco user service: No Current occupational status: retired Cognitive needs: No Hearing needs: No Vision needs: Yes (rx glasses) Questionnaire PHQ-9 Over the last 2 weeks, how often have you been bothered by any of the following problems? 1. Little interest or pleasure in doing things: not at all 2. Feeling down, depressed, or hopeless: not at all 3. Trouble falling or staying asleep, or sleeping too much: not at all 4. Feeling tired or having little energy: not at all 5. Poor appetite or overeating: not at all 6. Feeling bad about yourself - or that you are a failure or have let yourself or your family down: not at all 7. Trouble concentrating on things, such as reading the newspaper or watching television: not at all 8. Moving or speaking so slowly that other people could have noticed. Or the opposite - being so fidgety or restless that you have been moving around a lot more than usual: not at all 9. Thoughts that you would be better off or of hurting yourself in some way: not at all Total score: 0 Depression Screening Interpretation: Negative Depression Screening Done: Yes 11213 - PHQ-9 Billing: Yes Source: Developed by Drs. Berto Castro, Noemi Romero, Louie Guzman and colleagues, with an educational ben from [employer]. Thrive Questionnaire Date Thrive assessed: 01/07/25 I am a: Patient What is your living situation today?: I have a steady place to live Within the past 12 months, did the food you bought not last and you didn't have the money to get more?: Never true Within the past 12 months, did you worry whether your food would run out before you got money to buy more?: Never true Do you have trouble paying for medicines?: No Do you have trouble getting transportation to medical appointments?: No Do you have trouble paying your heating and electricity bill?: No Do you have trouble taking care of your child, family member or friend?: No Do you have trouble with day-to-day activities such as bathing, preparing meals, shopping, managing finances, etc.?: No Are you currently unemployed and looking for a job?: No Are you interested in more education?: Yes THRIVE Score: 0 AUDIT C Alcohol Use Questionnaire (AUDIT-C) 1. How often do you have a drink containing alcohol?: 4 or more times a week 2. How many drinks containing alcohol do you have on a typical day when you are drinking?: 3 or 4 3. How often do you have six or more drinks on one occasion?: Never Total Score: 5 Score Reviewed/Action Taken: No (pt declines help to quit ) MATT-7 AMB Questionnaire MATT-7 Date MATT - 7 assessed: 01/07/25 Feeling nervous, anxious, or on edge: 1 = Several days Not being able to stop or control worryin = Several days Worrying too much about different things: 1 = Several days Trouble relaxin = Several days Being so restless that it is hard to sit still: 0 = Not at all Becoming easily annoyed or irritable: 1 = Several days Feeling afraid as if something awful might happen: 1 = Several days Total MATT-7 score (0-4 normal; 5-9 mild; 10-14 moderate; 15-21 severe): 6 Source: Developed by Drs. Berto Castro, Noemi Romero, Louie Guzman and colleagues, with an educational ben from [employer]. MATT-7 Assessment Billing MATT-7 Assessment Tool: MATT-7 Assessment 45969 Review of Systems Const Details: - Constitutional: Reports fatigue. - Psychiatric: Reports increased anxiety and poor sleep. - Cardiovascular: Denies chest pain. - Respiratory: Reports mild shortness of breath with activity. - Gastrointestinal: Reports acid reflux, which can wake him from sleep if he misses his medication. - Genitourinary: Reports nocturia, getting up to urinate two or three times per night. All systems reviewed & are unremarkable except as noted in HPI and below Physical exam (Primary Care) Vital Signs: Last Vital Signs Temp 97.9 F 08/03/25 09:41 Pulse 92 08/03/25 09:41 Resp 14 08/03/25 09:41 BP 154/87 H 08/03/25 09:41 Pulse Ox 96 08/03/25 09:41 Oxygen Delivery Method Room Air 08/03/25 09:41 Care Plan Goal for BP management: <140/90 at Goal BMI result Body Mass Index 36.2 BMI Assessment/Plan discussion: High BMI High, discussed plan: lifestyle, weight reduction, dietary, physical activity, alcohol moderation and other Tobacco/Smoking Status: Tobacco use Status Tobacco use date assessed 02/09/25 08/03/25 09:48 Patient Tobacco Use Status Former Tobacco user 08/03/25 09:48 PHQ-9: PHQ-9 Score PHQ-9: Total score 0 08/03/25 10:17 Depression Screening Interpretation: Negative Thrive Assessment: Date of Thrive Assessment Date Thrive assessed 01/07/25 08/03/25 09:48 Const Other: Appearance: Alert. Oriented X3. No acute distress. Head: Normal external exam. Normocephalic. Atraumatic. Eyes: Pupils are equal, round, and reactive to light. Extraocular movements intact. Conjunctiva and sclera normal. Eyelids normal. Throat: Pharynx normal. Uvula midline. Moist mucous membranes. Neck: Normal inspection. Neck supple. Full range of motion. Cardiovascular: Normal heart rate and rhythm. Heart sound normal. Murmur noted from aortic calcification. Pulses normal throughout. Respiratory: No respiratory distress. Painless inspiration. Breath sounds normal. No wheezes/rales/rhonchi noted. No accessory muscle usage noted or decreased air movement noted. Back: Full range of motion noted. Skin: Skin warm and dry. Normal skin color. Extremities: No lower extremity edema. Extremities exhibit normal range of motion. Results AMB Hemoglobin A1c AMB Hemoglobin A1c 6.0 % Last Edit by CATHLEEN Quiñones on 08/03/25 10:18 Results Reviewed Results Reviewed: Laboratory Last Values Hgb A1c (Clinic) 6.0 % (4.0-6.0) 08/03/25 10:16 - Labs: - Ovmpi-lt-rkjh Hemoglobin A1c: 6.0%. - Tests and Diagnostics: - Past Stress Test (current year): Normal. - Past Echocardiogram: Ejection fraction of 60%, moderate aortic valve calcification, mild dilation of the ascending aorta, and mild dilation of the aortic arch. Coding Level of Care Code Est Pt Level 4 (28142) Complex EM visit Add On G2211 Diagnoses Fatigue R53.83 Insomnia G47.00 Anxiety F41.9 HTN (hypertension) I10 Healthcare maintenance Z00.00 Symptomatic varicose veins of both lower extremities I83.893 Prediabetes R73.03 Additional Codes MATT-7 Assessment Billing - MATT-7 Assessment Tool: MATT-7 Assessment 76159 ([id number]) PHQ-9 - 79531 - PHQ-9 Billing: Yes ([id number]) Time Spent (min) 60 Assessment & Plan Assessment & Plan (1) Fatigue: Code(s): R53.83 - Other fatigue Category: Medical Plan: The patient's fatigue is likely multifactorial, with contributions from poor sleep secondary to nocturia and GERD. Obstructive sleep apnea is considered a differential diagnosis. A home sleep study will be ordered to investigate for sleep apnea. (2) Insomnia: Code(s): G47.00 - Insomnia, unspecified Category: Medical Plan: The patient's fatigue is likely multifactorial, with contributions from poor sleep secondary to nocturia and GERD. Obstructive sleep apnea is considered a differential diagnosis. A home sleep study will be ordered to investigate for sleep apnea. (3) Anxiety: Code(s): F41.9 - Anxiety disorder, unspecified Category: Medical Plan: The patient reports increased anxiety and requests an increase in his lorazepam prescription from 30 tablets per month to have a reserve for stressful situations like medical appointments. The plan is to increase his prescription to 34 tablets per month. He was instructed to call one week before his refill is due to have the updated prescription sent. (4) HTN (hypertension): Code(s): I10 - Essential (primary) hypertension Category: Medical Plan: The patient's blood pressure is managed with lisinopril 30 mg daily. His in-office blood pressure was 135/78 mmHg after a period of rest. He will continue his current medication regimen and home blood pressure monitoring. (5) Healthcare maintenance: Code(s): Z00.00 - Encounter for general adult medical examination without abnormal findings Category: Medical Plan: The patient is due for routine lab work. Orders were placed for a PSA, vitamin B12, vitamin D, and magnesium levels. The patient was advised that these labs are non-fasting and can be done at his convenience. A follow-up is scheduled in six months. (6) Symptomatic varicose veins of both lower extremities: Code(s): I83.893 - Varicose veins of bilateral lower extremities with other complications Category: Medical Plan: The patient has a history of varicose veins and an upcoming ultrasound scheduled. (7) Prediabetes: Code(s): R73.03 - Prediabetes Category: Medical Plan: A hyjtb-xn-mjcz hemoglobin A1c was 6.0%, indicating prediabetes. The patient was advised to decrease his sugar intake. Plan Plan Patient was informed and verbally consented to the use of an ambient scribe for clinic note documentation during this visit. 1. Fatigue And Insomnia The patient's fatigue is likely multifactorial, with contributions from poor sleep secondary to nocturia and GERD. Obstructive sleep apnea is considered a differential diagnosis. A home sleep study will be ordered to investigate for sleep apnea. 2. Anxiety The patient reports increased anxiety and requests an increase in his lorazepam prescription from 30 tablets per month to have a reserve for stressful situations like medical appointments. The plan is to increase his prescription to 34 tablets per month. He was instructed to call one week before his refill is due to have the updated prescription sent. 3. Prediabetes A xvoud-iz-lppj hemoglobin A1c was 6.0%, indicating prediabetes. The patient was advised to decrease his sugar intake. 4. Essential Hypertension The patient's blood pressure is managed with lisinopril 30 mg daily. His in-office blood pressure was 135/78 mmHg after a period of rest. He will continue his current medication regimen and home blood pressure monitoring. 5. Health Maintenance The patient is due for routine lab work. Orders were placed for a PSA, vitamin B12, vitamin D, and magnesium levels. The patient was advised that these labs are non-fasting and can be done at his convenience. A follow-up is scheduled in six months. 6. Varicose Veins Of Lower Extremities The patient has a history of varicose veins and an upcoming ultrasound scheduled. I discussed the patient's new-onset fatigue and poor sleep. I explained that after ruling out cardiac causes, we should investigate for sleep apnea and will order a home sleep study, which involves a machine he can use at home. We reviewed his cdoaj-ri-ghlh A1c result of 6.0%, and I explained that this places him in the prediabetic category, advising him to decrease his sugar intake. I addressed his request for an increase in his lorazepam prescription due to anxiety surrounding medical appointments. I agreed to increase his monthly quantity to 34 tablets and instructed him to call a week before his next refill is due so the new prescription can be sent. I advised him that since his varicose veins are not causing symptoms like pain or swelling, and his legs look good on exam he can speak to the vascular surgeon about an ear interventions if necessary. I informed him that I have ordered blood work for PSA, Vitamin B12, Vitamin D, and magnesium, and that he can go to the lab to have this done at his convenience. We will follow up in six months. Orders: Orders RT home sleep study Today G47.30 - Sleep apnea, unspecified, R53.83 - Other fatigue Magnesium Today Z00.00 - Encounter for general adult medical examination without abnormal findings PSA,Total (Free>4and<10) Today Z00.00 - Encounter for general adult medical examination without abnormal findings AMB Hemoglobin A1c Today Z13.9 - Encounter for screening, unspecified Vitamin D 25-OH Total Today Z00.00 - Encounter for general adult medical examination without abnormal findings Vitamin B12 and Folate Today Z00.00 - Encounter for general adult medical examination without abnormal findings Patient Instructions: - Your Hemoglobin A1c result is 6.0%, which means you have prediabetes. - Please work on reducing your sugar intake. - We are ordering a home sleep study to check if you have sleep apnea, which could be causing your fatigue. - Someone from the sleep lab will call you to set this up. - Your lorazepam prescription will be increased to 34 tablets per month. - Please call our office about a week before your next refill is due to remind us to send the new prescription. - Please go to the laboratory to have blood work done. - The tests ordered are PSA, Vitamin B12, Vitamin D, and magnesium. - You do not need to fast for these tests. - Since your varicose veins are not causing you pain or swelling, it is recommended that you speak to the vascular surgeon about procedures if indicated.. - Continue taking all your current medications as prescribed. - Please schedule a follow-up appointment for six months from now.
== END 2025-08-03 10:20 | disposition home or self-care (01) ==
LOC: HO.HMCSH 09:31
PROVIDERS: PCP Physician Assistant Medical; Visit Provider Physician Assistant Medical
DX: R53.83 Other fatigue (principal); G47.00 Insomnia, unspecified; F41.9 Anxiety disorder, unspecified; I10 Essential (primary) hypertension; Z00.00 Encounter for general adult medical examination without abnormal findings; I83.893 Varicose veins of bilateral lower extremities with other complications; R73.03 Prediabetes; Z13.9 Encounter for screening, unspecified

== ENCOUNTER → 2025-08-03 09:31 | Outpatient (BNVA) | payer MEDICARE, SELFPAY | PROVIDERS: PCP Internal Medicine; Visit Provider Physician Assistant Medical | DX: I10 Essential (primary) hypertension (principal); R06.02 Shortness of breath; R53.83 Other fatigue; G47.00 Insomnia, unspecified; F41.9 Anxiety disorder, unspecified; R73.03 Prediabetes; I83.893 Varicose veins of bilateral lower extremities with other complications; Z13.31 Encounter for screening for depression; Z13.39 Encounter for screening examination for other mental health and behavioral disorders | CPT/HCPCS: 83036; 96127; 99212 ==

== ENCOUNTER 2025-09-09 09:46 | Outpatient (AMB) | payer MEDICARE, SELFPAY ==
--- NOTE | 2025-09-09 09:52 | A.OFFVIS_ITS ---
Intake Visit Reasons: 6M TIA Allergies No Known Allergies Allergy (Verified 09/09/25 09:59) Medication List - Last Reconciled 09/09/25 by Emma Paniagua CNP albuterol sulfate 90 mcg/actuation (ProAir HFA) 2 puffs inhalation Q6H PRN allopurinol 300 mg PO DAILY aspirin (Adult Low Dose Aspirin) 81 mg PO DAILY atorvastatin 80 mg PO DAILY betamethasone, augmented 0.05 % 1 appl topical DAILY coenzyme Q10 (Ultra CoQ10) 75 mg PO DAILY elderberry fruit and flower 460-115 mg caps PO lisinopril 30 mg PO DAILY lorazepam 1 mg PO BEDTIME PRN magnesium 200 mg PO DAILY milk thistle 150 mg PO BID PRN multivitamin 1 tab PO QAM omega 7-fey-tcy-fish oil 1,200 (144-216) mg (Fish Oil) caps PO omeprazole 20 mg PO DAILY Saccharomyces boulardii (Daily Probiotic (S. boulardii)) 250 mg PO BID HPI Comments Details: He was doing okay. No new TIA or stroke-like symptoms. No further speech problems. Memory was stable, long-term memory seemed better than short term. Few, infrequent mild headaches that resolve without intervention. No dizziness. Balance was okay, no falls. Exercising and going for walks. He noted some shortness of breath, particularly when walking up hill. He also has been having some swelling in lower legs for last 6 months or so. He has varicose veins, and apparently was supposed to have some procedure done but decided against it. Sleep was up and down, and has sleep study scheduled for 10/2025. He felt that he was sweating more. He c/o night sweats, hot flashes, and flushing, was seen by endocrinology with apparently negative work up. Had episode in 2021 while in a store where his speech suddenly became scrambled and he was not making any sense. It lasted about a minute and resolved. A similar event happened 20+ years ago, but nothing in between. Since then, he has felt a little nervous about walking. He has also had some short-term memory issues since then. 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 [facility] Medical History (Updated 09/09/25 @ 09:59 by Emma Paniagua CNP) Prediabetes Healthcare maintenance Insomnia Sleep apnea Fatigue Abnormal CT scan, gastrointestinal tract Cecal bascule Aortic valve calcification Ascending aorta dilatation Varicose vein of leg Callus Lower abdominal pain Cyst of right kidney Chest discomfort Flushing Elevated urine levels of catecholamines Symptomatic varicose veins of both lower extremities Hyperlipidemia HTN (hypertension) CVA (cerebral vascular accident) Asthma Anxiety Surgical History Hx of surgical procedure History of colonoscopy (~09/26/19) No history of previous surgery Family History Mother No known health problems Father Aneurysm High blood pressure Social History Housing: House Alcohol intake: current Alcohol intake frequency: 0-2 drinks per day Alcohol type: wine Patient Tobacco Use Status: Former Tobacco user service: No Current occupational status: retired Cognitive needs: No Hearing needs: No Vision needs: Yes (rx glasses) Review of Systems Const Denies chills, Denies daytime sleepiness, Reports difficulty sleeping, Denies fatigue, Denies fever(s), Denies frequent falls, Reports headache(s), Denies increased appetite, Denies poor appetite, Denies snoring, Denies weakness, Denies weight gain and Denies weight loss Eyes Denies loss of vision ENT Denies vertigo, Denies dizziness, Reports headache(s) and Denies neck pain Card Denies chest pain at rest, Denies chest pain with activity, Denies syncope, Reports leg edema, Denies palpitations, Denies dyspnea and Reports dyspnea on exertion Resp Denies cough, Denies dyspnea, Reports dyspnea on exertion and Denies snoring GI Denies abdominal pain, Denies constipation, Reports heartburn, Denies diarrhea and Denies nausea Denies urinary frequency, Denies urinary incontinence and Denies urinary urgency Musc Denies abnormal gait, Denies back pain, Denies myalgias, Denies arthralgias, Denies neck pain, Denies numbness and Denies tingling Neuro Denies abnormal gait, Denies vertigo, Denies dizziness, Denies syncope, Denies frequent falls, Reports headache(s), Denies lack of coordination, Denies loss of vision, Reports memory loss, Denies numbness, Denies Other visual disturbances, Denies restless legs, Denies seizure-like activity, Denies tingling, Denies paresthesias, Denies tremor(s) and Denies weakness Psych Reports anxiety, Denies depression, Denies auditory hallucinations, Reports memory loss and Denies visual hallucinations Endo Denies fatigue and Denies palpitations Physical Exam Const Other: General Appearance:? normal, in no acute distress. Heart:? S1, S2 normal, no murmurs. Lungs:? clear anteriorly and posteriorly. Musculoskeletal:? normal. Extremities:? no edema. Psych:? alert, oriented, cognitive function intact, cooperative with exam. Neuro Other: Abnormal Neurological Findings:?none.? Mental Status: alert and oriented X 3. Normal attention, orientation, memory, and affect. Cranial Nerves: Pupils are equal, round, and reactive to light. External ocular muscles are intact. Visual judd are full, no ptosis. Face is symmetrical, no facial weakness or droop. Facial sensations are normal. Tongue protrudes in midline. Palate elevates symmetrically. Shoulder shrugging is normal Motor Examination: Normal muscle tone, bulk and strength. No atrophy or fasciculations. No drift of the extended upper extremities. DTR 2+. Plantars are flexor. Sensory Exam: Normal light touch, temperature, pinprick, vibration, and joint- position sensations. Rhomberg sign is absent. Coordination: No ataxia. No titubation. Gait Exam: Within normal limits. Cerebellar Signs: Rbngpr-no-bbku is okay. Extrapyramidal System: No tremor, rigidity with normal facial expressions. No bradykinesia. No bradyphrenia. Normal arm swing and posture. No propulsion or retropulsion. Speech: Normal. 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 12/01/2021 EEG- WN 01/2024 Echocardiogram normal. Assessment & Plan Assessment & Plan (1) History of TIA (transient ischemic attack): Code(s): Z86.73 - Personal history of transient ischemic attack (TIA), and cerebral infarction without residual deficits Category: Medical (2) History of stroke: Code(s): Z86.73 - Personal history of transient ischemic attack (TIA), and cerebral infarction without residual deficits Category: Medical Plan Continue low dose aspirin and statin. Control blood pressure. Stay physically active. It appeared that he had ultrasound of BLE ordered, but was not done yet. He was encouraged to follow up with PCP and cardiology for shortness of breath and lower leg swelling, ER precautions reviewed. Follow up in 6 months or sooner as needed. Coding Level of Care Code Est Pt Level 3 (22195) Diagnoses History of TIA (transient ischemic attack) Z86.73 History of stroke Z86.73
== END 2025-09-09 10:14 | disposition home or self-care (01) ==
LOC: HO.HSM 09:47
PROVIDERS: PCP Internal Medicine; Referring Provider Internal Medicine; Visit Provider Registered Nurse
DX: Z86.73 Personal history of transient ischemic attack (TIA), and cerebral infarction without residual deficits (principal)
CPT/HCPCS: 99213

== ENCOUNTER 2025-09-09 09:46 | Outpatient (REF) | payer MEDICARE, SELFPAY ==
--- NOTE | ~2025-09-09 | XR_ITS ---
EXAMINATION: XR CHEST 2 VIEWS HISTORY: M79.89 - Other specified soft tissue disorders COMPARISON: Comparison is made with the prior examination dated 09/16/2021. FINDINGS: PA and lateral views of the chest are submitted. The lungs are expanded and clear. There is no pleural effusion, pneumothorax, or pulmonary vascular congestion. The heart is normal in size. There is mild degenerative disc disease of the spine. XR/XR chest 2V IMPRESSION: No acute cardiopulmonary abnormality. Electronically signed by: Berto Rosas MD 09/09/2025 01:55 PM EST
[2025-09-09 11:57] LABS: PSA,Total (Free>4and<10) 4.56 ng/mL (0.00-4.00)
[2025-09-09 12:10] LABS: Magnesium 1.4 mg/dL (1.6-2.6)
[2025-09-09 12:11] LABS: Folate 11.8 ng/mL (> or = 4.0); Vitamin B12 277 pg/mL (200-900)
--- NOTE | 2025-09-09 13:25 | ECG_ITS ---
Test Reason : SOFT TISSUE DISORDER Blood Pressure : */* mmHG Vent. Rate : 80 BPM Atrial Rate : 80 BPM P-R Int : 152 ms QRS Dur : 126 ms QT Int : 368 ms P-R-T Axes : 42 -22 55 degrees QTcB Int : 424 ms Normal sinus rhythm Right bundle branch block Abnormal ECG When compared with ECG of 06-Feb-2025 08:35, Premature supraventricular complexes are no longer Present Referred By: Janette Combs Electronically Signed By: KISHOR BELLO MD
[2025-09-09 13:32] LABS: Hematocrit 43.5 % (42.0-52.0); Hemoglobin 14.9 g/dl (14.0-18.0); Red Blood Count 4.44 X10*6/uL (4.60-5.80); White Blood Count 5.9 X10*3/uL (4.8-10.8)
[2025-09-09 13:33] LABS: Mean Corpuscular HGB Conc 34.3 g/dl (31.0-36.0); Mean Corpuscular Hemoglobin 33.6 pg (27.0-33.0); Mean Corpuscular Volume 98.0 fL (80.0-98.0); NRBC Abs Auto 0.000 X10*3/uL (0.0-0.012); NRBC Pct Auto 0.0 /100WBC (0.0-0.2); Platelet Count 249 X10*3/uL (160-400)
[2025-09-09 14:44] LABS: Anion Gap 13 (12-20); Blood Urea Nitrogen 20 mg/dL (9-16); Calcium 9.8 mg/dL (8.4-10.2); Carbon Dioxide 25 mmol/L (22-29); Chloride 105 mmol/L (96-108); Estimated Glomerular Filt Rate > 60; Magnesium 1.5 mg/dL (1.6-2.6); Potassium 4.1 mmol/L (3.3-5.1); Sodium 139 mmol/L (135-145)
[2025-09-09 15:06] LABS: NT Pro B Type Natriuretic Pept 39.1 pg/mL (<300)
[2025-09-10 12:29] LABS: Free Prostate Spec Ag 1.1 ng/mL; Percent Free Prostate Spec Ag 23 % (calc) (>25)
== END 2025-09-09 09:47 | disposition home or self-care (01) ==
LOC: HO.LAB 09:46
PROVIDERS: Absent Provider Physician Assistant Medical; PCP Internal Medicine; Referring Provider Internal Medicine; Visit Provider Registered Nurse
DX: M79.89 Other specified soft tissue disorders (principal); Z00.00 Encounter for general adult medical examination without abnormal findings; Z86.73 Personal history of transient ischemic attack (TIA), and cerebral infarction without residual deficits; Z12.5 Encounter for screening for malignant neoplasm of prostate; Z13.21 Encounter for screening for nutritional disorder; Z79.82 Long term (current) use of aspirin
CPT/HCPCS: 36415; 71046; 80048; 82306; 82607; 82746; 83735; 83880; 84153; 84154; 85027; 93005; 99212

== ENCOUNTER → 2025-09-09 13:25 | Outpatient (BNV) | payer MEDICARE, SELFPAY | PROVIDERS: Absent Provider Physician Assistant Medical; PCP Internal Medicine; Referring Provider Internal Medicine; Visit Provider Internal Medicine Cardiovascular Disease | DX: I45.10 Unspecified right bundle-branch block (principal) | CPT/HCPCS: 93010 ==

== ENCOUNTER → 2025-09-09 13:33 | Outpatient (BNV) | payer MEDICARE, SELFPAY | PROVIDERS: Absent Provider Physician Assistant Medical; PCP Internal Medicine; Referring Provider Internal Medicine; Visit Provider Radiology Diagnostic Radiology | DX: M79.89 Other specified soft tissue disorders (principal) | CPT/HCPCS: 71046 ==

== ENCOUNTER 2025-09-21 10:01 | Outpatient (AMB) | payer MEDICARE, SELFPAY ==
[2025-09-21 10:04] VITALS: BP 110/73; PULSE 100; RESP 16; TEMP 36.4; O2SAT 96; BMI 35.8
--- NOTE | 2025-09-21 10:04 | A.OFFPC_ITS ---
Vital Signs 09/21/25 10:04 Height 5 ft 11.5 in Weight 260 lb BMI 35.8 BP 110/73 Blood Pressure Location Rt brachial Position Sitting Respiration 16 Pulse 100 Pulse Source Pulse Oximeter Temp 97.6 F Temp Source Temporal Artery Scan Pulse Oximetry (%) 96 Oxygen Delivery Method Room Air Intake Visit Reasons: Follow up low magnesium, leg swelling, SOB Integration Technician Required: No Accompanied by: Self / Same As Patient Allergies No Known Allergies Allergy (Verified 09/21/25 10:04) Tobacco use date assessed: 02/09/25 Dental Screening Dental Screen Date: 01/07/25 HPI HPI Comments History of Present Illness Details History of Present Illness - The patient is a 75-year-old male pres enting for evaluation of bilateral foot swelling. - He notes the swelling does not interfe re with daily activities such as walking or climbing stairs, though he experiences occasional shortness of breath, which is unchanged from his baseline. - He was recently started on furosemide for the swelling, but he reports that it has not been effective and causes fatigue. - The swelling is attributed to varicose veins. - His chronic conditions include gout, f or which he takes allopurinol daily, and he has not had any recent gout attacks. - His other medications include a statin , lisinopril, lorazepam, a multivitamin, and omeprazole. - He does not use his prescribed inhaler . - Lab work from September 09 showed a l ow magnesium level. - He reports he was previously taking a magnesium supplement but had stopped for a while. 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 - Family Status: [place] and [place] his daughter for holidays. Results - Labs (from September 09): Magnesium l evel was noted to be low. [facility] Medical History Peripheral edema Dyspnea Hypomagnesemia Leg swelling Prediabetes Healthcare maintenance Insomnia Sleep apnea Fatigue Abnormal CT scan, gastrointestinal tract Cecal bascule Aortic valve calcification Ascending aorta dilatation Varicose vein of leg Callus Lower abdominal pain Cyst of right kidney Chest discomfort Flushing Elevated urine levels of catecholamines Symptomatic varicose veins of both lower extremities Hyperlipidemia HTN (hypertension) CVA (cerebral vascular accident) Asthma Anxiety Surgical History Hx of surgical procedure History of colonoscopy (~09/26/19) No history of previous surgery Family History Mother No known health problems Father Aneurysm High blood pressure Social History Housing: House Alcohol intake: current Alcohol intake frequency: 0-2 drinks per day Alcohol type: wine Patient Tobacco Use Status: Former Tobacco user service: No Current occupational status: retired Cognitive needs: No Hearing needs: No Vision needs: Yes (rx glasses) Questionnaire PHQ-9 Over the last 2 weeks, how often have you been bothered by any of the following problems? 1. Little interest or pleasure in doing things: not at all 2. Feeling down, depressed, or hopeless: not at all 3. Trouble falling or staying asleep, or sleeping too much: not at all 4. Feeling tired or having little energy: not at all 5. Poor appetite or overeating: not at all 6. Feeling bad about yourself - or that you are a failure or have let yourself or your family down: not at all 7. Trouble concentrating on things, such as reading the newspaper or watching television: not at all 8. Moving or speaking so slowly that other people could have noticed. Or the opposite - being so fidgety or restless that you have been moving around a lot more than usual: not at all 9. Thoughts that you would be better off or of hurting yourself in some way: not at all Total score: 0 Depression Screening Interpretation: Negative Depression Screening Done: Yes 70547 - PHQ-9 Billing: Yes Source: Developed by Drs. Berto Castro, Noemi Romero, Louie Guzman and colleagues, with an educational ben from [employer]. Thrive Questionnaire Date Thrive assessed: 01/07/25 I am a: Patient What is your living situation today?: I have a steady place to live Within the past 12 months, did the food you bought not last and you didn't have the money to get more?: Never true Within the past 12 months, did you worry whether your food would run out before you got money to buy more?: Never true Do you have trouble paying for medicines?: No Do you have trouble getting transportation to medical appointments?: No Do you have trouble paying your heating and electricity bill?: No Do you have trouble taking care of your child, family member or friend?: No Do you have trouble with day-to-day activities such as bathing, preparing meals, shopping, managing finances, etc.?: No Are you currently unemployed and looking for a job?: No Are you interested in more education?: Yes THRIVE Score: 0 AUDIT C Alcohol Use Questionnaire (AUDIT-C) 1. How often do you have a drink containing alcohol?: 4 or more times a week 2. How many drinks containing alcohol do you have on a typical day when you are drinking?: 3 or 4 3. How often do you have six or more drinks on one occasion?: Never Total Score: 5 Score Reviewed/Action Taken: No (pt declines help to quit ) MATT-7 AMB Questionnaire MATT-7 Date MATT - 7 assessed: 01/07/25 Feeling nervous, anxious, or on edge: 1 = Several days Not being able to stop or control worryin = Several days Worrying too much about different things: 1 = Several days Trouble relaxin = Several days Being so restless that it is hard to sit still: 0 = Not at all Becoming easily annoyed or irritable: 1 = Several days Feeling afraid as if something awful might happen: 1 = Several days Total MATT-7 score (0-4 normal; 5-9 mild; 10-14 moderate; 15-21 severe): 6 Source: Developed by Drs. Berto Castro, Noemi Romero, Louie Guzman and colleagues, with an educational ben from [employer]. MATT-7 Assessment Billing MATT-7 Assessment Tool: MATT-7 Assessment 27580 Review of Systems Narrative Review of Systems - General: Reports fatigue secondary to furosemide use. - Respiratory: Reports occasional, stable dyspnea. - Lower Extremities: Reports bilateral pedal edema. - Musculoskeletal: Denies any recent gout attacks. - Integumentary: Reports itching and a sore on his foot that has been present for years. - Neurological: Reports an occasional twinge in his foot. Physical exam (Primary Care) Vital Signs: Last Vital Signs Temp 97.6 F 09/21/25 10:04 Pulse 100 09/21/25 10:04 Resp 16 09/21/25 10:04 BP 110/73 09/21/25 10:04 Pulse Ox 96 09/21/25 10:04 Oxygen Delivery Method Room Air 09/21/25 10:04 BMI result Body Mass Index 35.8 Tobacco/Smoking Status: Tobacco use Status Tobacco use date assessed 02/09/25 09/21/25 10:11 Patient Tobacco Use Status Former Tobacco user 09/21/25 10:11 PHQ-9: PHQ-9 Score PHQ-9: Total score 0 09/21/25 10:11 Depression Screening Interpretation: Negative Thrive Assessment: Date of Thrive Assessment Date Thrive assessed 01/07/25 09/21/25 10:11 Narrative Physical Exam General: Appearance normal, both eyes and all related structures Nutritional Appearance: Well nourished Orientation/consciousness: Patient oriented x3 Limitations: No limitations Head: Normal to inspection Neck: Normal visual inspection Chest: Normal palpation of entire chest wall Respiratory: Occasional shortness of breath Neurology: Patient oriented x3 Coding Level of Care Code Est Pt Level 4 (16062) Add On Problem Visit Only Diagnoses HTN (hypertension) I10 Additional Codes MATT-7 Assessment Billing - MATT-7 Assessment Tool: MATT-7 Assessment 93642 ([id number]) PHQ-9 - 56250 - PHQ-9 Billing: Yes ([id number]) Assessment & Plan Assessment & Plan (1) HTN (hypertension): Code(s): I10 - Essential (primary) hypertension Category: Medical Plan Plan - Furosemide will be discontinued as the patient's pedal edema is attributed to varicose veins, and the medication is causing fatigue without providing benefit. - The patient was advised to continue all other current medications as prescribed. - He is advised to restart his magnesium supplement to address the low magnesium level found on recent labs. - For management of venous insufficiency, the patient was counseled on proper foot care, including washing and thoroughly drying his feet, always wearing footwear, wearing appropriate socks, and using powder. - Surgical intervention for varicose veins is not recommended at this time, as he is not experiencing significant pain, inflammation, or recurrent infections. - The patient will keep his scheduled follow-up appointment in March. Discussion Notes I explained to the patient that the swelling in his feet is due to varicose veins and not a condition that requires the furosemide he was taking. I advised him to stop the furosemide, which he reported was causing fatigue. We discussed that surgery for his varicose veins is not necessary unless he develops pain, inflammation, or repeated infections, and the patient expressed he was not interested in pursuing surgery at this time. I emphasized the importance of meticulous foot care, including keeping his feet clean, dry, and protected, to prevent complications. I also advised him to restart his magnesium supplement due to his recent low lab value. The patient was instructed to continue all his other medications and keep his scheduled follow-up appointment in March. Patient Instructions - You can stop taking the furosemide (water pill), as the swelling in your feet is from your varicose veins. - Please continue taking all of your other medications as prescribed. - Restart your magnesium supplement. - Take good care of your feet: wash them daily and make sure they are completely dry, especially between the toes. - Do not go barefoot; always wear socks and shoes to protect your feet. - You can use powder on your feet to help keep them dry. - Keep your follow-up appointment scheduled for March.
== END 2025-09-21 11:05 | disposition home or self-care (01) ==
LOC: HO.HMCSH 10:01
PROVIDERS: PCP Internal Medicine; Visit Provider Internal Medicine
DX: I10 Essential (primary) hypertension (principal)

== ENCOUNTER → 2025-09-21 10:01 | Outpatient (BNVA) | payer MEDICARE, SELFPAY | PROVIDERS: PCP Internal Medicine; Visit Provider Internal Medicine | DX: R60.0 Localized edema (principal); I10 Essential (primary) hypertension; E61.2 Magnesium deficiency; Z13.31 Encounter for screening for depression | CPT/HCPCS: 96127; 99212 ==